=== PATIENT | female | born 1945 | race Caucasian/White ===

== ENCOUNTER 2016-11-22 11:21 | Emergency (ER) | payer OTHER, MEDICARE ==
[~2016-11-22] VITALS: Ht 160 cm; Wt 113.0 kg
[~2016-11-22 11:21] MED LIST: ACET-1256 PO; AMLO5TAB2 PO; ASPI81TA28 PO; ATOR-26 PO; CHOL2000 PO; CYAN10005 PO; EZET10TA63 PO; FAMO40TA6 PO; HYDR25TA4 PO; INSDGI SC; LEVO25TA5 PO; LISI-461 PO; METO25TA56 PO; NYST100010 TOP; OMEG10007 PO; OXYC-57 PO; REPA2TAB13 PO
[2016-11-22 11:32] VITALS: TEMP 36.6
[2016-11-22 11:43] VITALS: O2SAT 96
[2016-11-22] MEDS ORDERED: INSDGI SC (11:52)
[2016-11-22] MEDS ORDERED: MECLIZINE HCL 25 MG TAB PO STA (12:26)
[2016-11-22] MEDS ORDERED: SODIUM CHLORIDE 0.9% 1000ML 1,000 ML IV STA (12:26)
[2016-11-22 12:32] VITALS: Ht 160 cm; Wt 113.0 kg
[2016-11-22 12:39] LABS: BASO % 0.4 %; BASO ABS # 0.03 K/uL (0-0.2); COMPLETE YES; EOS % 3.4 %; IG% 0.7 %; LYMPH % 18.9 %; LYMPH ABS # 1.51 K/uL (1.2-3.4); MEAN CELL VOLUME 87.6 fL (80-100); MEAN CORPUSCULAR HEMOGLOBIN 29.3 pg (25-34); MEAN CORPUSCULAR HGB CONC 33.5 g/dl (32-36); MEAN PLATELET VOLUME 11.1 fL (7.4-10.4); MONO % 10.4 %; NEUT % 66.2 %; PLATELET COUNT 217 K/uL (130-400); RED BLOOD COUNT 4.91 M/uL (4.2-5.4); WHITE BLOOD COUNT 8.01 K/uL (4.8-10.8)
[2016-11-22] MEDS ORDERED: ONDANSETRON INJ 2 MG/ML 2 ML VIAL IV STA (12:46)
--- NOTE | 2016-11-22 12:54 | EMERGENCY ROOM VISIT NOTE ---
History Report prepared by Faith: Amina Howard Under the Supervision of: Dr. Hari Juares M.D. First contact with patient: 12:01 Chief Complaint: DIZZY Stated Complaint: DIZZY, LIGHT HEADED, SICK TO STOMACH Nursing Triage Summary: dizzy for approx one hour, "I feel a lot of pressure in my forehead and the back of my head" per pt. Pt states she had migraines in the past; has not had one for approx 20 years. Hx of vertigo in the past - states feels different. History of Present Illness The patient is a 71 year old female who presents to the Emergency Room with complaints of intermittent dizziness and lightheadedness starting a few minutes prior to arrival. She was doing laundry when she had an onset of her symptoms. She sat down and put her head back with worsening symptoms. She has symptoms relief with holding her head still. The episode lasted for about 10-15 minutes. She denies fevers, chills, cough, sneezing, chest pain, abdominal pain, or any other complaints. She had yogurt this morning. The patient reports normal fluid intake. She has a history of vertigo occurring a few years ago but reports that her current symptoms are much milder than her past vertigo symptoms. The patient also has a history of diabetes and hypertension. Source of History: patient Onset: a few minutes prior to arrival Position: other (global) Quality: other (dizziness and lightheadedness) Timing: intermittent Modifying Factors (Relieving): other (holding her head still) Associated Symptoms: No abdominal pain, No chest pain, No chills, No cough, No fevers Review of Systems See HPI for pertinent positives & negatives. A total of 10 systems reviewed and were otherwise negative. 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 (15) Perforated sigmoid colon (16) Perforation of sigmoid colon (17) Resistant hypertension (18) Urinary tract infection (19) Urinary tract infection (20) Urinary tract infection (21) Ventral hernia (22) Vertigo (23) Vomiting Surgical Problems: (1) Cholecystectomy (2) History of - section (3) History of ovarian cystectomy (4) Hx of cholecystectomy (5) Lens Replacement Nec (6) S/P exploratory laparotomy Family History Diabetes mellitus FH: hyperlipidemia Heart disease Stroke Social History Smoking Status: Never Smoker Alcohol Use: none Drug Use: none Marital Status: Housing Status: lives with family Occupation Status: retired Current/Historical Medications Scheduled Amlodipine Besylate (Norvasc), 5 MG PO QAM Aspirin (Aspirin Ec), 81 MG PO QAM Atorvastatin (Lipitor), 80 MG PO QAM Cephalexin Monohydrate (Keflex), 1 CAP PO BID Cholecalciferol (Vitamin D3), 1 CAP PO QAM Cyanocobalamin (Vitamin B-12), 1,000 MCG PO QAM Ezetimibe (Zetia), 10 MG PO HS Famotidine (Pepcid), 40 MG PO QAM Hydrochlorothiazide (Hctz), 25 MG PO QAM Insulin Glargine (Lantus), 80 UNITS SC QPM Levothyroxine Sodium (Levothyroxine Sodium), 1 TAB PO QAM Lisinopril (Zestril), 10 MG PO QAM Metoprolol Tartrate (Lopressor) (Lopressor), 50 MG PO BID Repaglinide (Prandin), 2-4 MG PO AC Scheduled PRN Meclizine Hcl (Meclizine Hcl), 1 TAB PO TID PRN for Dizziness or Vertigo Nystatin (Topical) (Nystop), 1 DOSE TOP TID PRN for RN Allergies Coded Allergies: Sulfa Antibiotics (Verified Allergy, Mild, "SULFA DRUGS"-HIVES, 11/22/16) Physical Exam Vital Signs Date Time Temp Pulse Resp B/P Pulse Ox O2 Delivery O2 Flow Rate FiO2 11/22/16 14:44 71 16 137/81 94 11/22/16 14:27 71 16 137/81 94 Room Air 11/22/16 13:52 75 11/22/16 13:07 71 15 158/86 95 Room Air 11/22/16 11:48 68 138/93 74 146/89 73 158/101 11/22/16 11:44 69 19 156/105 95 Room Air 11/22/16 11:43 96 Room Air 11/22/16 11:32 36.6 87 18 135/81 96 Room Air Physical Exam GENERAL: Patient is a healthy-appearing well-nourished HEAD: Normocephalic atraumatic EYES: Ocular movements intact pupils equal and react to light OROPHARYNX mucous membranes are moist no exudates present no erythema or edema present NECK: Supple no nuchal rigidity CHEST: Good equal expansion LUNGS: Clear and equal to auscultation CARDIAC: Normal S1 and S2 ABDOMEN: Soft nontender no guarding BACK: No CVA tenderness EXTREMITIES: No pain upon palpation normal muscle strength in all groups no clubbing cyanosis or edema NEURO: Patient is following commands is answering questions appropriately. Alert and oriented x3 Cranial Nerves 2-12 grossly intact. Positive Gretta-Hallpike maneuver on the left. Medical Decision & Procedures ER Provider Diagnostic Interpretation: X-ray results as stated below per my interpretation and radiologist interpretation. CT results as stated below per my review and radiologist interpretation: CHEST ONE VIEW PORTABLE CLINICAL HISTORY: Dizziness. Nausea. COMPARISON STUDY: Chest radiograph September 08, 2016. FINDINGS: Lung volumes are normal. There is no pneumothorax or pleural effusion. There is no evidence of pulmonary edema. Cardiac size is normal. Mild mediastinal widening and hilar enlargement is unchanged. IMPRESSION: 1. No acute cardiopulmonary findings. 2. Stable mild bilateral hilar enlargement. Electronically signed by: Roby Rios M.D. 11/22/2016 12:56 PM Dictated Date/Time: 11/22/2016 12:[address] CT DOSE: 537.48 mGy.cm HISTORY: Pt c/o dizziness TECHNIQUE: Multiaxial CT images of the head were performed without the use of intravenous contrast. Automated exposure control was utilized for this study. Comparison: Head CT 05/14/2014. Findings: The paranasal sinuses and mastoid air cells are clear. The calvarium and skull base are intact. There is no mass, hematoma, midline shift, acute infarct. White matter hypodensity is nonspecific but suggestive of microvascular ischemic change. The ventricles and sulci demonstrate mild age-related involutional changes. Old small lacunar infarcts seen within the right cerebellar hemisphere. Impression: No acute intracranial abnormality. Atrophy and microvascular ischemic changes. Electronically signed by: Varun Gabriel M.D. 11/22/2016 1:04 PM Dictated Date/Time: 11/22/2016 12:59 PM Laboratory Results 11/22/16 12:25 Red Blood Count 4.91, Mean Corpuscular Volume 87.6, Mean Corpuscular Hemoglobin 29.3, Mean Corpuscular Hemoglobin Concent 33.5, Mean Platelet Volume 11.1, Neutrophils (%) (Auto) 66.2, Lymphocytes (%) (Auto) 18.9, Monocytes (%) (Auto) 10.4, Eosinophils (%) (Auto) 3.4, Basophils (%) (Auto) 0.4, Neutrophils # (Auto ) 5.31, Lymphocytes # (Auto) 1.51, Monocytes # (Auto) 0.83, Eosinophils # (Auto ) 0.27, Basophils # (Auto) 0.03 11/22/16 12:25 Test 11/22/16 12:25 11/22/16 12:26 11/22/16 12:30 11/22/16 13:10 White Blood Count 8.01 K/uL (4.8-10.8) Red Blood Count 4.91 M/uL (4.2-5.4) Hemoglobin 14.4 g/dL (12.0-16.0) Hematocrit 43.0 % (37-47) Mean Corpuscular Volume 87.6 fL (80-100) Mean Corpuscular Hemoglobin 29.3 pg (25-34) Mean Corpuscular Hemoglobin Concent 33.5 g/dl (32-36) Platelet Count 217 K/uL (130-400) Mean Platelet Volume 11.1 fL (7.4-10.4) Neutrophils (%) (Auto) 66.2 % Lymphocytes (%) (Auto) 18.9 % Monocytes (%) (Auto) 10.4 % Eosinophils (%) (Auto) 3.4 % Basophils (%) (Auto) 0.4 % Neutrophils # (Auto) 5.31 K/uL (1.4-6.5) Lymphocytes # (Auto) 1.51 K/uL (1.2-3.4) Monocytes # (Auto) 0.83 K/uL (0.11-0.59) Eosinophils # (Auto) 0.27 K/uL (0-0.5) Basophils # (Auto) 0.03 K/uL (0-0.2) RDW Standard Deviation 56.6 fL (36.4-46.3) RDW Coefficient of Variation 17.7 % (11.5-14.5) Immature Granulocyte % (Auto) 0.7 % Immature Granulocyte # (Auto) 0.06 K/uL (0.00-0.02) Anion Gap 7.0 mmol/L (3-11) Est Creatinine Clear Calc Drug Dose 60.6 ml/min Estimated GFR () 64.7 Estimated GFR (Non- 55.8 BUN/Creatinine Ratio 17.1 (10-20) Calcium Level 9.2 mg/dl (8.5-10.1) Total Bilirubin 0.5 mg/dl (0.2-1) Direct Bilirubin < 0.1 mg/dl (0-0.2) Aspartate Amino Transf (AST/SGOT) 21 U/L (15-37) Alanine Aminotransferase (ALT/SGPT) 36 U/L (12-78) Alkaline Phosphatase 101 U/L (45-117) Total Creatine Kinase 96 U/L (26-192) Creatine Kinase MB 1.2 ng/ml (0.5-3.6) Troponin I < 0.015 ng/ml (0-0.045) Total Protein 7.5 gm/dl (6.4-8.2) Albumin 3.5 gm/dl (3.4-5.0) Thyroid Stimulating Hormone (TSH) 2.860 uIu/ml (0.300-4.500) Creatine Kinase MB Ratio (0-3.0) Bedside Glucose 131 mg/dl (70-90) Urine Color YELLOW Urine Appearance CLEAR (CLEAR) Urine pH 5.0 (4.5-7.5) Urine Specific Maud 1.014 (1.000-1.030) Urine Protein NEG (NEG) Urine Glucose (UA) NEG (NEG) Urine Ketones NEG (NEG) Urine Occult Blood TRACE (NEG) Urine Nitrite NEG (NEG) Urine Bilirubin NEG (NEG) Urine Urobilinogen NEG (NEG) Urine Leukocyte Esterase NEG (NEG) Urine WBC (Auto) 1-5 /hpf (0-5) Urine RBC (Auto) 0-4 /hpf (0-4) Urine Hyaline Casts (Auto) 1-5 /lpf (0-5) Urine Epithelial Cells (Auto) >30 /lpf (0-5) Urine Bacteria (Auto) NEG (NEG) Labs reviewed by ED physician. Medications Administered Medications (Trade) Dose Ordered Sig/Evans Route Start Time Stop Time Status Last Admin Dose Admin Sodium Chloride (Nss 1000ml) 1,000 ml @ 999 mls/hr Q1H1M STAT IV 11/22/16 12:26 11/22/16 13:26 DC 11/22/16 13:06 999 MLS/HR Meclizine HCl (Antivert Tab) 25 mg NOW STAT PO 11/22/16 12:26 11/22/16 12:29 DC 11/22/16 13:07 25 MG Ondansetron HCl (Zofran Inj) 4 mg NOW STAT IV 11/22/16 12:46 11/22/16 12:47 DC 11/22/16 13:06 4 MG Ceftriaxone Sodium (Rocephin Inj) 1 gm NOW STAT IV 11/22/16 13:22 11/22/16 13:23 DC 11/22/16 13:29 1 GM ECG Indication: other (dizziness) Rate (beats per minute): 69 Rhythm: normal sinus Findings: no acute ischemic change, no ectopy ED Course 1201: Past medical records reviewed. The patient was evaluated in room B11B. A complete history and physical examination was performed. 1226: Antivert Tab 25 mg PO, Sodium Chloride 1000 ml @ 999 mls/hr IV 1246: Zofran Inj 4 mg IV 1322: Rocephin Inj 1 gm IV 1430: Upon reexamination the patient is resting comfortably. I discussed results and treatment plan with the patient. She verbalizes agreement and understanding. The patient is ready for discharge. Medical Decision Differential diagnosis: Etiologies such as benign positional vertigo, dehydration, hypovolemia, anemia, tumor, infection, hypoglycemia, electrolyte abnormalities, cardiac sources, intracerebral event, toxicologic, neurologic, as well as others were entertained. This is a 71-year-old female who presents emergency department with complaints of dizziness. The patient does have a positive Gretta-Hallpike maneuver on the left. This reason she was given IV saline bolus along with Zofran and meclizine. Repeat examination revealed improvement patient's symptoms. The patient does appear to have small amount of blood in her urine as well and I will place her on Rocephin pending urine culture results. Patient was in agreement with the treatment plan. Prior to discharge the patient was able to ambulate and appeared well. I stressed the need to return if her symptoms were not improving. Impression Primary Impression: Dizziness Scribe Attestation The scribe's documentation has been prepared under my direction and personally reviewed by me in its entirety. I confirm that the note above accurately reflects all work, treatment, procedures, and medical decision making performed by me. Departure Information Dispostion Home / Self-Care Prescriptions Cephalexin Monohydrate (Keflex) 500 Mg Cap 1 CAP PO BID for 7 Days, #14 CAP Prov: Hari Juares MD 11/22/16 Meclizine Hcl (MECLIZINE HCL) 25 Mg Tab 1 TAB PO TID Y for Dizziness or Vertigo for 10 Days, #30 TAB Prov: Hari Juares MD 11/22/16 Referrals Dalton Soriano M.D. (PCP) Forms HOME CARE DOCUMENTATION FORM, IMPORTANT VISIT INFORMATION Patient Instructions Dizziness Vertigo Inner Ear, ED Dizziness [facility], [facility], Vertigo Paroxysmal Positional Additional Instructions You have been examined and treated today on an emergency basis only. This is not a substitute for, or an effort to provide, complete comprehensive medical care. It is impossible to recognize and treat all injuries or illnesses in a single emergency department visit. It is therefore important that you follow up closely with Dr Soriano. Call as soon as possible for an appointment. Thank you for your time and consideration. I look forward to speaking with you again soon. Please don't hesitate to call us if you have any questions.
--- NOTE | 2016-11-22 12:57 | DIAGNOSTIC IMAGING REPORT ---
CHEST ONE VIEW PORTABLE CLINICAL HISTORY: Dizziness. Nausea. COMPARISON STUDY: Chest radiograph September 08, 2016. FINDINGS: Lung volumes are normal. There is no pneumothorax or pleural effusion. There is no evidence of pulmonary edema. Cardiac size is normal. Mild mediastinal widening and hilar enlargement is unchanged. IMPRESSION: 1. No acute cardiopulmonary findings. 2. Stable mild bilateral hilar enlargement. Electronically signed by: Roby Rios M.D. 11/22/2016 12:56 PM Dictated Date/Time: 11/22/2016 12:51 PM
--- NOTE | 2016-11-22 13:06 | DIAGNOSTIC IMAGING REPORT ---
HEAD CT NONCONTRAST CT DOSE: 537.48 mGy.cm HISTORY: Pt c/o dizziness TECHNIQUE: Multiaxial CT images of the head were performed without the use of intravenous contrast. Automated exposure control was utilized for this study. Comparison: Head CT 05/14/2014. Findings: The paranasal sinuses and mastoid air cells are clear. The calvarium and skull base are intact. There is no mass, hematoma, midline shift, acute infarct. White matter hypodensity is nonspecific but suggestive of microvascular ischemic change. The ventricles and sulci demonstrate mild age-related involutional changes. Old small lacunar infarcts seen within the right cerebellar hemisphere. Impression: No acute intracranial abnormality. Atrophy and microvascular ischemic changes. Electronically signed by: Varun Gabriel M.D. 11/22/2016 1:04 PM Dictated Date/Time: 11/22/2016 12:59 PM
[2016-11-22 13:12] LABS: ALKALINE PHOSPHATASE 101 U/L (45-117); ALT/SGPT 36 U/L (12-78); BLOOD UREA NITROGEN 17 mg/dl (7-18); CALCIUM 9.2 mg/dl (8.5-10.1); CARBON DIOXIDE 28 mmol/L (21-32); CHLORIDE 106 mmol/L (98-107); GLUCOSE 150 mg/dl (70-99); SODIUM 141 mmol/L (136-145)
[2016-11-22 13:13] LABS: BUN/CREATININE RATIO 17.1 (10-20); CKMB/CK RATIO 1.3 (0-3.0)
[2016-11-22] MEDS ORDERED: CEFTRIAXONE SOD INJ 1 GM ADDVIAL IV STA (13:22)
[2016-11-22 13:28] LABS: AST/SGOT 21 U/L (15-37); POTASSIUM 4.5 mmol/L (3.5-5.1)
[2016-11-22 13:39] LABS: URINE APPEARANCE CLEAR (CLEAR); URINE BILIRUBIN NEG (NEG); URINE COLOR YELLOW; URINE EPITHELIAL CELL AUTO >30 /lpf (0-5); URINE NITRITE NEG (NEG); URINE SPECIFIC GRAVITY 1.014 (1.000-1.030); UROBILINOGEN NEG (NEG)
[2016-11-22 13:53] LABS: MANUAL MICROSCOPIC REQUIRED? NO; REVIEW REQ? NO
[2016-11-22] MEDS ORDERED: MECL1TAB42 PO (14:23)
[2016-11-22] MEDS ORDERED: CEPH500C PO (14:24)
[2016-11-22 14:44] VITALS: BP 137/81; PULSE 71; O2SAT 94
[2017-04-09] MEDS ORDERED: REPA2TAB13 PO ×2 (15:16)
== END 2016-11-22 14:44 | disposition home or self-care (01) ==
LOC: C.EDB 11:23
DX: R42 Dizziness and giddiness (principal); E11.9 Type 2 diabetes mellitus without complications; I12.9 Hypertensive chronic kidney disease with stage 1 through stage 4 chronic kidney disease, or unspecified chronic kidney disease; N18.9 Chronic kidney disease, unspecified; E78.5 Hyperlipidemia, unspecified; E03.9 Hypothyroidism, unspecified; K57.90 Diverticulosis of intestine, part unspecified, without perforation or abscess without bleeding; K57.92 Diverticulitis of intestine, part unspecified, without perforation or abscess without bleeding; Z87.440 Personal history of urinary (tract) infections; Z87.442 Personal history of urinary calculi; Z90.49 Acquired absence of other specified parts of digestive tract; Z79.82 Long term (current) use of aspirin; Z79.4 Long term (current) use of insulin; Z79.899 Other long term (current) drug therapy; Z88.2 Allergy status to sulfonamides; Z83.3 Family history of diabetes mellitus; Z82.49 Family history of ischemic heart disease and other diseases of the circulatory system; Z82.3 Family history of stroke

== ENCOUNTER → 2016-12-07 | Outpatient (CLI) | payer OTHER, MEDICARE ==
[~2016-12-07] MED LIST changes: -ACET-1256 PO; +ATOR-24 PO; -OMEG10007 PO; -OXYC-57 PO
[2016-12-07 13:20] LABS: ESTIMATED AVERAGE GLUCOSE 180 mg/dl; HA1C FLAG Normal (Normal)
== END | disposition home or self-care (01) ==
LOC: C.LABPVFM 08:05
PROVIDERS: ATTEND Nurse Practitioner Adult Health
DX: E03.9 Hypothyroidism, unspecified (principal); E11.21 Type 2 diabetes mellitus with diabetic nephropathy

== ENCOUNTER → 2017-02-13 | Outpatient (CLI) | payer OTHER, MEDICARE ==
[~2017-02-13] MED LIST changes: +REPA2TAB12 PO; -REPA2TAB13 PO
[2017-02-13 13:21] LABS: CHOLESTEROL/HDL RATIO 2.9
== END | disposition home or self-care (01) ==
LOC: C.LABPVFM 07:34
PROVIDERS: ATTEND Family Medicine
DX: E78.5 Hyperlipidemia, unspecified (principal); E03.9 Hypothyroidism, unspecified; I10 Essential (primary) hypertension; E11.29 Type 2 diabetes mellitus with other diabetic kidney complication; K21.9 Gastro-esophageal reflux disease without esophagitis

== ENCOUNTER → 2017-03-13 | Outpatient (CLI) | payer OTHER, MEDICARE ==
[2017-03-13 12:25] LABS: ESTIMATED AVERAGE GLUCOSE 192 mg/dl; HA1C FLAG Normal (Normal)
== END | disposition home or self-care (01) ==
LOC: C.LABPVFM 07:21
PROVIDERS: ATTEND Nurse Practitioner Adult Health
DX: Z79.899 Other long term (current) drug therapy (principal)

== ENCOUNTER → 2017-04-07 | Outpatient (CLI) | payer OTHER, MEDICARE ==
[2017-04-07 13:03] LABS: URINE APPEARANCE TURBID (CLEAR); URINE BILIRUBIN NEG (NEG); URINE COLOR YELLOW; URINE EPITHELIAL CELL AUTO 20-30 /lpf (0-5); URINE NITRITE NEG (NEG); UROBILINOGEN NEG (NEG); ZZUR CULT IF INDIC CLEAN CATCH NO
[2017-04-07 13:05] LABS: MANUAL MICROSCOPIC REQUIRED? NO; REVIEW REQ? NO
[2017-04-07 13:08] LABS: URINE PROTIEN/CREAT RATIO 0.1 (0-0.2); URINE TOTAL PROTEIN 15.1 mg/dl (0-11.9)
[2017-04-07 13:22] LABS: BLOOD UREA NITROGEN 23 mg/dl (7-18); BUN/CREATININE RATIO 17.8 (10-20); CARBON DIOXIDE 28 mmol/L (21-32); CHLORIDE 106 mmol/L (98-107); GLUCOSE 136 mg/dl (70-99); MAGNESIUM 2.1 mg/dl (1.8-2.4); PHOSPHORUS 2.8 mg/dl (2.5-4.9); SODIUM 141 mmol/L (136-145)
[2017-04-07 13:31] LABS: CALCIUM 9.6 mg/dl (8.5-10.1)
--- NOTE | 2017-04-13 09:12 | CODING QUERY MEDICAL NECESSITY ---
SUPPORTING DIAGNOSIS NEEDED Dr. Car, A supporting diagnosis is required for the test/procedure performed on this patient in order for us to be reimbursed by the patient's insurance. Please provide a supporting diagnosis for the following test/procedure listed below next to the test name along with your signature. *If there is no additional diagnosis for this patient that would support the following test/procedure please document that below next to the test/procedure. Test(s)/Procedure(s) that require a supporting diagnosis: * ([id number]) VITAMIN D ASSAY DIAGNOSIS: DATE OF SERVICE: 04/07/17 Provider Signature: Date: Thank you Heath Aguilar [facility] Information Management Once completed, please kindly fax back to [phone] For questions please call [phone]
== END | disposition home or self-care (01) ==
LOC: C.LABPVFM 08:19
PROVIDERS: ATTEND Internal Medicine Nephrology
DX: N20.0 Calculus of kidney (principal); E55.9 Vitamin D deficiency, unspecified

== ENCOUNTER 2017-04-09 13:15 | Emergency (ER) | payer OTHER, MEDICARE ==
[~2017-04-09] VITALS: Ht 160 cm; Wt 113.0 kg
[~2017-04-09 13:15] MED LIST changes: -ATOR-24 PO
[2017-04-09 13:21] VITALS: Ht 160 cm; Wt 113.0 kg
[2017-04-09] MEDS ORDERED: SODIUM CHLORIDE 0.9% 500ML 500 ML IV STA (13:51)
[2017-04-09 14:00] LABS: BASO % 0.5 %; BASO ABS # 0.03 K/uL (0-0.2); COMPLETE YES; EOS % 2.8 %; HEMATOCRIT 46.1 % (37-47); IG% 0.3 %; LYMPH % 23.1 %; LYMPH ABS # 1.47 K/uL (1.2-3.4); MEAN CELL VOLUME 87.8 fL (80-100); MEAN PLATELET VOLUME 11.1 fL (7.4-10.4); NEUT % 62.3 %; PLATELET COUNT 194 K/uL (130-400); RED BLOOD COUNT 5.25 M/uL (4.2-5.4); WHITE BLOOD COUNT 6.36 K/uL (4.8-10.8)
[2017-04-09] MEDS ORDERED: FENTANYL CITRATE INJ 50 MCG/1 ML 2 ML VIAL IV PRN (14:00)
[2017-04-09 14:05] LABS: URINE APPEARANCE CLEAR (CLEAR); URINE BILIRUBIN NEG (NEG); URINE COLOR YELLOW; URINE EPITHELIAL CELL AUTO >30 /lpf (0-5); URINE NITRITE NEG (NEG); URINE PH 5.5 (4.5-7.5); URINE SPECIFIC GRAVITY 1.017 (1.000-1.030); UROBILINOGEN NEG (NEG); ZZUR CULT IF INDIC CLEAN CATCH YES
[2017-04-09 14:06] LABS: MANUAL MICROSCOPIC REQUIRED? NO; REVIEW REQ? NO
--- NOTE | 2017-04-09 14:12 | DIAGNOSTIC IMAGING REPORT ---
SINGLE VIEW CHEST CLINICAL HISTORY: Trauma. Atypical chest pain. FINDINGS: An AP, portable, upright chest radiograph is compared to study dated 11/22/2016. The examination is degraded by portable technique, large body habitus, and patient rotation. The heart is mildly enlarged and there is atherosclerotic calcification of the thoracic aorta. The pulmonary vasculature is noncongested chronic interstitial thickening is similar previous. The lungs and pleural spaces are clear. No pneumothorax is seen. The skeletal structures are osteopenic. The bony thorax is grossly intact. IMPRESSION: Mild cardiac enlargement with no acute cardiopulmonary abnormality. Electronically signed by: Ignacio Cabrera M.D. 04/09/2017 2:10 PM Dictated Date/Time: 04/09/2017 2:10 PM
[2017-04-09 14:43] LABS: ALKALINE PHOSPHATASE 87 U/L (45-117); ALT/SGPT 29 U/L (12-78); BLOOD UREA NITROGEN 23 mg/dl (7-18); BUN/CREATININE RATIO 16.3 (10-20); CALCIUM 8.8 mg/dl (8.5-10.1); CARBON DIOXIDE 27 mmol/L (21-32); CHLORIDE 106 mmol/L (98-107); GLUCOSE 191 mg/dl (70-99); SODIUM 142 mmol/L (136-145)
--- NOTE | 2017-04-09 14:44 | EMERGENCY ROOM VISIT NOTE ---
History First contact with patient: 13:40 Chief Complaint: ABDOMINAL PAIN Stated Complaint: STOMACH PAIN,POSSIBLE KIDNEY STONE Nursing Triage Summary: pt to [facility] ED with migastric abd pain that started today and is concerned about her hernia or a kidney stone History of Present Illness The patient is a 72 year old female who presents to the Emergency Room with complaints of left-sided abdominal pain that started around 10 AM today. Patient states the pain came on rather suddenly, initially felt like gas pain but continued to get more severe and did not improve, aching in nature, 05/15. No associated symptoms of nausea, vomiting, diarrhea, constipation, dysuria or hematuria, fevers or chills. She did not try any [id number] medications for her pain. Patient reports a normal bowel movement this morning. She has been tolerating food, last ate at 11 AM today. She reports a history of diverticulitis and multiple kidney stones in the past, states this feels different than both of those problems. She also has a history of a ventral hernia that was surgically repaired in September 2016 and she has been doing well since that procedure. She denies chest pain, shortness of breath, back pain, rashes. Review of Systems GENERAL: Denies fevers, chills, malaise, fatigue, unintentional weight changes. HEENT: Denies dizziness, visual problems, hearing loss, tinnitus. Denies difficulty swallowing or oral lesions. PULMONARY: Denies cough, shortness of breath, sputum production or hemoptysis. CARDIOVASCULAR: Denies chest pain, palpitations, dyspnea on exertion, orthopnea or peripheral edema. + History of hypertension. GASTROINTESTINAL: + Abdominal pain. Denies diarrhea, constipation, nausea, vomiting, or hematochezia. GENITOURINARY: Denies dysuria, frequency, urgency or nocturia. NEUROLOGIC: Denies history of epilepsy, CVA, TIA or chronic headaches. MUSCULOSKELETAL: Denies history of joint tenderness/swelling. SKIN: Denies rashes or lesions. PSYCHIATRIC: Denies history of depression or mental illness. ENDOCRINE: + History of diabetes, hypothyroidism. 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 (6) Diverticulitis (7) Diverticulitis of sigmoid colon (8) Diverticulosis of sigmoid colon (9) Headache (10) Hyperlipidemia Nec/Nos (11) Hypertension Nos (12) Hypothyroidism Nos (13) Kidney stones (14) [place]'s syndrome (15) Perforated sigmoid colon (16) Perforation of sigmoid colon (17) Resistant hypertension (18) Urinary tract infection (19) Urinary tract infection (20) Urinary tract infection (21) Ventral hernia (22) Vertigo (23) Vomiting Surgical Problems: (1) Cholecystectomy (2) History of - section (3) History of ovarian cystectomy (4) Hx of cholecystectomy (5) Lens Replacement Nec (6) S/P exploratory laparotomy Family History Diabetes mellitus FH: hyperlipidemia Heart disease Stroke Social History Smoking Status: Never Smoker Alcohol Use: none Drug Use: none Marital Status: Housing Status: lives with family Occupation Status: retired Current/Historical Medications Scheduled Amlodipine Besylate (Norvasc), 5 MG PO QAM Aspirin (Aspirin Ec), 81 MG PO QAM Atorvastatin (Lipitor), 40 MG PO DAILY Cholecalciferol (Vitamin D3), 1 CAP PO QAM Cyanocobalamin (Vitamin B-12), 1,000 MCG PO QAM Ezetimibe (Zetia), 10 MG PO HS Hydrochlorothiazide (Hctz), 25 MG PO QAM Insulin Glargine (Lantus), 100 UNITS SC QPM Levothyroxine Sodium (Levothyroxine Sodium), 1 TAB PO QAM Lisinopril (Zestril), 10 MG PO QAM Metoprolol Tartrate (Lopressor) (Lopressor), 50 MG PO BID Repaglinide (Prandin), 4 MG PO DIRECTED Repaglinide (Prandin), 6 MG PO QPM Scheduled PRN Nystatin (Topical) (Nystop), 1 DOSE TOP TID PRN for RN Allergies Coded Allergies: Sulfa Antibiotics (Verified Allergy, Mild, "SULFA DRUGS"-HIVES, 11/22/16) Physical Exam Vital Signs Date Time Temp Pulse Resp B/P (MAP) Pulse Ox O2 Delivery O2 Flow Rate FiO2 04/09/17 17:01 36.6 69 18 138/71 94 04/09/17 16:08 69 18 138/71 94 Room Air 04/09/17 14:32 65 16 90 Room Air 04/09/17 14:29 66 04/09/17 13:21 36.6 80 20 151/78 90 Room Air Physical Exam CONSTITUTIONAL: No acute distress. Well appearing and well nourished. She is nontoxic appearing. She appears well-hydrated. Alert and oriented X 4 with normal affect. HEENT: Normocephalic, atraumatic. Pupils equal, round and reactive to light, EOMI. TMs normal. Pharynx normal. Moist mucous membranes. NECK: Supple, full active range of motion without discomfort. RESPIRATORY: Clear to auscultation bilaterally with no wheezing, crackles, rhonchi or stridor. Equal expansion bilaterally. CARDIOVASCULAR: Regular rate and rhythm with no murmurs, rubs or gallops. Normal peripheral perfusion. No edema. GASTROINTESTINAL: Soft, obese, nondistended. Bowel sounds present in all quadrants. Moderate tenderness in the left mid abdomen and flank. No epigastric or periumbilical tenderness to palpation. No rebound, no guarding. MUSCULOSKELETAL: Full range of motion of all joints without discomfort. INTEGUMENTARY: No rash or other significant dermatologic conditions noted. NEUROLOGIC: Cranial nerves II-XII grossly intact. No focal neurologic deficits noted. Medical Decision & Procedures ER Provider Diagnostic Interpretation: ABDOMEN AND PELVIS CT WITHOUT CONTRAST CT DOSE: 1890.57 mGy.cm HISTORY: Flank pain, eval for stone TECHNIQUE: Multiaxial CT images of the abdomen and pelvis were performed without the use of intravenous and oral contrast according to the standard department stone protocol. COMPARISON STUDY: Abdomen and pelvis CT 09/08/2016. FINDINGS: Mild dependent changes at the lung bases. No pneumoperitoneum. No pneumatosis. No fractures within the visualized osseous structures. Lower midline ventral hernia repair is again noted. Small diverticulum at the duodenum. Cholecystectomy. The unenhanced liver demonstrates a stable 7 mm hypodense lesion within the right hepatic lobe. This is too small to characterize. The unenhanced spleen, adrenal glands, and pancreas are unremarkable. There is a 2.2 cm stone within the right kidney, unchanged. There are few additional punctate right renal calculi. No left renal calculi. Small left peripelvic renal cysts. A 5.5 cm hypodense lesion within the left kidney and a 1.2 cm hypodense lesion within the right kidney. These are incomplete characterize on this noncontrast study but favor cysts. Mild bilateral perinephric edema, unchanged. No ureteral stones. No hydronephrosis. The bladder is unremarkable. A 1 cm cyst within the left ovary. Normal uterus and right ovary. Suboptimal evaluation for bowel pathology due to the lack of intravenous and oral contrast. However, there is no definite bowel wall thickening or obstruction. Extensive colonic diverticulosis. Normal appendix. IMPRESSION: 1. Stable right-sided nephrolithiasis. No hydronephrosis. 2. No definite bowel wall thickening or obstruction. 3. Colonic diverticulosis. 4. Normal appendix. ----- SINGLE VIEW CHEST CLINICAL HISTORY: Trauma. Atypical chest pain. FINDINGS: An AP, portable, upright chest radiograph is compared to study dated 11/22/2016. The examination is degraded by portable technique, large body habitus, and patient rotation. The heart is mildly enlarged and there is atherosclerotic calcification of the thoracic aorta. The pulmonary vasculature is noncongested chronic interstitial thickening is similar previous. The lungs and pleural spaces are clear. No pneumothorax is seen. The skeletal structures are osteopenic. The bony thorax is grossly intact. IMPRESSION: Mild cardiac enlargement with no acute cardiopulmonary abnormality. Laboratory Results 04/09/17 13:45 Red Blood Count 5.25, Mean Corpuscular Volume 87.8, Mean Corpuscular Hemoglobin 29.0, Mean Corpuscular Hemoglobin Concent 33.0, Mean Platelet Volume 11.1, Neutrophils (%) (Auto) 62.3, Lymphocytes (%) (Auto) 23.1, Monocytes (%) (Auto) 11.0, Eosinophils (%) (Auto) 2.8, Basophils (%) (Auto) 0.5, Neutrophils # (Auto ) 3.96, Lymphocytes # (Auto) 1.47, Monocytes # (Auto) 0.70, Eosinophils # (Auto ) 0.18, Basophils # (Auto) 0.03 04/09/17 13:45 Test 04/09/17 13:40 04/09/17 13:45 04/09/17 15:21 Urine Color YELLOW Urine Appearance CLEAR (CLEAR) Urine pH 5.5 (4.5-7.5) Urine Specific [place] 1.017 (1.000-1.030) Urine Protein NEG (NEG) Urine Glucose (UA) 1+ (NEG) Urine Ketones NEG (NEG) Urine Occult Blood 2+ (NEG) Urine Nitrite NEG (NEG) Urine Bilirubin NEG (NEG) Urine Urobilinogen NEG (NEG) Urine Leukocyte Esterase SMALL (NEG) Urine WBC (Auto) 10-30 /hpf (0-5) Urine RBC (Auto) 10-30 /hpf (0-4) Urine Hyaline Casts (Auto) 0 /lpf (0-5) Urine Epithelial Cells (Auto) >30 /lpf (0-5) Urine Bacteria (Auto) NEG (NEG) White Blood Count 6.36 K/uL (4.8-10.8) Red Blood Count 5.25 M/uL (4.2-5.4) Hemoglobin 15.2 g/dL (12.0-16.0) Hematocrit 46.1 % (37-47) Mean Corpuscular Volume 87.8 fL (80-100) Mean Corpuscular Hemoglobin 29.0 pg (25-34) Mean Corpuscular Hemoglobin Concent 33.0 g/dl (32-36) Platelet Count 194 K/uL (130-400) Mean Platelet Volume 11.1 fL (7.4-10.4) Neutrophils (%) (Auto) 62.3 % Lymphocytes (%) (Auto) 23.1 % Monocytes (%) (Auto) 11.0 % Eosinophils (%) (Auto) 2.8 % Basophils (%) (Auto) 0.5 % Neutrophils # (Auto) 3.96 K/uL (1.4-6.5) Lymphocytes # (Auto) 1.47 K/uL (1.2-3.4) Monocytes # (Auto) 0.70 K/uL (0.11-0.59) Eosinophils # (Auto) 0.18 K/uL (0-0.5) Basophils # (Auto) 0.03 K/uL (0-0.2) RDW Standard Deviation 52.3 fL (36.4-46.3) RDW Coefficient of Variation 16.5 % (11.5-14.5) Immature Granulocyte % (Auto) 0.3 % Immature Granulocyte # (Auto) 0.02 K/uL (0.00-0.02) Anion Gap 9.0 mmol/L (3-11) Est Creatinine Clear Calc Drug Dose 42.6 ml/min Estimated GFR () 42.8 Estimated GFR (Non- 36.9 BUN/Creatinine Ratio 16.3 (10-20) Calcium Level 8.8 mg/dl (8.5-10.1) Total Bilirubin 0.5 mg/dl (0.2-1) Direct Bilirubin mg/dl (0-0.2) Aspartate Amino Transf (AST/SGOT) U/L (15-37) Alanine Aminotransferase (ALT/SGPT) 29 U/L (12-78) Alkaline Phosphatase 87 U/L (45-117) Total Protein 7.0 gm/dl (6.4-8.2) Albumin 3.4 gm/dl (3.4-5.0) Lipase 177 U/L (73-393) Bedside Glucose 139 mg/dl (70-90) Medications Administered Medications (Trade) Dose Ordered Sig/Evans Route Start Time Stop Time Status Last Admin Dose Admin Fentanyl Citrate (Fentanyl Inj) 50 mcg Q20M PRN IV 04/09/17 14:00 04/09/17 18:16 DC 04/09/17 14:22 50 MCG Sodium Chloride 500 ml @ 999 mls/hr Q31M STAT IV 04/09/17 13:51 04/09/17 14:21 DC 04/09/17 14:21 999 MLS/HR Medical Decision CC: Patient presenting with complaint of left-sided abdominal pain Interpretation of Labs: No leukocytosis, no anemia, hyperglycemia, no other significant electrolyte abnormalities, renal function at baseline compared to previous, liver function wnl. Questionable UTI given leuk esterase and 10-30 WBCs, however no nitrites or bacteria noted. Urine culture pending Differential Diagnosis: Includes, but not limited to pancreatitis, GERD, gastritis, PUD, renal colic, ureteral stone, diverticulitis, colitis, UTI. Medication Reconciliation: I attest that I have personally reviewed the patient' s current medication list. Vital signs review: I reviewed the patient's vital signs and interpret them as follows: T: Afebrile; BP: Hypertensive; HR: Within normal limits; RR: Within normal limits; Pulse Ox: WNL on room air. Blood pressure screening: The patient was found to have an elevated blood pressure and was referred to their primary doctor for recheck and further treatment. Summary: Patient was evaluated at bedside, history of physical exam performed. Patient is alert and oriented, no acute distress, well-hydrated and nontoxic- appearing. Patient does have moderate tenderness to palpation of the left mid abdomen and flank, no epigastric or left upper quadrant tenderness. No CVA tenderness bilaterally. Orders were placed at bedside for labs, urinalysis, IV fluid bolus, IV fentanyl to treat pain, and CT abdomen/pelvis to evaluate for ureteral stone, diverticulitis, other abdominal pathology. Patient discussed with Dr. Ryan, who agrees with my assessment and plan. Labs reviewed, no significant acute abnormalities. Chest x-ray ordered by nursing protocol, reviewed and no acute findings. CT reviewed, no acute findings, specifically no ureteral stone, no diverticulitis. Patient's chart reviewed, multiple previous urine cultures noted that were all negative. Discussed urinalysis results with patient, she denies any symptoms of UTI. Urine culture is pending, will defer treatment at this time awaiting culture results. Patient agreeable to this plan. Patient reassessed multiple times throughout ED stay, her pain is resolved after IV fluids and fentanyl. I discussed all results with patient and plan for discharge, encouraged her to follow closely with her PCP, and gave her strict return precautions. Patient verbalized understanding, and was discharged home in stable condition. Impression Primary Impression: Left sided abdominal pain Departure Information Dispostion Home / Self-Care Condition GOOD Referrals Dalton Soriano M.D. (PCP) Patient Instructions ED Abdominal Pain Unkn Cause, My [facility] Additional Instructions You have been treated in the Emergency Department your Abdominal Pain. Laboratory results and imaging studies have ruled out any emergent causes for your abdominal pain which would warrant admission or surgery. For pain control, you can use the following [id number] medicines: - Regular strength (325mg/tab) Tylenol (acetaminophen) 2 tabs every 4-6 hours as needed. Do not exceed 10 tablets in a 24 hour period. Avoid taking more than 3 grams (3000 mg) of Tylenol per day. This includes any other sources of acetaminophen you may take on a regular basis. - Regular strength (200 mg/tab) Advil (ibuprofen) 1-2 tabs every 4-6 hours as needed. Do not exceed a dose of 3200 mg per day. You may also try applying a heating pad to your abdomen for comfort. Drink plenty of water and stay well hydrated. As with any trip to the Emergency Department, you should follow-up with your Primary Care Provider from today's visit. Call your doctor tomorrow to set up an appointment for follow-up. Please return to the emergency department if your symptoms persist despite treatment plan outlined above or if the following symptoms occur: Worsening pain , severe nausea/vomiting, blood in your stool or urine, fever/chills.
[2017-04-09] MEDS ORDERED: REPA2TAB12 PO ×2 (15:16)
[2017-04-09] MEDS ORDERED: ATOR-24 PO (15:16)
--- NOTE | 2017-04-09 15:42 | DIAGNOSTIC IMAGING REPORT ---
ABDOMEN AND PELVIS CT WITHOUT CONTRAST CT DOSE: 1890.57 mGy.cm HISTORY: Flank pain, eval for stone TECHNIQUE: Multiaxial CT images of the abdomen and pelvis were performed without the use of intravenous and oral contrast according to the standard department stone protocol. COMPARISON STUDY: Abdomen and pelvis CT 09/08/2016. FINDINGS: Mild dependent changes at the lung bases. No pneumoperitoneum. No pneumatosis. No fractures within the visualized osseous structures. Lower midline ventral hernia repair is again noted. Small diverticulum at the duodenum. Cholecystectomy. The unenhanced liver demonstrates a stable 7 mm hypodense lesion within the right hepatic lobe. This is too small to characterize. The unenhanced spleen, adrenal glands, and pancreas are unremarkable. There is a 2.2 cm stone within the right kidney, unchanged. There are few additional punctate right renal calculi. No left renal calculi. Small left peripelvic renal cysts. A 5.5 cm hypodense lesion within the left kidney and a 1.2 cm hypodense lesion within the right kidney. These are incomplete characterize on this noncontrast study but favor cysts. Mild bilateral perinephric edema, unchanged. No ureteral stones. No hydronephrosis. The bladder is unremarkable. A 1 cm cyst within the left ovary. Normal uterus and right ovary. Suboptimal evaluation for bowel pathology due to the lack of intravenous and oral contrast. However, there is no definite bowel wall thickening or obstruction. Extensive colonic diverticulosis. Normal appendix. IMPRESSION: 1. Stable right-sided nephrolithiasis. No hydronephrosis. 2. No definite bowel wall thickening or obstruction. 3. Colonic diverticulosis. 4. Normal appendix. 5. Additional findings as described above. Electronically signed by: Varun Gabriel M.D. 04/09/2017 3:40 PM Dictated Date/Time: 04/09/2017 3:28 PM
[2017-04-09 17:01] VITALS: BP 138/71; PULSE 69; TEMP 36.6; O2SAT 94
--- NOTE | 2017-04-09 19:54 | EMERGENCY ROOM VISIT NOTE ---
ED Visit Note First contact with patient: 13:40 72-year-old female with left-sided abdominal pain was fully evaluated by Tatiana Olvera NP. Please see her note. I also independently evaluated the patient. The patient had multiple labs and imaging studies performed. Ultimately, the patient was felt safe to return home.
== END 2017-04-09 16:55 | disposition home or self-care (01) ==
LOC: C.EDB 13:16 → C.EDC 16:55
DX: R10.32 Left lower quadrant pain (principal); I10 Essential (primary) hypertension; E11.9 Type 2 diabetes mellitus without complications; K57.30 Diverticulosis of large intestine without perforation or abscess without bleeding; E78.5 Hyperlipidemia, unspecified; E03.9 Hypothyroidism, unspecified; Z87.442 Personal history of urinary calculi; Z79.82 Long term (current) use of aspirin; Z79.4 Long term (current) use of insulin; Z83.3 Family history of diabetes mellitus; Z82.49 Family history of ischemic heart disease and other diseases of the circulatory system; Z82.3 Family history of stroke

== ENCOUNTER → 2017-07-03 | Outpatient (CLI) | payer OTHER, MEDICARE ==
[~2017-07-03] MED LIST changes: +ATOR-24 PO; -ATOR-26 PO; -FAMO40TA6 PO; -REPA2TAB12 PO; +REPA2TAB13 PO
[2017-07-03 13:01] LABS: CHOLESTEROL/HDL RATIO 2.7
[2017-07-03 13:21] LABS: ESTIMATED AVERAGE GLUCOSE 160 mg/dl; HA1C FLAG Normal (Normal)
== END | disposition home or self-care (01) ==
LOC: C.LABPVFM 09:10
PROVIDERS: ATTEND Nurse Practitioner Adult Health
DX: E78.5 Hyperlipidemia, unspecified (principal); E03.9 Hypothyroidism, unspecified; E11.22 Type 2 diabetes mellitus with diabetic chronic kidney disease; N18.9 Chronic kidney disease, unspecified; Z79.4 Long term (current) use of insulin

== ENCOUNTER → 2017-08-21 | Outpatient (CLI) | payer OTHER, MEDICARE ==
[2017-08-21 12:58] LABS: BLOOD UREA NITROGEN 24 mg/dl (7-18); BUN/CREATININE RATIO 21.3 (10-20); CALCIUM 9.6 mg/dl (8.5-10.1); CARBON DIOXIDE 28 mmol/L (21-32); CHLORIDE 104 mmol/L (98-107); CREATININE 1.14 mg/dl (0.60-1.20); GLUCOSE 119 mg/dl (70-99); POTASSIUM 3.9 mmol/L (3.5-5.1); SODIUM 139 mmol/L (136-145)
== END ==
LOC: C.LABPVFM 07:17
PROVIDERS: ATTEND Family Medicine
DX: I10 Essential (primary) hypertension (principal); E55.9 Vitamin D deficiency, unspecified

== ENCOUNTER → 2017-10-02 | Outpatient (CLI) | payer OTHER, MEDICARE ==
[~2017-10-02] MED LIST changes: +REPA2TAB12 PO; -REPA2TAB13 PO
[2017-10-02 12:50] LABS: BASO % 0.6 %; BASO ABS # 0.04 K/uL (0-0.2); COMPLETE YES; EOS % 4.1 %; HEMATOCRIT 46.1 % (37-47); IG% 0.4 %; LYMPH % 23.7 %; LYMPH ABS # 1.61 K/uL (1.2-3.4); MEAN CELL VOLUME 88.7 fL (80-100); MEAN CORPUSCULAR HEMOGLOBIN 29.4 pg (25-34); MEAN CORPUSCULAR HGB CONC 33.2 g/dl (32-36); MEAN PLATELET VOLUME 11.6 fL (7.4-10.4); NEUT % 57.2 %; PLATELET COUNT 220 K/uL (130-400)
[2017-10-02 13:14] LABS: URINE APPEARANCE CLEAR (CLEAR); URINE BILIRUBIN NEG (NEG); URINE COLOR YELLOW; URINE EPITHELIAL CELL AUTO 20-30 /lpf (0-5); URINE NITRITE NEG (NEG); URINE SPECIFIC GRAVITY 1.019 (1.000-1.030); UROBILINOGEN NEG (NEG); ZZUR CULT IF INDIC CLEAN CATCH NO
[2017-10-02 13:21] LABS: CREATININE, URINE 77.4 mg/dl; URINE PROTIEN/CREAT RATIO 0.1 (0-0.2); URINE TOTAL PROTEIN 8.1 mg/dl (0-11.9)
[2017-10-02 13:23] LABS: MANUAL MICROSCOPIC REQUIRED? NO; REVIEW REQ? NO
[2017-10-02 14:39] LABS: BLOOD UREA NITROGEN 28 mg/dl (7-18); BUN/CREATININE RATIO 23.3 (10-20); CALCIUM 9.1 mg/dl (8.5-10.1); CARBON DIOXIDE 27 mmol/L (21-32); CHLORIDE 102 mmol/L (98-107); CREATININE 1.18 mg/dl (0.60-1.20); GLUCOSE 114 mg/dl (70-99); MAGNESIUM 2.1 mg/dl (1.8-2.4); PHOSPHORUS 3.2 mg/dl (2.5-4.9); POTASSIUM 3.8 mmol/L (3.5-5.1); SODIUM 136 mmol/L (136-145)
[2017-10-02 14:43] LABS: ESTIMATED AVERAGE GLUCOSE 157 mg/dl; HA1C FLAG Normal (Normal)
== END | disposition home or self-care (01) ==
LOC: C.LABPVFM 07:46
PROVIDERS: ATTEND Nurse Practitioner Adult Health
DX: N18.3 Chronic kidney disease, stage 3 (moderate) (principal); E78.5 Hyperlipidemia, unspecified; E11.29 Type 2 diabetes mellitus with other diabetic kidney complication

== ENCOUNTER 2018-01-24 15:53 | Emergency (ER) | payer OTHER, MEDICARE ==
[~2018-01-24] VITALS: Ht 160 cm; Wt 109.0 kg
[2018-01-24 15:54] VITALS: TEMP 36.5; Ht 160 cm; Wt 109.0 kg
[2018-01-24 16:47] LABS: BASO % 0.5 %; BASO ABS # 0.04 K/uL (0-0.2); EOS % 2.8 %; EOS ABS # 0.23 K/uL (0-0.5); HEMATOCRIT 48.1 % (37-47); HEMOGLOBIN 16.1 g/dL (12.0-16.0); IG# 0.03 K/uL (0.00-0.02); LYMPH % 24.2 %; LYMPH ABS # 2.01 K/uL (1.2-3.4); MEAN CELL VOLUME 86.7 fL (80-100); MEAN CORPUSCULAR HGB CONC 33.5 g/dl (32-36); MEAN PLATELET VOLUME 11.6 fL (7.4-10.4); MONO % 14.1 %; MONO ABS # 1.17 K/uL (0.11-0.59); NEUT ABS # 4.84 K/uL (1.4-6.5); PLATELET COUNT 213 K/uL (130-400); RED CELL DISTRIBUTION WIDTH CV 16.3 % (11.5-14.5); RED CELL DISTRIBUTION WIDTH SD 51.8 fL (36.4-46.3); WHITE BLOOD COUNT 8.32 K/uL (4.8-10.8)
--- NOTE | 2018-01-24 17:06 | DIAGNOSTIC IMAGING REPORT ---
ABDOMEN AND PELVIS CT WITHOUT CONTRAST CT DOSE: 1532.01 mGy.cm HISTORY: Acute low back pain with history of kidney stones eval stone, pls include recon imaging of L-spine TECHNIQUE: Multiaxial CT images of the abdomen and pelvis were performed without contrast. A dose lowering technique was utilized adhering to the principles of ALARA. COMPARISON STUDY: CT abdomen and pelvis 04/09/2017. FINDINGS: Mild subsegmental dependent bibasilar atelectasis. Evaluation of the lung bases is limited secondary to respiratory motion. No pneumatosis or pneumoperitoneum identified. Imaged inferior cardiac chambers are unremarkable. Coronary arterial disease. Evaluation of the solid abdominal organs is limited without the use of IV contrast. Within the limitations of the study, the liver, spleen, pancreas and adrenal glands are unremarkable. Prior cholecystectomy. Large cyst of the superior pole left kidney measures 0.8 x 5.9 cm. Mild bilateral perinephric stranding. There is a large 2.4 x 2.1 cm calculus of the posterior interpolar right kidney with additional nonobstructing calculi measuring up to 5 mm within the inferior pole right kidney. No ureteral calculi or obstructive uropathy. 12 mm low attenuating lesion of the superior pole right kidney is again seen suggesting cyst. Urinary bladder is unremarkable. Mild nodular contour also left aspect of the uterus, possibly secondary to underlying fibroids. Punctate calcifications of the left uterine fundus noted. No definite adnexal mass lesions identified. Moderate calcification of the aorta without aneurysm. No pathologic adenopathy identified. There is no bowel obstruction or focal bowel wall thickening identified. Moderate stool volume throughout the colon. Extensive colonic diverticulosis without CT evidence of acute diverticulitis. The appendix appears noninflamed. Postoperative changes from prior ventral wall herniorrhaphy without definite recurrent hernia identified. Bones appear intact. Degenerative changes about the pelvis, hips and lumbar spine. Severe facet arthrosis at L4-L5. Severe intervertebral disc space narrowing at L2-L3. IMPRESSION: 1. No acute intra-abdominal or intrapelvic abnormality identified. 2. Right-sided nephrolithiasis including a large 2.4 cm calculus of the posterior interpolar right kidney. No ureteral calculi or obstructive uropathy . 3. Prior cholecystectomy and ventral abdominal wall herniorrhaphy. 4. Colonic diverticulosis without CT evidence of acute diverticulitis. 5. No evidence of acute appendicitis. Electronically signed by: Manny Soto M.D. 01/24/2018 5:05 PM Dictated Date/Time: 01/24/2018 4:48 PM
--- NOTE | 2018-01-24 17:07 | DIAGNOSTIC IMAGING REPORT ---
LUMBAR SPINE CT CT DOSE: HISTORY: right sided back pain, eval fracture, subluxation TECHNIQUE: Multiaxial CT images of the lumbar spine were performed and reformatted in the sagittal and coronal plane without the use of contrast. A dose lowering technique was utilized adhering to the principles of ALARA. COMPARISON: None. FINDINGS: No fractures. No subluxation. Paraspinal soft tissues are unremarkable. Severe disc space narrowing at L2-L3 with endplate osteophytes. Moderate facet degenerative changes at L4-5 and L5-S1. The visualized sacrum is intact. There is a large stone within the right kidney. IMPRESSION: No fractures within the lumbar spine. Electronically signed by: Varun Gabriel M.D. 01/24/2018 5:06 PM Dictated Date/Time: 01/24/2018 5:03 PM
[2018-01-24] MEDS ORDERED: KETOROLAC TROMETHAMINE 30 MG/ML VIAL IV STA (17:16)
--- NOTE | 2018-01-24 17:25 | EMERGENCY ROOM VISIT NOTE ---
ED Visit Note First contact with patient: 15:58 CHIEF COMPLAINT: Right-sided back pain HISTORY OF PRESENTING ILLNESS: This is a 72-year-old female who presents to the emergency department with complaint of right-sided back pain that started yesterday. Patient states that the pain has been intermittent, she describes it as sharp and stabbing and "grabbing pain," worse with certain movements, better with rest, currently rates as 10/10. She has not tried any medications for her pain. She denies any associated symptoms of fevers or chills, abdominal pain, nausea, vomiting, diarrhea, constipation, blood in the stool, blood in the urine, urinary frequency, dysuria. She denies any history of back problems, and denies any numbness/tingling or weakness in the lower extremities or difficulty walking recently. 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 She states that she has a history of kidney stones on the right side, she thinks that she might be trying to pass a stone, although she states that normally her pain is in her abdomen, not her back. She also denies any chest pain or shortness of breath. REVIEW OF SYSTEMS: A complete 10 point review of systems was reviewed with the patient with pertinent positives and negatives as per history of present illness. All else were negative. PAST MEDICAL HISTORY: Reviewed in chart. SOCIAL HISTORY: Lives at home with her . Denies tobacco use. ALLERGIES: Reviewed in chart. PHYSICAL EXAM: CONSTITUTIONAL: Pleasant and cooperative. No acute distress. Well appearing and well nourished. HEENT: Normocephalic, atraumatic. Pupils equal, round and reactive to light, EOMI. TMs normal. Pharynx normal. NECK: Supple, full active range of motion without discomfort. RESPIRATORY: Clear to auscultation bilaterally with no wheezing, crackles, rhonchi or stridor. Equal expansion bilaterally. CARDIOVASCULAR: Regular rate and rhythm with no murmurs, rubs or gallops. Normal peripheral perfusion. No edema. GASTROINTESTINAL: Soft, right flank tenderness to palpation, abdomen is otherwise nontender, nondistended, obese. No palpable masses or HSM. Bowel sounds present in all quadrants. No CVA tenderness. BACK: No midline tenderness of the lumbar vertebrae. Right-sided paraspinous muscle tenderness to palpation along the lumbar vertebrae. No thoracic tenderness to palpation. MUSCULOSKELETAL: 5/5 strength in all 4 extremities. Sensation intact to light touch. Deep tendon reflexes 2+ and equal in the bilateral lower extremities. Full range of motion of all joints without discomfort. INTEGUMENTARY: No rash or other significant dermatologic conditions noted. NEUROLOGIC: Alert and oriented X 4 with normal affect. Cranial nerves II-XII grossly intact. No focal neurologic deficits noted. Normal speech. Normal gait observed. ED COURSE AND MEDICAL DECISION MAKING: CC: Patient presenting with complaint of right-sided back pain DIFFERENTIAL DIAGNOSIS: Includes, but not limited to musculoskeletal pain, sprain/strain, lumbar radiculopathy, vertebral fracture, degenerative disc disease, ureteral stone, pyelonephritis, UTI, among others. INTERPRETATION OF LABS: No leukocytosis, mild polycythemia, no significant electrolyte abnormalities, slightly impaired renal function (appears consistent with baseline on previous labs), normal liver enzymes. UA appears consistent with contaminant, does show hematuria, although this appears to be present on several previous UAs as well. IMAGING: ABDOMEN AND PELVIS CT WITHOUT CONTRAST CT DOSE: 1532.01 mGy.cm HISTORY: Acute low back pain with history of kidney stones eval stone, pls include recon imaging of L-spine TECHNIQUE: Multiaxial CT images of the abdomen and pelvis were performed without contrast. A dose lowering technique was utilized adhering to the principles of ALARA. COMPARISON STUDY: CT abdomen and pelvis 04/09/2017. FINDINGS: Mild subsegmental dependent bibasilar atelectasis. Evaluation of the lung bases is limited secondary to respiratory motion. No pneumatosis or pneumoperitoneum identified. Imaged inferior cardiac chambers are unremarkable. Coronary arterial disease. Evaluation of the solid abdominal organs is limited without the use of IV contrast. Within the limitations of the study, the liver, spleen, pancreas and adrenal glands are unremarkable. Prior cholecystectomy. Large cyst of the superior pole left kidney measures 0.8 x 5.9 cm. Mild bilateral perinephric stranding. There is a large 2.4 x 2.1 cm calculus of the posterior interpolar right kidney with additional nonobstructing calculi measuring up to 5 mm within the inferior pole right kidney. No ureteral calculi or obstructive uropathy. 12 mm low attenuating lesion of the superior pole right kidney is again seen suggesting cyst. Urinary bladder is unremarkable. Mild nodular contour also left aspect of the uterus, possibly secondary to underlying fibroids. Punctate calcifications of the left uterine fundus noted. No definite adnexal mass lesions identified. Moderate calcification of the aorta without aneurysm. No pathologic adenopathy identified. There is no bowel obstruction or focal bowel wall thickening identified. Moderate stool volume throughout the colon. Extensive colonic diverticulosis without CT evidence of acute diverticulitis. The appendix appears noninflamed. Postoperative changes from prior ventral wall herniorrhaphy without definite recurrent hernia identified. Bones appear intact. Degenerative changes about the pelvis, hips and lumbar spine. Severe facet arthrosis at L4-L5. Severe intervertebral disc space narrowing at L2-L3. IMPRESSION: 1. No acute intra-abdominal or intrapelvic abnormality identified. 2. Right-sided nephrolithiasis including a large 2.4 cm calculus of the posterior interpolar right kidney. No ureteral calculi or obstructive uropathy . 3. Prior cholecystectomy and ventral abdominal wall herniorrhaphy. 4. Colonic diverticulosis without CT evidence of acute diverticulitis. 5. No evidence of acute appendicitis. ----- LUMBAR SPINE CT CT DOSE: HISTORY: right sided back pain, eval fracture, subluxation TECHNIQUE: Multiaxial CT images of the lumbar spine were performed and reformatted in the sagittal and coronal plane without the use of contrast. A dose lowering technique was utilized adhering to the principles of ALARA. COMPARISON: None. FINDINGS: No fractures. No subluxation. Paraspinal soft tissues are unremarkable. Severe disc space narrowing at L2-L3 with endplate osteophytes. Moderate facet degenerative changes at L4-5 and L5-S1. The visualized sacrum is intact. There is a large stone within the right kidney. IMPRESSION: No fractures within the lumbar spine. MEDICATION RECONCILIATION: I attest that I have personally reviewed the patient 's current medication list. INITIAL VITAL SIGNS REVIEW: I reviewed the patient's initial vital signs and interpret them as follows: T: Afebrile; BP: Hypertensive; HR: Within normal limits; RR: Within normal limits; Pulse Ox: Within normal limits on room air. Blood pressure screening: The patient was found to have an elevated blood pressure, which was felt to be situational. SUMMARY: Patient was evaluated at bedside, history and physical exam performed. Patient is alert and oriented, in no acute distress, resting, in the stretcher. Patient complaining of right-sided back/flank pain. On exam, she is tender to palpation along the lumbar paraspinous muscles which is also increased with twisting and bending motions of the lower back. The abdomen is completely nontender with the exception of the far lateral right flank. She does appear to be mildly dehydrated on exam. Orders were placed at bedside for labs, UA, small bolus IV fluids for hydration , CT abdomen/pelvis and lumbar spine to evaluate for flank pain. Patient discussed with Dr. Cavanaugh, who also evaluated the patient and agrees with my assessment and plan. Labs and imaging reviewed as above, no acute abnormalities on imaging, mildly dehydrated on labs. No UTI. Given her tenderness to palpation of the paraspinous muscles reproducing her pain, I suspect the patient may have a lumbar muscle strain with resultant spasm causing her symptoms. The patient was given a dose of IV Toradol for her pain, she does report improved pain with this. Patient reassessed multiple times throughout ED stay, she remained stable, pain is improved, and she is feeling well to go home. Patient was updated on all results and plan for discharge, she was encouraged to follow closely with her primary care provider. Patient was also given strict return precautions should her symptoms worsen, she verbalized understanding. Patient was discharged home in stable condition and ambulatory. Problem List Medical Problems: (1) Abdominal pain Status: Resolved (2) Body Mass Index 40.0-44.9, Adult Status: Chronic (3) Diab Harmony Wo Compl, Type Ii Or Unspec Type, Not Uncntrld Status: Chronic (4) Diabetes Status: Chronic (5) Diverticulitis Status: Resolved (6) Diverticulitis of sigmoid colon Status: Resolved (7) Diverticulosis of sigmoid colon Status: Chronic (8) Headache Status: Resolved (9) Hyperlipidemia Nec/Nos Status: Chronic (10) Hypertension Nos Status: Chronic (11) Hypothyroidism Nos Status: Chronic (12) Kidney stones Status: Resolved (13) Urinary tract infection Status: Resolved (14) Urinary tract infection Status: Resolved (15) Urinary tract infection Status: Resolved (16) Vertigo Status: Resolved (17) Vomiting Status: Resolved Surgical Problems: (1) Cholecystectomy Status: Resolved (2) History of - section Status: Resolved (3) History of ovarian cystectomy Status: Resolved (4) Lens Replacement Nec Status: Resolved Current/Historical Medications Scheduled Amlodipine Besylate (Norvasc), 5 MG PO QAM Aspirin (Aspirin Ec), 81 MG PO QAM Atorvastatin (Lipitor), 40 MG PO DAILY Cholecalciferol (Vitamin D3), 1 CAP PO QAM Cyanocobalamin (Vitamin B-12), 1,000 MCG PO QAM Hydrochlorothiazide (Hctz), 25 MG PO QAM Insulin Glargine (Lantus), 40 UNITS SC QPM Insulin Glargine (Lantus), 35 UNITS SC QAM Levothyroxine Sodium (Levothyroxine Sodium), 1 TAB PO QAM Lisinopril (Zestril), 10 MG PO QAM Metoprolol Tartrate (Lopressor) (Lopressor), 50 MG PO BID Polyethylene Glycol 3350 (Miralax), 17 GM PO DAILY Repaglinide (Prandin), 4 MG PO DIRECTED Repaglinide (Prandin), 6 MG PO QPM Scheduled PRN Nystatin (Topical) (Nystop), 1 DOSE TOP TID PRN for RN Allergies Coded Allergies: Sulfa Antibiotics (Verified Allergy, Mild, "SULFA DRUGS"-HIVES, 01/24/18) Vital Signs Date Time Temp Pulse Resp B/P (MAP) Pulse Ox O2 Delivery O2 Flow Rate FiO2 01/24/18 18:55 72 16 136/74 94 01/24/18 17:49 64 16 128/76 94 Room Air 01/24/18 15:54 36.5 70 17 155/80 93 Room Air Laboratory Results 01/24/18 16:23 Red Blood Count 5.55, Mean Corpuscular Volume 86.7, Mean Corpuscular Hemoglobin 29.0, Mean Corpuscular Hemoglobin Concent 33.5, Mean Platelet Volume 11.6, Neutrophils (%) (Auto) 58.0, Lymphocytes (%) (Auto) 24.2, Monocytes (%) (Auto) 14.1, Eosinophils (%) (Auto) 2.8, Basophils (%) (Auto) 0.5, Neutrophils # (Auto ) 4.84, Lymphocytes # (Auto) 2.01, Monocytes # (Auto) 1.17, Eosinophils # (Auto ) 0.23, Basophils # (Auto) 0.04 01/24/18 16:23 Test 01/24/18 16:23 01/24/18 16:26 White Blood Count 8.32 K/uL (4.8-10.8) Red Blood Count 5.55 M/uL (4.2-5.4) Hemoglobin 16.1 g/dL (12.0-16.0) Hematocrit 48.1 % (37-47) Mean Corpuscular Volume 86.7 fL (80-100) Mean Corpuscular Hemoglobin 29.0 pg (25-34) Mean Corpuscular Hemoglobin Concent 33.5 g/dl (32-36) Platelet Count 213 K/uL (130-400) Mean Platelet Volume 11.6 fL (7.4-10.4) Neutrophils (%) (Auto) 58.0 % Lymphocytes (%) (Auto) 24.2 % Monocytes (%) (Auto) 14.1 % Eosinophils (%) (Auto) 2.8 % Basophils (%) (Auto) 0.5 % Neutrophils # (Auto) 4.84 K/uL (1.4-6.5) Lymphocytes # (Auto) 2.01 K/uL (1.2-3.4) Monocytes # (Auto) 1.17 K/uL (0.11-0.59) Eosinophils # (Auto) 0.23 K/uL (0-0.5) Basophils # (Auto) 0.04 K/uL (0-0.2) RDW Standard Deviation 51.8 fL (36.4-46.3) RDW Coefficient of Variation 16.3 % (11.5-14.5) Immature Granulocyte % (Auto) 0.4 % Immature Granulocyte # (Auto) 0.03 K/uL (0.00-0.02) Anion Gap 7.0 mmol/L (3-11) Est Creatinine Clear Calc Drug Dose 40.9 ml/min Estimated GFR () 41.7 Estimated GFR (Non- 36.0 BUN/Creatinine Ratio 24.2 (10-20) Calcium Level 9.4 mg/dl (8.5-10.1) Total Bilirubin 0.5 mg/dl (0.2-1) Direct Bilirubin mg/dl (0-0.2) Aspartate Amino Transf (AST/SGOT) U/L (15-37) Alanine Aminotransferase (ALT/SGPT) 24 U/L (12-78) Alkaline Phosphatase 80 U/L (45-117) Total Protein 6.8 gm/dl (6.4-8.2) Albumin 3.6 gm/dl (3.4-5.0) Urine Color YELLOW Urine Appearance CLEAR (CLEAR) Urine pH 5.0 (4.5-7.5) Urine Specific Codorus 1.014 (1.000-1.030) Urine Protein NEG (NEG) Urine Glucose (UA) NEG (NEG) Urine Ketones NEG (NEG) Urine Occult Blood 3+ (NEG) Urine Nitrite NEG (NEG) Urine Bilirubin NEG (NEG) Urine Urobilinogen NEG (NEG) Urine Leukocyte Esterase TRACE (NEG) Urine WBC (Auto) 1-5 /hpf (0-5) Urine RBC (Auto) 10-30 /hpf (0-4) Urine Hyaline Casts (Auto) 1-5 /lpf (0-5) Urine Epithelial Cells (Auto) 10-20 /lpf (0-5) Urine Bacteria (Auto) NEG (NEG) Medications Administered Medications (Trade) Dose Ordered Sig/Evans Route Start Time Stop Time Status Last Admin Dose Admin Ketorolac Tromethamine (Toradol Inj) 15 mg NOW STAT IV 01/24/18 17:16 01/24/18 17:17 DC 01/24/18 17:28 15 MG Sodium Chloride 500 ml @ 999 mls/hr Q31M STAT IV 01/24/18 17:37 01/24/18 18:07 DC 01/24/18 17:50 999 MLS/HR Departure Information Impression Primary Impression: Right-sided low back pain without sciatica Dispostion Home / Self-Care Condition GOOD Referrals Dalton Soriano M.D. (PCP) Patient Instructions ED Back Care Tips, ED Low Back Pain Injury, [facility] Additional Instructions You have been treated in the Emergency Department your right-sided back pain. Laboratory results and imaging studies have ruled out any emergent causes for your symptoms which would warrant admission or surgery. For pain control, you can use the following [id number] medicines (if >12 yo): - Regular strength (325mg/tab) Tylenol (acetaminophen) 2 tabs every 4-6 hours as needed. Do not exceed 10 tablets in a 24 hour period. Avoid taking more than 3000 mg of Tylenol per day. This includes any other sources of acetaminophen you may take on a regular basis. - Regular strength (200 mg/tab) Advil (ibuprofen) 1-2 tabs every 4-6 hours as needed. Do not exceed a dose of 2400 mg per day. Alternate heat and ice for comfort. After heat, you may do gentle stretching and massage to the low back. Drink plenty of fluids to stay well hydrated. Follow up with your PCP in the next few days for further management. You may benefit from physical therapy. Please return to the ER if any problems with bowel or bladder function, numbness in your groin, high fevers, severe abdominal pain or worsening back pain, or if loss of feeling/movement of legs or inability to walk. Problem Qualifiers Primary Impression: Right-sided low back pain without sciatica Chronicity: acute Qualified Codes: M54.5 - Low back pain
[2018-01-24 17:29] LABS: ALBUMIN 3.6 gm/dl (3.4-5.0); CALCIUM 9.4 mg/dl (8.5-10.1); CREATININE 1.43 mg/dl (0.60-1.20); TOTAL PROTEIN 6.8 gm/dl (6.4-8.2)
[2018-01-24] MEDS ORDERED: SODIUM CHLORIDE 0.9% 500ML 500 ML IV STA (17:37)
[2018-01-24] MEDS ORDERED: POLY335019 PO (17:57)
[2018-01-24] MEDS ORDERED: INSDGI SC (17:57)
--- NOTE | 2018-01-24 18:36 | EMERGENCY ROOM VISIT NOTE ---
ED Visit Note First contact with patient: 15:58 I have personally evaluated this patient examined her and reviewed the pertinent labs and data. I have discussed the case with the Tatiana Olvera NP and agree with the plan. Please refer to the BRAND MANAGER note. This patient has low back pain. On my exam she is reportedly tender in 1 focal area just right of the central lower lumbar spine. There is no rash or trauma. There has no findings to suggest shingles. She denies dysuria or hematuria. She has a normal neurologic exam. CAT scans of the back and abdomen and do not show any acute obstructive uropathy or acute process. Her urinalysis does not suggest a kidney infection no do her symptoms. I think this is musculoskeletal. She has nothing to suggest cauda equina syndrome. She will use NSAIDs and return if: worsening of symptoms, any new problems or concerns.
[2018-01-24 18:55] VITALS: BP 136/74; PULSE 72; O2SAT 94
== END 2018-01-24 18:56 | disposition home or self-care (01) ==
LOC: C.EDB 15:54
DX: M54.5 Low back pain (principal); E11.9 Type 2 diabetes mellitus without complications; I10 Essential (primary) hypertension; E78.5 Hyperlipidemia, unspecified; E03.9 Hypothyroidism, unspecified; Z79.82 Long term (current) use of aspirin; Z79.4 Long term (current) use of insulin; Z79.899 Other long term (current) drug therapy

== ENCOUNTER → 2018-01-29 | Outpatient (CLI) | payer OTHER, MEDICARE ==
[~2018-01-29] MED LIST changes: +AMOX875T PO; -EZET10TA63 PO; +POLY335019 PO
[2018-01-29 12:38] LABS: HEMATOCRIT 47.1 % (37-47); HEMOGLOBIN 15.8 g/dL (12.0-16.0)
[2018-01-29 13:01] LABS: HEMOGLOBIN A1C 7.4 % (4.5-5.6)
== END | disposition home or self-care (01) ==
LOC: C.LABPVFM 08:00
PROVIDERS: ATTEND Nurse Practitioner Adult Health
DX: E11.29 Type 2 diabetes mellitus with other diabetic kidney complication (principal)

== ENCOUNTER 2018-02-02 02:12 | Emergency (ER) | payer OTHER, MEDICARE ==
[~2018-02-02] VITALS: Ht 160 cm; Wt 110.0 kg
[~2018-02-02 02:12] MED LIST changes: -AMOX875T PO
[2018-02-02 02:17] VITALS: TEMP 36.5; Ht 160 cm; Wt 110.0 kg
[2018-02-02] MEDS ORDERED: SODIUM CHLORIDE 0.9% 1000ML 1,000 ML IV STA (02:28)
--- NOTE | 2018-02-02 02:30 | EMERGENCY ROOM VISIT NOTE ---
History Report prepared by Faith: Juanpablo Dang Under the Supervision of: Dr. Lilly Mock M.D. First contact with patient: 02:22 Chief Complaint: FLANK PAIN Stated Complaint: SIDE PAIN A LONG RIBS History of Present Illness The patient is a 72 year old female who presents to the Emergency Room with complaints of constant right-sided abdominal pain beginning at 1600 tonight. The patient states that she has a history of kidney stones but notes that her current symptoms feel different than when she had her kidney stones. She notes that her pain is located on her right side and does not move. She denies any fever, hematuria, and diarrhea. She reports that she was in the emergency department last week for back pain and back spasms. The patient states that she also has a history of diabetes and diverticulitis on the left side. She notes that she has had several small bowel movements today. She rates her pain as an 8 /10. Source of History: patient Onset: 1600 tonight Position: abdomen (right-sided) Symptom Intensity: 8/10 Timing: constant Associated Symptoms: No fevers, No diarrhea Note: The patient also denies any hematuria. Review of Systems See HPI for pertinent positives & negatives. A total of 10 systems reviewed and were otherwise negative. 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 (15) Perforated sigmoid colon (16) Perforation of sigmoid colon (17) Resistant hypertension (18) Urinary tract infection (19) Urinary tract infection (20) Urinary tract infection (21) Ventral hernia (22) Vertigo (23) Vomiting Surgical Problems: (1) Cholecystectomy (2) History of - section (3) History of ovarian cystectomy (4) Hx of cholecystectomy (5) Lens Replacement Nec (6) S/P exploratory laparotomy Family History Diabetes mellitus FH: hyperlipidemia Gallbladder disease Heart disease Hypertension Kidney disease Kidney stones Stroke Social History Smoking Status: Never Smoker Alcohol Use: none Drug Use: none Marital Status: Housing Status: lives with family Occupation Status: retired Current/Historical Medications Scheduled Amlodipine Besylate (Norvasc), 5 MG PO QAM Amoxicillin & Pot Clavulanate (Augmentin 875-125 mg), 875 MG PO BID Aspirin (Aspirin Ec), 81 MG PO QAM Atorvastatin (Lipitor), 40 MG PO DAILY Cholecalciferol (Vitamin D3), 1 CAP PO QAM Cyanocobalamin (Vitamin B-12), 1,000 MCG PO QAM Hydrochlorothiazide (Hctz), 25 MG PO QAM Insulin Glargine (Lantus), 40 UNITS SC QPM Insulin Glargine (Lantus), 35 UNITS SC QAM Levothyroxine Sodium (Levothyroxine Sodium), 1 TAB PO QAM Lisinopril (Zestril), 10 MG PO QAM Metoprolol Tartrate (Lopressor) (Lopressor), 50 MG PO BID Polyethylene Glycol 3350 (Miralax), 17 GM PO DAILY Repaglinide (Prandin), 4 MG PO DIRECTED Repaglinide (Prandin), 6 MG PO QPM Scheduled PRN Nystatin (Topical) (Nystop), 1 DOSE TOP TID PRN for RN Allergies Coded Allergies: Sulfa Antibiotics (Verified Allergy, Mild, "SULFA DRUGS"-HIVES, 02/02/18) Physical Exam Vital Signs Date Time Temp Pulse Resp B/P (MAP) Pulse Ox O2 Delivery O2 Flow Rate FiO2 02/02/18 06:03 73 18 123/78 96 Room Air 02/02/18 05:49 119 18 95/51 96 Room Air 02/02/18 04:38 60 18 153/81 95 Room Air 02/02/18 02:17 36.5 72 18 163/90 94 Room Air Physical Exam Vital signs reviewed. General: Well-appearing obese female, in no significant distress. HEENT: No scleral icterus, PERRLA, neck supple. Atraumatic. Cardiovascular: Regular rate and rhythm, no extra sounds. Pulmonary: Clear to auscultation bilaterally, normal work of breathing. Abdomen: Soft, nondistended, positive bowel sounds, tender to palpation in RLQ. Musculoskeletal: Atraumatic, no peripheral edema. No CVA tenderness. Neurologic: Patient awake alert and oriented x 3 Skin: Warm, dry, no rash Medical Decision & Procedures ER Provider Diagnostic Interpretation: Radiology results as stated below per my review and radiologist interpretation: CT ABDOMEN & PELVIS With Contrast: Lower thorax which is dependent atelectasis. Gallbladder is surgically absent. Probably cyst within the right hepatic lobe. Spleen, pancreas, and adrenal glands are unremarkable. Cysts within both kidneys. No obstructive calculus with the right kidney. No hydronephrosis. Uterus and adnexa are unremarkable. Appendix is unremarkable. Non-inflamed colon diverticulosis. Evidence prior hernia repair with mesh seen with lower anterior pelvic wall. No acute osseous abnormality. Radiologist: Cas Vega MD. Laboratory Results 02/02/18 02:49 Red Blood Count 5.38, Mean Corpuscular Volume 86.2, Mean Corpuscular Hemoglobin 29.7, Mean Corpuscular Hemoglobin Concent 34.5, Mean Platelet Volume 11.3, Neutrophils (%) (Auto) 61.3, Lymphocytes (%) (Auto) 21.8, Monocytes (%) (Auto) 12.8, Eosinophils (%) (Auto) 3.1, Basophils (%) (Auto) 0.4, Neutrophils # (Auto ) 4.98, Lymphocytes # (Auto) 1.77, Monocytes # (Auto) 1.04, Eosinophils # (Auto ) 0.25, Basophils # (Auto) 0.03 02/02/18 02:49 Test 02/02/18 02:43 02/02/18 02:49 Urine Color YELLOW Urine Appearance CLOUDY (CLEAR) Urine pH 5.0 (4.5-7.5) Urine Specific [place] 1.018 (1.000-1.030) Urine Protein NEG (NEG) Urine Glucose (UA) NEG (NEG) Urine Ketones NEG (NEG) Urine Occult Blood TRACE (NEG) Urine Nitrite NEG (NEG) Urine Bilirubin NEG (NEG) Urine Urobilinogen NEG (NEG) Urine Leukocyte Esterase SMALL (NEG) Urine WBC (Auto) 5-10 /hpf (0-5) Urine RBC (Auto) 0-4 /hpf (0-4) Urine Hyaline Casts (Auto) 1-5 /lpf (0-5) Urine Epithelial Cells (Auto) 20-30 /lpf (0-5) Urine Bacteria (Auto) NEG (NEG) White Blood Count 8.12 K/uL (4.8-10.8) Red Blood Count 5.38 M/uL (4.2-5.4) Hemoglobin 16.0 g/dL (12.0-16.0) Hematocrit 46.4 % (37-47) Mean Corpuscular Volume 86.2 fL (80-100) Mean Corpuscular Hemoglobin 29.7 pg (25-34) Mean Corpuscular Hemoglobin Concent 34.5 g/dl (32-36) Platelet Count 186 K/uL (130-400) Mean Platelet Volume 11.3 fL (7.4-10.4) Neutrophils (%) (Auto) 61.3 % Lymphocytes (%) (Auto) 21.8 % Monocytes (%) (Auto) 12.8 % Eosinophils (%) (Auto) 3.1 % Basophils (%) (Auto) 0.4 % Neutrophils # (Auto) 4.98 K/uL (1.4-6.5) Lymphocytes # (Auto) 1.77 K/uL (1.2-3.4) Monocytes # (Auto) 1.04 K/uL (0.11-0.59) Eosinophils # (Auto) 0.25 K/uL (0-0.5) Basophils # (Auto) 0.03 K/uL (0-0.2) RDW Standard Deviation 51.0 fL (36.4-46.3) RDW Coefficient of Variation 16.2 % (11.5-14.5) Immature Granulocyte % (Auto) 0.6 % Immature Granulocyte # (Auto) 0.05 K/uL (0.00-0.02) Anion Gap 9.0 mmol/L (3-11) Est Creatinine Clear Calc Drug Dose 45.2 ml/min Estimated GFR () 46.8 Estimated GFR (Non- 40.4 BUN/Creatinine Ratio 25.2 (10-20) Calcium Level 9.5 mg/dl (8.5-10.1) Magnesium Level 2.0 mg/dl (1.8-2.4) Total Bilirubin 0.5 mg/dl (0.2-1) Direct Bilirubin < 0.1 mg/dl (0-0.2) Aspartate Amino Transf (AST/SGOT) 14 U/L (15-37) Alanine Aminotransferase (ALT/SGPT) 24 U/L (12-78) Alkaline Phosphatase 80 U/L (45-117) Total Protein 7.1 gm/dl (6.4-8.2) Albumin 3.4 gm/dl (3.4-5.0) Lipase 297 U/L (73-393) Laboratory results per my review. Medications Administered Medications (Trade) Dose Ordered Sig/Evans Route Start Time Stop Time Status Last Admin Dose Admin Sodium Chloride 1,000 ml @ 125 mls/hr Q8H STAT IV 02/02/18 02:28 02/02/18 06:28 DC 02/02/18 02:28 125 MLS/HR ED Course 0224: Past medical records reviewed. The patient was evaluated in room B5. A complete history and physical examination was performed. 0614: Upon reevaluation, the patient appeared to have improvement of her symptoms. I discussed findings with her. She verbalized agreement of the treatment plan. The patient was discharged home. Medical Decision Differential diagnosis: Etiologies such as appendicitis, diverticulitis, PUD, biliary pathology, UTI, pancreatitis, obstruction, mesenteric ischemia, aortic pathology, infections, inflammatory bowel disease, renal colic, as well as others were entertained. This pt was evaluated and appeared to be in no distress. IV access was obtained and lab work was drawn. Pt was hydrated with NSS. UA is negative. Pt was reevaluated and c/o pain. She declined pain meds "until (she) knows what the problem is." CT abd/pelvis was performed and negative for acute findings. She is found to have diverticulosis. After d/w pt, she feels uncomfortable and believes this is diverticulitis. She was given a Rx for Augmentin 875 mg BID for 7 days to begin tomorrow is symptoms do not improve. She will f/u with PCP this week for reevaluation. She will return to the ED for worsening of symptoms or any medical concerns. Blood Pressure Screening Patient's blood pressure: Normal blood pressure Blood pressure disposition: Did not require urgent referral Impression Primary Impression: Right lower quadrant abdominal pain Scribe Attestation The scribe's documentation has been prepared under my direction and personally reviewed by me in its entirety. I confirm that the note above accurately reflects all work, treatment, procedures, and medical decision making performed by me. Departure Information Dispostion Home / Self-Care Prescriptions Amoxicillin & Pot Clavulanate (Augmentin 875-125 mg) 1 Tab Tab 875 MG PO BID for 7 Days, #14 TAB Prov: Lilly Mock M.D. 02/02/18 Referrals Dalton Soriano M.D. (PCP) Forms HOME CARE DOCUMENTATION FORM, IMPORTANT VISIT INFORMATION Patient Instructions My [facility] Additional Instructions Diagnosis: Right lower quadrant abdominal pain Tylenol 650 mg every 6 hours as needed for pain. Augmentin 875 mg twice daily for 7 days. Follow-up with your physician this week for reevaluation. Drink plenty of clear fluids. Return to the emergency department for worsening of symptoms or any medical concerns.
[2018-02-02 03:08] LABS: BASO % 0.4 %; BASO ABS # 0.03 K/uL (0-0.2); EOS % 3.1 %; EOS ABS # 0.25 K/uL (0-0.5); HEMATOCRIT 46.4 % (37-47); IG# 0.05 K/uL (0.00-0.02); LYMPH % 21.8 %; LYMPH ABS # 1.77 K/uL (1.2-3.4); MEAN CELL VOLUME 86.2 fL (80-100); MEAN CORPUSCULAR HEMOGLOBIN 29.7 pg (25-34); MEAN CORPUSCULAR HGB CONC 34.5 g/dl (32-36); MEAN PLATELET VOLUME 11.3 fL (7.4-10.4); MONO % 12.8 %; MONO ABS # 1.04 K/uL (0.11-0.59); NEUT % 61.3 %; NEUT ABS # 4.98 K/uL (1.4-6.5); PLATELET COUNT 186 K/uL (130-400); RED CELL DISTRIBUTION WIDTH CV 16.2 % (11.5-14.5); WHITE BLOOD COUNT 8.12 K/uL (4.8-10.8)
[2018-02-02 03:55] LABS: BLOOD UREA NITROGEN 33 mg/dl (7-18); GLUCOSE 132 mg/dl (70-99)
[2018-02-02 03:56] LABS: ALBUMIN 3.4 gm/dl (3.4-5.0); ALKALINE PHOSPHATASE 80 U/L (45-117); ALT/SGPT 24 U/L (12-78); AST/SGOT 14 U/L (15-37); CALCIUM 9.5 mg/dl (8.5-10.1); CARBON DIOXIDE 24 mmol/L (21-32); LIPASE 297 U/L (73-393); SODIUM 139 mmol/L (136-145); TOTAL PROTEIN 7.1 gm/dl (6.4-8.2)
[2018-02-02] MEDS ORDERED: OPTIRAY 320 IV PRN (04:45)
[2018-02-02 06:03] VITALS: BP 123/78; PULSE 73; O2SAT 96
[2018-02-02] MEDS ORDERED: AMOX875T PO (06:12)
--- NOTE | 2018-02-02 06:34 | DIAGNOSTIC IMAGING REPORT ---
CT ABD/PELVIS IV CONTRAST ONLY CLINICAL HISTORY: Right lower quadrant abdominal pain COMPARISON STUDY: 01/24/2018 TECHNIQUE: Following the IV administration of 93 mL of Optiray-320, CT scan of the abdomen and pelvis was performed from the lung bases to the proximal femurs. Images are reviewed in the axial, sagittal, and coronal planes. IV contrast was administered without complication. A dose lowering technique was utilized adhering to the principles of ALARA. CT DOSE: 1505.82 mGy.cm FINDINGS: Lower chest: There are mild dependent atelectatic changes present. Liver: There is a nonspecific 7 mm hypodensity within the right hepatic lobe Gallbladder: Surgically absent Spleen: Normal in size and attenuation. Pancreas: There is a 7 mm cystic lesion within the pancreatic tail. 12 month follow-up is recommended. Adrenal glands: Unremarkable. Kidneys: There are bilateral renal cysts, the largest of which is located on the left measuring 6 cm. There is a fragmented 2.6 cm right renal calculus. There is no hydronephrosis. No ureteral or bladder calculi are visualized. Bowel: There are no transition zones indicate bowel obstruction. The appendix appears normal. There is colonic diverticulosis. There are no acute peridiverticular inflammatory changes. Peritoneum: There is no free air. There is no ascites. There are postsurgical changes of anterior abdominal wall mesh hernia repair. Vasculature: The abdominal aorta is normal in course and caliber. Adenopathy: None. Pelvic viscera: The bladder, and pelvic viscera are unremarkable. Skeletal structures: No destructive osseous lesions are seen. IMPRESSION: 1. Right-sided nephrolithiasis. No ureteral or bladder calculi identified. No evidence of hydronephrosis 2. Bilateral renal cysts 3. No evidence of bowel obstruction. No evidence of free air 4. Normal appendix 5. Diverticulosis. No evidence of acute diverticulitis 6. 7 mm cystic lesion within the pancreatic tail. A 12 month follow-up MRI study is recommended. Electronically signed by: Rogelio Álvarez M.D. 02/02/2018 6:32 AM Dictated Date/Time: 02/02/2018 6:27 AM
== END 2018-02-02 06:02 | disposition home or self-care (01) ==
LOC: C.EDB 02:13
DX: R10.31 Right lower quadrant pain (principal); E11.9 Type 2 diabetes mellitus without complications; E78.5 Hyperlipidemia, unspecified; I10 Essential (primary) hypertension; E03.9 Hypothyroidism, unspecified; Z79.4 Long term (current) use of insulin; Z79.82 Long term (current) use of aspirin; Z79.899 Other long term (current) drug therapy; Z88.1 Allergy status to other antibiotic agents; Z88.2 Allergy status to sulfonamides; Z87.19 Personal history of other diseases of the digestive system; Z87.440 Personal history of urinary (tract) infections; Z87.442 Personal history of urinary calculi; Z82.0 Family history of epilepsy and other diseases of the nervous system; Z82.49 Family history of ischemic heart disease and other diseases of the circulatory system; Z83.3 Family history of diabetes mellitus; Z83.49 Family history of other endocrine, nutritional and metabolic diseases; Z83.79 Family history of other diseases of the digestive system; Z84.1 Family history of disorders of kidney and ureter

== ENCOUNTER → 2018-02-19 | Outpatient (CLI) | payer OTHER, MEDICARE ==
[2018-02-19 13:51] LABS: BLOOD UREA NITROGEN 31 mg/dl (7-18); CALCIUM 9.8 mg/dl (8.5-10.1); CARBON DIOXIDE 27 mmol/L (21-32); CREATININE 1.18 mg/dl (0.60-1.20); GLUCOSE 125 mg/dl (70-99); POTASSIUM 3.8 mmol/L (3.5-5.1); SODIUM 138 mmol/L (136-145)
== END | disposition home or self-care (01) ==
LOC: C.LAB1850 12:21
PROVIDERS: ATTEND Nurse Practitioner Adult Health
DX: E03.9 Hypothyroidism, unspecified (principal); I10 Essential (primary) hypertension; E11.29 Type 2 diabetes mellitus with other diabetic kidney complication; E11.21 Type 2 diabetes mellitus with diabetic nephropathy

== ENCOUNTER 2018-03-25 13:02 | Emergency (ER) | payer OTHER, MEDICARE ==
[~2018-03-25] VITALS: Ht 160 cm; Wt 103.0 kg
[2018-03-25 13:02] VITALS: TEMP 36.8; Ht 160 cm; Wt 103.0 kg
[2018-03-25] MEDS ORDERED: DIPHTHERIA/TETANUS/PERTUSSIS 0.5 ML SYR/VIAL IM. ONE (13:30)
[2018-03-25] MEDS ORDERED: LIDOCAINE 1% BUFFERED INJ 5 ML VIAL INFIL ONE (13:30)
[2018-03-25] MEDS ORDERED: CEPH500C PO (14:11)
--- NOTE | 2018-03-25 14:21 | EMERGENCY ROOM VISIT NOTE ---
ED Visit Note First contact with patient: 13:07 I have personally evaluated this patient examined her and reviewed the pertinent labs and data. I have discussed the case with Johnathon Shields, the physician assistant center director and agree with the plan. Please refer to the PA note. This patient comes in after having a large laceration in her left hand on the dorsal aspect. She injured it when driving a tractor and got brushed up against a tree. On my exam, she denies any numbness or weakness. We did update her tetanus booster and will start on antibiotics. Hamilton has close the laceration. Please refer to his note.
[2018-03-25] MEDS ORDERED: CEPHALEXIN MONOHYDRATE 250 MG CAP ONE (14:28)
[2018-03-25] MEDS ORDERED: CEPHALEXIN 500MG HOME PACK 1 EA BTL ONE (14:33)
[2018-03-25 14:45] VITALS: BP 148/67; PULSE 89; O2SAT 98
[2018-03-25] MEDS ORDERED: CEPHALEXIN 500MG HOME PACK 1 EA BTL PO ONE (14:45)
--- NOTE | 2018-03-25 17:19 | EMERGENCY ROOM VISIT NOTE ---
ED Visit Note First contact with patient: 13:07 Chief complaint: Left hand laceration HPI: This 73-year-old white female presents for evaluation of a laceration on the dorsum of her left hand. The patient was outside mowing today using her riding tractor. She got close to a lilac arzate. She was attempting to push the branches out of the way. 1 of the branches got caught on her mower deck lever. It snapped back and struck her in the hand, creating a large skin flap on the dorsum of her hand. She had some minor pain but excessive bleeding. EMS was called. Bleeding was controlled with pressure. She denies any numbness, tingling, or loss of motion. No other complaints. Tetanus is believed to be out-of-date. Pain is 2/10. Right-hand dominant. Supplemental sheet was not completed. Previous surgeries: , cholecystectomy cataract surgery Medical history: Frequent UTIs, elevated lipids, diabetes, obesity, hypertension , hypothyroidism, kidney stones, and diverticulitis Current Medications: Reviewed and filed in patient's chart Allergies: Sulfa antibiotics Tetanus: Greater than 10 years Family History: Noncontributory. Parents are . Social History: Patient is retired. Lives with her family. No tobacco use. REVIEW OF SYSTEM: HEENT: No dizziness, visual problems, hearing loss, or tinnitus. There is no difficulty swallowing and no oral lesions are present. PULMONARY: No cough, shortness of breath, sputum production or hemoptysis. CARDIOVASCULAR: No chest pain, palpitations, shortness of breath or peripheral edema. GASTROINTESTINAL: No diarrhea, constipation, nausea, vomiting, or abdominal pain. GENITOURINARY: No dysuria, frequency, urgency or nocturia. NEUROLOGIC: No weakness, muscle tenderness, epilepsy or history of neurological problems. MUSCULOSKELETAL: No history of joint tenderness/swelling. Positive history of arthritis and arthralgias. SKIN: No rashes or lesions. PSYCHIATRIC: No history of depression or mental illness. ENDOCRINE: No history of abnormal hair growth. Positive diabetes and hypothyroidism. Physical Exam: Vitals: Afebrile. Reviewed and filed in patient's chart General: Well-developed, well-nourished, elderly white female, in no acute distress. Obvious discomfort. She is sitting on the bed. Alert and oriented. Skin: Warm and dry with fair turgor. No rashes. Developing ecchymosis and edema on the dorsum of the left hand. No erythema. The patient is not diaphoretic. No abrasions. The patient has a 8 cm flap laceration present on the dorsum of her left hand. She essentially did a partial-thickness degloving in a V-shaped pattern. Subcutaneous fat is exposed. No tendons are exposed. There is debris within the wound. Musculoskeletal: Patient is intact motor function to all of her digits. She has intact flexion and extension for each of the fingers and thumb. She has intact flexion and extension of the wrist as well. Supination and pronation are also intact. Neurologic: Gross sensation is intact across the hand and digits by soft touch. Peripheral pulses are 2+. Capillary refill is equal for each of the fingers. Impression: Left hand 8 cm dorsal flap laceration Procedure: Informed oral consent was obtained for repair. Left hand was prepped with Betadine and draped with a sterile towel. A disposable tourniquet was inflated to 180 on her left forearm and was left in place for approximately 15 minutes. Laceration was anesthetized using 10 mL's 1% plain buffered lidocaine in a direct infiltration. Thorough inspection was performed. All visible foreign material was removed using forceps. Wound was irrigated copiously using Betadine diluted with normal sterile saline under jet spray lavage. Wound was closed using 4-0 nylon 22. Excellent wound edge approximation was achieved. Hemostasis was achieved. Pressure dressing was applied. Plan: Patient was educated regarding today's findings. Conservative care measures were discussed. Leave the pressure dressing in place for 24 hours. Cleanse the wound daily with soap and water and reapply a small amount of bacitracin. Ice and elevate intermittently as needed for discomfort. Tylenol every 6 hours as needed for pain. Wound care handout was provided. Sutures out in 12 days. She may shower. Avoid soaking or swimming for two weeks. Return to the ER for any acute changes or signs of infection. She should have the wound rechecked again this week. She was advised to avoid getting the wound wet or dirty. She should not mow grass for the next week. Due to the size of the wound, she was placed on prophylactic dose of Keflex 500 mg 3 times daily 1 week. Tetanus was also updated using Adacel 0.5 mL Im. Patient was seen in conjunction with Dr. Cavanaugh, who also evaluated the patient and concurred with today's diagnosis and treatment plan. Problem List Medical Problems: (1) Abdominal pain Status: Resolved (2) Body Mass Index 40.0-44.9, Adult Status: Chronic (3) Diab Harmony Wo Compl, Type Ii Or Unspec Type, Not Uncntrld Status: Chronic (4) Diabetes Status: Chronic (5) Diverticulitis Status: Resolved (6) Diverticulitis of sigmoid colon Status: Resolved (7) Diverticulosis of sigmoid colon Status: Chronic (8) Headache Status: Resolved (9) Hyperlipidemia Nec/Nos Status: Chronic (10) Hypertension Nos Status: Chronic (11) Hypothyroidism Nos Status: Chronic (12) Kidney stones Status: Resolved (13) Urinary tract infection Status: Resolved (14) Urinary tract infection Status: Resolved (15) Urinary tract infection Status: Resolved (16) Vertigo Status: Resolved (17) Vomiting Status: Resolved Surgical Problems: (1) Cholecystectomy Status: Resolved (2) History of - section Status: Resolved (3) History of ovarian cystectomy Status: Resolved (4) Lens Replacement Nec Status: Resolved Current/Historical Medications Scheduled Amlodipine Besylate (Norvasc), 5 MG PO QAM Aspirin (Aspirin Ec), 81 MG PO QAM Atorvastatin (Lipitor), 40 MG PO DAILY Cephalexin Monohydrate (Keflex), 500 MG PO TID Cholecalciferol (Vitamin D3), 1 CAP PO QAM Cyanocobalamin (Vitamin B-12), 1,000 MCG PO QAM Hydrochlorothiazide (Hctz), 25 MG PO QAM Insulin Glargine (Lantus), 40 UNITS SC QPM Insulin Glargine (Lantus), 35 UNITS SC QAM Levothyroxine Sodium (Levothyroxine Sodium), 1 TAB PO QAM Lisinopril (Zestril), 10 MG PO QAM Metoprolol Tartrate (Lopressor) (Lopressor), 50 MG PO BID Polyethylene Glycol 3350 (Miralax), 17 GM PO DAILY Repaglinide (Prandin), 4 MG PO DIRECTED Repaglinide (Prandin), 6 MG PO QPM Scheduled PRN Nystatin (Topical) (Nystop), 1 DOSE TOP TID PRN for RN Allergies Coded Allergies: Sulfa Antibiotics (Verified Allergy, Mild, "SULFA DRUGS"-HIVES, 02/02/18) Vital Signs Date Time Temp Pulse Resp B/P (MAP) Pulse Ox O2 Delivery O2 Flow Rate FiO2 03/25/18 14:45 89 20 148/67 98 03/25/18 13:02 36.8 92 20 152/82 96 Room Air Medications Administered Medications (Trade) Dose Ordered Sig/Evans Route Start Time Stop Time Status Last Admin Dose Admin Diphtheria/ Pertussis/Tetanus Vacc (Adacel Inj) 0.5 ml ONCE ONCE IM. 03/25/18 13:30 03/25/18 13:31 DC 03/25/18 14:05 0.5 ML Cephalexin Monohydrate (Keflex 500MG Home Pack) 1 homepack NOW ONCE PO 03/25/18 14:45 03/25/18 14:46 DC 03/25/18 14:35 1 HOMEPACK Departure Information Prescriptions Cephalexin Monohydrate (Keflex) 500 Mg Cap 500 MG PO TID, #21 CAP Prov: Johnathon Shields,P.A. 03/25/18 Referrals Dalton Soriano M.D. (PCP) Patient Instructions My [facility]
--- NOTE | 2018-03-27 12:45 | EDITING REQUIRED CODING QUERY ---
CODING QUERY To promote full compliance with coding requirements relating to patient care, provider participation is requested in all cases of engineer byproduct uncertainty. Please assist us with the question(s) below: Coding Question(s): FINAL IMPRESSION IS NO LISTED ON ED REPORT. PLEASE ADD FINAL IMPRESSION. Left hand 8cm flap laceration is clearly listed in the dictation. Physician's Response(s): Left hand laceration, 8 cm Please see above. Thank you Gifty Espinal Principal Diagnosis: "_that condition established after study, to be chiefly responsible for occasioning the admission of the patient to the hospital for care." Co-Existing Principal Diagnosis: "_when two or more diagnoses equally meet the criteria for principal diagnosis as determined by the circumstances of admission, diagnostic work up, and/or therapy provided, and the Alphabetic Index, Tabular List, or another coding guideline does not provide sequencing direction, any one of the diagnoses may be sequenced first." "When the physician has documented what appears to be a current diagnosis in the body of the record, but has not included the diagnosis in the final diagnostic statement, the physician should be asked whether the diagnosis should be added." (Source Coding [facility] 2 QTR90. p3-4)
== END 2018-03-25 14:45 | disposition home or self-care (01) ==
LOC: EDBD 13:02 → C.EDC 13:03
DX: S61.422A Laceration with foreign body of left hand, initial encounter (principal); W45.8XXA Other foreign body or object entering through skin, initial encounter; Y92.017 Garden or yard in single-family (private) house as the place of occurrence of the external cause; Y93.H9 Activity, other involving exterior property and land maintenance, building and construction; E78.5 Hyperlipidemia, unspecified; I10 Essential (primary) hypertension; E11.9 Type 2 diabetes mellitus without complications; E03.9 Hypothyroidism, unspecified; Z88.2 Allergy status to sulfonamides; Z23 Encounter for immunization; Z79.82 Long term (current) use of aspirin; Z79.4 Long term (current) use of insulin; Z79.899 Other long term (current) drug therapy

== ENCOUNTER → 2018-06-05 | Outpatient (CLI) | payer OTHER, MEDICARE ==
[~2018-06-05] MED LIST changes: +CEPH500C PO
[2018-06-05 13:43] LABS: HEMOGLOBIN A1C 7.7 % (4.5-5.6)
== END | disposition home or self-care (01) ==
LOC: C.LABPVFM 09:26
PROVIDERS: ATTEND Nurse Practitioner Adult Health
DX: E03.9 Hypothyroidism, unspecified (principal); E11.29 Type 2 diabetes mellitus with other diabetic kidney complication; Z79.4 Long term (current) use of insulin

== ENCOUNTER → 2018-06-08 | Outpatient (CLI) | payer OTHER, MEDICARE ==
--- NOTE | 2018-06-08 09:13 | DIAGNOSTIC IMAGING REPORT ---
ABDOMEN ULTRASOUND FOR HERNIA CLINICAL HISTORY: R10.9 Abdominal [id number] Abdominal wall bulge COMPARISON STUDY: Abdomen and pelvis CT 3 02/02/2018. FINDINGS: Real-time sonographic imaging of the mid anterior abdominal wall was performed with medical customer service representative images submitted. No defect within the abdominal wall to suggest a hernia. No fluid collections or masses within the abdominal wall. IMPRESSION: No sonographic evidence for an abdominal wall hernia. Electronically signed by: Varun Gabriel M.D. 06/08/2018 9:12 AM Dictated Date/Time: 06/08/2018 9:10 AM
== END | disposition home or self-care (01) ==
LOC: C.ULTR 07:35
PROVIDERS: ATTEND Family Medicine
DX: R10.9 Unspecified abdominal pain (principal); R19.00 Intra-abdominal and pelvic swelling, mass and lump, unspecified site

== ENCOUNTER 2020-05-19 13:30 | Inpatient (IN) ==
--- NOTE | 2020-05-19 14:23 | Emergency Department Note ---
Impression & Plan Pulmonary embolism on right, Stage III chronic kidney disease, Adenocarcinoma of pancreas, Shortness of breath ED Provider Note NAME: LOVE WILL AGE: 75 SEX: F ARRIVES VIA: Walk-In INFORMANT: Patient, ED PROVIDER(S): Dayton Johnson MD CHIEF COMPLAINT: SOB PLAN: Disposition: Admit MEDICAL DECISION MAKING: The patient is a pleasant sensorineural woman with a past medical history of pancreatic cancer who is status post resection including splenectomy on Gemcitabine, uncontrolled IDDM 2, CKD, hypertension, hypothyroidism presents emergency department for progressive shortness of breath over the past 2 weeks with last chemotherapy 1 week ago. The patient denies any fevers, chills, cough, congestion, nausea, vomiting, diarrhea, urinary symptoms. She reports tightness within her chest centrally. On arrival the patient is in no acute distress, afebrile with oxygen saturation low 90s on room air. EKG is normal sinus without overt acute ischemia. CXR with question of vascular congestion. WBC, H/H, platelets wnl. Cr. 1.3 similar to prior range of values. Chemistry without acidosis. AST 78, non specific. LFTs and electrolytes unremarkable. Troponion negative. BNP wnl. Lipase is not elevated. CTA demonstrates extensive right sided PE. Patient denies any h/o of GiB or bleeding otherwise. Will initiated treatment with Lovenox. Patient agrees with plan for admission. Case was discussed with Dr. Irizarry, [facility] hospitalist, who will evaluate the patient for admission. Triage Nursing notes reviewed and agree them. Additional history obtained from [facility] records Prior medical records reviewed Vital Signs: reviewed and remarkable for no significant abnormalities Differential diagnosis: Reactive airway disease, pneumonia, pneumothorax, COPD, CHF, infections, cardiac ischemia, pulmonary embolism, musculoskeletal, gastrointestinal, as well as other pathologies. ER treatment provided: See below. Diagnostics interpreted by me: ECG: Normal sinus rhythm, 77 bpm, no ectopy, rightward axis deviation. No overt ST elevation or depression, QTC 459, QRS 84. Cardiac Monitoring: An order for continuous cardiac monitoring was placed and demonstrated normal sinus rhythm, 77 bpm, no ectopy. Laboratory studies: See below Imaging studies: SINGLE VIEW CHEST CLINICAL HISTORY: Atypical chest pain. FINDINGS: An AP, portable, upright chest radiograph is compared to chest x-ray and chest CT dated 12/25/2019. The examination is degraded by portable technique and patient rotation. The heart is enlarged noting atherosclerotic calcification of the thoracic aorta. There is pulmonary vascular congestion. Bibasilar opacities likely represent atelectasis. No large pleural effusion or pneu mothorax is seen. The skeletal structures are osteopenic. The bony thorax is grossly intact. IMPRESSION: 1. Cardiomegaly with pulmonary vascular congestion. 2. Bibasilar opacities likely represent atelectasis. Clinical correlation will be required. - CT ANGIOGRAM OF THE CHEST CLINICAL HISTORY: Dyspnea. Atypical chest pain. COMPARISON STUDY: Chest x-ray dated 05/19/2020. Chest CT scans dated 12/25/2019 and 03/16/2011. Abdominal CT dated 12/25/2019. TECHNIQUE: Following the IV administration of 118 cc of Optiray 320, CT angiogram of the chest was performed from the upper abdomen to the thoracic inlet utilizing the pulmonary embolus protocol. Images are reviewed in the axial, sagittal, and coronal planes. 3-D MIPS images are created and assessed. IV contrast was administered without complication. A dose lowering technique was utilized adhering to the principles of ALARA. CT DOSE: 1097.82 mGy.cm FINDINGS: Thyroid: Imaged portions of the thyroid gland are normal in size and attenuation. Thoracic aorta: There is atherosclerotic calcification of the thoracic aorta, which is normal in caliber and demonstrates standard 3-vessel arch anatomy. No dissection is seen. Pulmonary vasculature: The pulmonary trunk is normal in caliber. There is pulmonary embolus within the distal right main pulmonary artery. Pulmonary embolus is seen within the right upper, middle, and lower lobe pulmonary arteries extending into segmental and subsegmental branches. Heart: The heart is normal in size and without pericardial effusion. The coronary arteries are densely calcified. Lungs and pleural spaces: Evaluation of the lung parenchyma is degraded by motion artifact. Atelectasis is noted at the lung bases. There is no airspace consolidation typical for pneumonia. There is trace left pleural effusion. Mild diffuse intraoperative septal thickening is seen throughout both lungs. The trachea and central airways are clear. There is diffuse peribronchial thickening. There is abnormal right perihilar soft tissue. Mediastinum: Enlarged subcarinal node on image #132 measures 2.4 cm in short axis. Additional subcentimeter mediastinal nodes are noted. Beata: Question right hilar adenopathy. No left hilar adenopathy is seen. Axillae: There is no axillary lymphadenopathy. Upper abdomen: A 5 cm cyst is partially visualized in the upper pole of the left kidney. There is a small hiatal hernia. A 2.0 cm residual collection or tract is partially imaged in the left upper quadrant on image #11. There is an indeterminant 1.8 cm subcapsular hypodensity in the right hepatic lobe seen on image #33. Foci of low-attenuation are also suggested in the left lobe and caudate. These are new from 12/25/2019. Skeletal structures: The skeletal structures are osteopenic. No lytic or blastic bony lesions are seen. IMPRESSION: 1. Extensive right-sided pulmonary emboli as above. 2. Diffuse intralobular septal thickening and diffuse peribronchial thickening suggest a component of congestive failure. Clinical correlation will be required. 3. Trace left pleural effusion. 4. There is no airspace consolidation typical for pneumonia. 5. There is abnormal right perihilar soft tissue, some of which may represent hilar adenopathy. An infiltrative soft tissue lesion/neoplasm is not excluded. Attention at follow-up is recommended. 6. There is an enlarged subcarinal lymph node. 7. There are abnormal findings in the liver which represents a change from 12/25/2019. Additionally, there is a small residual collection or tract identified in the left upper quadrant. Follow-up with a contrast enhanced abdominal CT is recommended when the patient is clinically able. 8. Additional findings as above. Consultation(s): Case was discussed with Dr. Irizarry, [facility] hospitalist, who will evaluate the patient for admission. HPI: The patient is a pleasant sensorineural woman with a past medical history of pancreatic cancer who is status post resection including splenectomy, uncontrolled IDDM 2, CKD, hypertension, hypothyroidism presents emergency depa rtment for progressive shortness of breath over the past 2 weeks with last chemotherapy 1 week ago. The patient denies any fevers, chills, cough, congestion, nausea, vomiting, diarrhea, urinary symptoms. She reports tightness within her chest centrally. ROS: See above HPI for pertinent positives & negatives. A total of 10 systems reviewed and were otherwise negative. PAST MEDICAL HISTORY:See Below PAST SURGICAL HISTORY:See Below FAMILY HISTORY:See Below SOCIAL HISTORY:See Below HOME MEDICATIONS:See Below ALLERGIES:See Below VITALS:See Below PHYSICAL EXAMINATION: GENERAL: Awake, alert, fatigued-appearing, in no distress, BMI 43.7 kg/M HENT: Normocephalic, atraumatic. Oropharynx unremarkable. EYES: Normal conjunctiva. Sclera non-icteric. NECK: Supple. No nuchal rigidity. FROM. No JVD. RESPIRATORY: Clear to auscultation. CARDIAC: Regular rate, normal rhythm. Extremities warm and well perfused. Pulses equal. ABDOMEN: Soft, non-distended. No tenderness to palpation. No rebound or guarding. No masses. RECTAL: Deferred. MUSCULOSKELETAL: Chest examination reveals no tenderness. The back is symmetrical on inspection without obvious abnormality. There is no CVA tenderness to palpation. No joint edema. LOWER EXTREMITIES: Calves are equal size bilaterally and non-tender. Scant BLE edema. No discoloration. NEURO: Normal sensorium. No sensory or motor deficits noted. SKIN: No rash or jaundice noted. ED COURSE: Critical Care: I have personally spent greater than 45 minutes of critical care time in the direct management of this patient. This includes bedside care, interpretation of diagnostic studies, and testing, discussion with consultants, patient, and family members, and other required patient management activities. This 45 minutes is in excess of all separately billable procedures. Dayton Johnson MD Past Med/Surg History Medical History Adenocarcinoma of pancreas Diverticulosis of colon History of adenomatous polyp of colon Hypertension Perforated sigmoid colon Renal colic on right side (Inactive) Right knee injury (Inactive) Right-sided thoracic back pain (Inactive) Stage III chronic kidney disease Surgical History History of section (02/05/12) History of colon surgery History of eye surgery History of partial pancreatectomy Hx of cholecystectomy Hx of hernia repair Hx of tonsillectomy Post-splenectomy S/P exploratory laparotomy Family History Father Myocardial infarction Mother Cardiac disorder Stroke Diabetes Gallbladder disease Hypertension Brother Cardiac disorder Diabetes Kidney disease Myocardial infarction Denies family history of Ovarian cancer Prostate cancer Breast cancer Colorectal cancer Social History Preferred Language: Icelandic Beliefs That Will Affect Care: None marital status: Current Living Situation: Spouse and Family current occupational status: retired Other Information That Helps Us Care for You: No Feels Safe at Home: Yes Safety Concerns: Feels Safe At This Time Smoking Status: Never smoker Hx Alcohol Use: No Hx Substance Use: No caffeine: No Dental Care, Regularly: No Physical Activity Frequency: Daily Seatbelt Use: never Sunscreen Use: No Allergies Allergies Allergy/AdvReac Type Severity Reaction Status Date / Time Sulfa (Sulfonamide Allergy Mild "SULFA Verified 05/19/20 16:15 Antibiotics) DRUGS"-HIVES Home Meds Home Medications Medication Instructions Recorded Confirmed aspirin 81 mg tablet,delayed 81 mg PO DAILY 10/23/19 05/19/20 release polyethylene glycol 3350 [Miralax] 17 g PO BID PRN 12/25/19 05/19/20 acetaminophen 500 mg capsule 500 mg PO Q8H PRN cap 12/31/19 05/19/20 amlodipine 5 mg PO DAILY 05/19/20 05/19/20 insulin glargine [Lantus U-100 53 unit SUBCUT DAILY 05/19/20 05/19/20 Insulin] insulin lispro [Humalog KwikPen 0 unit SUBCUT DIRECTED 05/19/20 05/19/20 Insulin] levothyroxine See Rx Instructions .ROUTE .COMPLEX 05/19/20 05/19/20 Previous Rx's Medication Instructions Recorded cholecalciferol (vitamin D3) 50 2,000 units PO DAILY #30 tab 10/09/19 mcg (2,000 unit) tablet cyanocobalamin (vitamin B-12) 1,000 mcg PO DAILY #30 cap 10/09/19 1,000 mcg capsule hydrochlorothiazide 25 mg tablet 25 mg PO DAILY #90 tab 11/04/19 BD Ultra-Fine Josefina Pen Needle 32 #400 ea NS 11/13/19 gauge x 5/32" atorvastatin 80 mg tablet 80 mg PO HS #90 tab 02/24/20 lisinopril 10 mg tablet 10 mg PO QAM #90 tab 03/31/20 metoprolol tartrate 50 mg tablet 50 mg PO BID #180 tab 05/15/20 Results & Data (ED) Vital Signs Vital Signs - 24 hr 05/19/20 13:34 05/19/20 14:13 05/19/20 14:30 Temperature 37.0 C Temperature Source Oral Pulse Rate 73 71 Pulse Rate from SpO2 Sensor 71 Respiratory Rate 20 18 Respiratory Effort / Characteristics Non-Labored Spontaneous Respiratory Depth Normal Respiratory Pattern Regular Blood Pressure 161/54 H Blood Pressure Mean 89 Pulse Oximetry 90 95 95 Oxygen Delivery Method Room Air Nasal Cannula Nasal Cannula Oxygen Flow Rate 2 2 Sepsis Recent Fever Within 48 Hours No Sepsis New/Unexplained Change in Mental Status No Oxygen Flow Rate - Titration 2 Pulse Oximetry Post Tiitration 95 05/19/20 15:00 05/19/20 15:30 05/19/20 15:56 Temperature Temperature Source Pulse Rate 72 66 72 Pulse Rate from SpO2 Sensor 71 67 73 Respiratory Rate 19 18 21 Respiratory Effort / Characteristics Respiratory Depth Respiratory Pattern Blood Pressure 144/88 H Blood Pressure Mean 123 Pulse Oximetry 93 93 95 Oxygen Delivery Method Nasal Cannula Nasal Cannula Nasal Cannula Oxygen Flow Rate 2 2 2 Sepsis Recent Fever Within 48 Hours Sepsis New/Unexplained Change in Mental Status Oxygen Flow Rate - Titration Pulse Oximetry Post Tiitration 05/19/20 16:00 05/19/20 16:32 05/19/20 17:00 Temperature Temperature Source Pulse Rate 94 H 79 80 Pulse Rate from SpO2 Sensor 80 Respiratory Rate 30 H 17 25 H Respiratory Effort / Characteristics Respiratory Depth Respiratory Pattern Blood Pressure Blood Pressure Mean Pulse Oximetry 92 Oxygen Delivery Method Oxygen Flow Rate Sepsis Recent Fever Within 48 Hours Sepsis New/Unexplained Change in Mental Status Oxygen Flow Rate - Titration Pulse Oximetry Post Tiitration 05/19/20 17:08 05/19/20 17:30 05/19/20 18:26 Temperature Temperature Source Pulse Rate 79 78 80 Pulse Rate from SpO2 Sensor 79 79 80 Respiratory Rate 16 22 22 Respiratory Effort / Characteristics Respiratory Depth Respiratory Pattern Blood Pressure 145/64 H 186/91 H Blood Pressure Mean 93 106 Pulse Oximetry 97 98 94 Oxygen Delivery Method Nasal Cannula Nasal Cannula Oxygen Flow Rate 4 3 Sepsis Recent Fever Within 48 Hours Sepsis New/Unexplained Change in Mental Status Oxygen Flow Rate - Titration Pulse Oximetry Post Tiitration 05/19/20 18:31 Temperature Temperature Source Pulse Rate Pulse Rate from SpO2 Sensor 80 Respiratory Rate 14 Respiratory Effort / Characteristics Respiratory Depth Respiratory Pattern Blood Pressure 177/85 H Blood Pressure Mean 133 Pulse Oximetry 94 Oxygen Delivery Method Nasal Cannula Oxygen Flow Rate 3 Sepsis Recent Fever Within 48 Hours Sepsis New/Unexplained Change in Mental Status Oxygen Flow Rate - Titration Pulse Oximetry Post Tiitration Laboratory Data Attestation: I reviewed the patient's lab results. Result diagrams: 05/19/20 14:27 05/19/20 14:27 Lab Results 05/19/20 05/19/20 05/19/20 Range/Units 14:27 14:27 14:27 WBC 4.92 (4.8-10.8) K/uL RBC 4.31 (4.2-5.4) M/uL Hgb 12.9 (12.0-16.0) g/dL Hct 39.1 (37-47) % MCV 90.7 (80-100) fL MCH 29.9 (25-34) pg MCHC 33.0 (32-36) g/dL RDW Std Deviation 85.7 H (36.4-46.3) fL RDW Coeff of Inés 27.0 H (11.5-14.5) % Plt Count 175 (130-400) K/uL Absolute Nucleated RBC 1.70 H (0-0) K/uL Nucleated RBC % (auto) 34.6 % Neutrophils % (Manual) 56.1 % Lymphocytes % (Manual) 23.4 % Monocytes % (Manual) 7.5 % Eosinophils % (Manual) 0.9 % Metamyelocytes % (Man) 3.7 % Myelocytes % (Man) 6.5 % Blast Cells % (Manual) 1.9 % Neutrophils # (Manual) 2.76 (1.4-6.5) K/uL Total Absolute Neuts 2.76 (1.4-6.5) K/uL Lymphocytes # (Manual) 1.15 L (1.2-3.4) K/uL Total Abs Lymphocytes 1.15 L (1.2-3.4) K/uL Monocytes # (Manual) 0.37 (0.11-0.59) K/uL Eosinophils # (Manual) 0.04 (0-0.5) K/uL Metamyelocytes # (Man) 0.18 H (0-0) K/uL Myelocytes # (Manual) 0.32 H (0-0) K/uL Blast Cells # (Man) 0.09 H (0-0) K/uL Blood Smear Review Giant Platelets 1+ Anisocytosis Present Echinocytes 1+ Peripher Smr Path Cons Cancelled PT 10.7 (9.0-12.0) Seconds INR 1.0 (0.9-1.1) APTT 25.4 (21.0-31.0) Seconds PTT Ratio 0.9 Sodium 140 (136-145) mmol/L Potassium 4.3 (3.5-5.1) mmol/L Chloride 106 (98-107) mmol/L Carbon Dioxide 27 (21-32) mmol/L Anion Gap 7.0 (3-11) BUN 25 H (7-18) mg/dl Creatinine 1.34 H (0.6-1.2) mg/dl Est Cr Clr Drug Dosing 42.3 ml/min Est GFR ( Amer) 44.2 Est GFR (Non-Af Amer) 38.1 BUN/Creatinine Ratio 18.7 (10-20) Glucose 184 H (70-99) mg/dl Calcium 8.8 (8.5-10.1) mg/dl Phosphorus 2.5 (2.5-4.9) mg/dl Magnesium 2.0 (1.8-2.4) mg/dl Total Bilirubin 0.6 (0.2-1) mg/dl Direct Bilirubin 0.2 (0-0.2) mg/dl AST 78 H (15-37) U/L ALT 57 (12-78) U/L Alkaline Phosphatase 115 (45-117) U/L Troponin I < 0.015 (0-0.045) ng/ml NT-Pro-B Natriuret Pep 229 (0-1800) pg/ml Total Protein 7.1 (6.4-8.2) gm/dl Albumin 2.9 L (3.4-5.0) gm/dl Globulin 4.2 H (2.5-4.0) gm/dl Albumin/Globulin Ratio 0.7 L (0.9-2) Lipase 38 L (73-393) U/L Administered Medications Atorvastatin Calcium (Lipitor) 80 mg PO HS NAM Stop: 06/18/20 20:59 Last Admin: 05/19/20 22:28 Dose: 80 mg Documented by: [id number] Sodium Chloride (Nss 1000ml) 1,000 mls @ 80 mls/hr IV .[id number] NAM Stop: 05/20/20 21:21 Last Admin: 05/19/20 22:28 Dose: 80 mls/hr Documented by: [id number] Insulin Aspart (Novolog Flexpen) 0 units SC ACHS NAM Stop: 06/18/20 20:59 Last Admin: 05/19/20 22:29 Dose: 7 units Documented by: [id number] Cosigned by: [id number] Ioversol (Optiray 320 125ml) 118 ml IV ONCE PRN PRN Reason: Interaction Checking Stop: 05/23/20 16:21 Last Admin: 05/19/20 16:22 Dose: 118 ml Documented by: [id number] Metoprolol Tartrate (Lopressor) 50 mg PO BID NAM Stop: 06/18/20 20:59 Last Admin: 05/19/20 22:28 Dose: 50 mg Documented by: [id number] Discontinued Medications Enoxaparin Sodium (Lovenox) 111 mg SQ NOW STA Stop: 05/19/20 18:05 Last Admin: 05/19/20 18:31 Dose: 111 mg Documented by: [id number] Insulin Glargine (Lantus Solostar Pen) 30 units SC TODAY@[id number] [facility] Stop: 05/19/20 22:31 Last Admin: 05/19/20 22:50 Dose: 30 units Documented by: [id number] Cosigned by: [id number] Blood Pressure Blood Pressure Findings: Normal blood pressure Blood Pressure Disposition: further management by hospitalist Discharge Plan Visit Data *Final* Discharge Date/Time: 05/19/20 19:55 Chief Complaint: Shortness of Breath/Dyspnea Stated Complaint: SOB ED Provider: Dayton Johnson Discharge Problem: Pulmonary embolism on right, Stage III chronic kidney disease, Adenocarcinoma of pancreas, Shortness of breath Patient Disposition: Admitted As Inpatient Discharge Instructions Interventions: ED Discharge Assessment Last Done: 05/19/20 19:55
--- NOTE | 2020-05-19 14:46 | XRay Report ---
SINGLE VIEW CHEST CLINICAL HISTORY: Atypical chest pain. FINDINGS: An AP, portable, upright chest radiograph is compared to chest x-ray and chest CT dated 12/07. The examination is degraded by portable technique and patient rotation. The heart is enlarged noting atherosclerotic calcification of the thoracic aorta. There is pulmonary vascular congestion. Bibasilar opacities likely represent atelectasis. No large pleural effusion or pneumothorax is seen. The skeletal structures are osteopenic. The bony thorax is grossly intact. IMPRESSION: 1. Cardiomegaly with pulmonary vascular congestion. 2. Bibasilar opacities likely represent atelectasis. Clinical correlation will be required. ACT 112: Negative or not required by law. Electronically signed by: Ignacio Cabrera M.D. 05/19/2020 2:45 PM
[2020-05-19 14:48] LABS: Partial Thromboplastin Ratio 0.9; Partial Thromboplastin Time 25.4 Seconds (21.0-31.0); Prothrombin Time 10.7 Seconds (9.0-12.0)
[2020-05-19 15:03] LABS: Alanine Aminotransferase 57 U/L (12-78); Albumin Level 2.9 gm/dl (3.4-5.0); Aspartate Aminotransferase 78 U/L (15-37); BUN Creatinine Ratio 18.7 (10-20); Bilirubin Direct 0.2 mg/dl (0-0.2); Blood Urea Nitrogen 25 mg/dl (7-18); Calcium 8.8 mg/dl (8.5-10.1); Carbon Dioxide 27 mmol/L (21-32); Chloride 106 mmol/L (98-107); Creatinine Clr Calc Pharmacy 42.3 ml/min; Est GFR (African American) 44.2; Est GFR (Non-African American) 38.1; Glucose 184 mg/dl (70-99); Lipase 38 U/L (73-393); Potassium 4.3 mmol/L (3.5-5.1); Sodium 140 mmol/L (136-145)
[2020-05-19 15:06] LABS: Albumin Globulin Ratio 0.7 (0.9-2); Alkaline Phosphatase 115 U/L (45-117); Bilirubin,Total 0.6 mg/dl (0.2-1); Globulin 4.2 gm/dl (2.5-4.0); NT Pro B Type Natriuretic Pept 229 pg/ml (0-1800); Phosphorus 2.5 mg/dl (2.5-4.9); Total Protein 7.1 gm/dl (6.4-8.2); Troponin I < 0.015 ng/ml (0-0.045)
[2020-05-19 15:42] LABS: Hematocrit (blood only) 39.1 % (37-47); Hemoglobin 12.9 g/dL (12.0-16.0); Mean Corpuscular Hemoglobin 29.9 pg (25-34); Mean Corpuscular Volume 90.7 fL (80-100); Platelet Count 175 K/uL (130-400); RDW Standard Deviation 85.7 fL (36.4-46.3); Red Blood Count 4.31 M/uL (4.2-5.4); White Blood Count 4.92 K/uL (4.8-10.8)
--- NOTE | 2020-05-19 15:43 | Electrocardiogram Report ---
Test Reason : Blood Pressure : / mmHG Vent. Rate : 077 BPM Atrial Rate : 077 BPM P-R Int : 202 ms QRS Dur : 084 ms QT Int : 406 ms P-R-T Axes : 059 236 055 degrees QTc Int : 459 ms Poor data quality, interpretation may be adversely affected Normal sinus rhythm Right superior axis deviation Low voltage QRS Poor R wave progression, consider anterior TX vs. lead placement vs. LVH Abnormal ECG When compared with ECG of 25-DEC-2019 05:41, QRS axis Shifted left Confirmed by Yuri Roe ([id number]) on 05/19/2020 3:42:52 PM Referred By: Confirmed By:Davon Roe
[2020-05-19 15:48] LABS: Anisocytosis Present; Echinocytes 1+; Giant Platelets 1+
[2020-05-19 15:50] LABS: ALC (manual) 1.15 K/uL (1.2-3.4); ANC (manual) 2.76 K/uL (1.4-6.5); Blast # (manual) 0.09 K/uL (0-0); Blast Cells % (manual) 1.9 %; Eosinophils # (manual) 0.04 K/uL (0-0.5); Eosinophils % (manual) 0.9 %; Lymphocytes # (manual) 1.15 K/uL (1.2-3.4); Lymphocytes % (manual) 23.4 %; Metamyelocytes # (manual) 0.18 K/uL (0-0); Metamyelocytes % (manual) 3.7 %; Monocytes # (manual) 0.37 K/uL (0.11-0.59); Monocytes % (manual) 7.5 %; Myelocytes # (manual) 0.32 K/uL (0-0); Myelocytes % (manual) 6.5 %; Neutrophils # (manual) 2.76 K/uL (1.4-6.5); Neutrophils % (manual) 56.1 %
[2020-05-19 15:54] LABS: Nucleated RBC % (auto) 34.6 %
[2020-05-19] MEDS ORDERED: OPTIRAY 320 125ml IV PRN (16:22)
--- NOTE | 2020-05-19 16:48 | CT Scan Report ---
CT ANGIOGRAM OF THE CHEST CLINICAL HISTORY: Dyspnea. Atypical chest pain. COMPARISON STUDY: Chest x-ray dated 05/19/2020. Chest CT scans dated 12/25/2019 and 03/16/2011. Abdomin al CT dated 12/25/2019. TECHNIQUE: Following the IV administration of 118 cc of Optiray 320, CT angiogram of the chest was pe rformed from the upper abdomen to the thoracic inlet utilizing the pulmonary embolus protocol. Images are reviewed in the axial, sagittal, and coronal planes. 3-D MIPS images are created and assessed. I V contrast was administered without complication. A dose lowering technique was utilized adhering to the principles of ALARA. CT DOSE: 1097.82 mGy.cm FINDINGS: Thyroid: Imaged portions of the thyroid gland are normal in size and attenuation. Thoracic aorta: There is atherosclerotic calcification of the thoracic aorta, which is normal in bonny maria fernanda and demonstrates standard 3-vessel arch anatomy. No dissection is seen. Pulmonary vasculature: The pulmonary trunk is normal in caliber. There is pulmonary embolus within th e distal right main pulmonary artery. Pulmonary embolus is seen within the right upper, middle, and l ower lobe pulmonary arteries extending into segmental and subsegmental branches. Heart: The heart is normal in size and without pericardial effusion. The coronary arteries are densel y calcified. Lungs and pleural spaces: Evaluation of the lung parenchyma is degraded by motion artifact. Atelectas is is noted at the lung bases. There is no airspace consolidation typical for pneumonia. There is tra ce left pleural effusion. Mild diffuse intraoperative septal thickening is seen throughout both lungs . The trachea and central airways are clear. There is diffuse peribronchial thickening. There is abno rmal right perihilar soft tissue. Mediastinum: Enlarged subcarinal node on image #132 measures 2.4 cm in short axis. Additional subcent imeter mediastinal nodes are noted. Beata: Question right hilar adenopathy. No left hilar adenopathy is seen. Axillae: There is no axillary lymphadenopathy. Upper abdomen: A 5 cm cyst is partially visualized in the upper pole of the left kidney. There is a s mall hiatal hernia. A 2.0 cm residual collection or tract is partially imaged in the left upper quadr ant on image #11. There is an indeterminant 1.8 cm subcapsular hypodensity in the right hepatic lobe seen on image #33. Foci of low-attenuation are also suggested in the left lobe and caudate. These are new from 12/25/2019. Skeletal structures: The skeletal structures are osteopenic. No lytic or blastic bony lesions are see n. IMPRESSION: 1. Extensive right-sided pulmonary emboli as above. 2. Diffuse intralobular septal thickening and diffuse peribronchial thickening suggest a component of congestive failure. Clinical correlation will be required. 3. Trace left pleural effusion. 4. There is no airspace consolidation typical for pneumonia. 5. There is abnormal right perihilar soft tissue, some of which may represent hilar adenopathy. An in filtrative soft tissue lesion/neoplasm is not excluded. Attention at follow-up is recommended. 6. There is an enlarged subcarinal lymph node. 7. There are abnormal findings in the liver which represents a change from 12/25/2019. Additionally, t here is a small residual collection or tract identified in the left upper quadrant. Follow-up with a contrast enhanced abdominal CT is recommended when the patient is clinically able. 8. Additional findings as above. ACT 112: Negative or not required by law. Electronically signed by: Ignacio Cabrera M.D. 05/19/2020 4:46 PM
[2020-05-19] MEDS ORDERED: ENOXAPARIN 1 MG/KG SQ STA (17:58)
[2020-05-19] MEDS ORDERED: ENOXAPARIN INJ 120 MG/0.8 ML SYR SQ STA (18:04)
--- NOTE | 2020-05-19 19:29 | History & Physical Report ---
Date of Service May 19, 2020 Assessment & Plan (1) Pulmonary embolism on right: Patient is a 75 year old female with PMHx Pancreatic cancer s/p distal pancreatectomy 12/10/19, splenectomy, HTN, DM2, Hypothyroidism, CKD III, who presents with 2 weeks of worsening shortness of breath, fatigue, and KING. R Pulmonary Embolism -Chest CTA noting pulmonary embolus within the distal R main pulmonary artery. Pulmonary embolus within the R upper, middle, and lower lobe pulmonary arteries extending into segmental and subsegmental branches. -Also noted on CT is an abnormal R perihilar soft tissue, infiltrative soft tissue lesion/neoplasm cannot be excluded - attention at follow-up is recommended. -Additional abnormal findings in the liver representing change from 12/25/2019 with recommendation for contrast enhanced abdominal CT once patient is clinically able. -Enoxaparin 1mg/kg BID for therapeutic dosing -O2 NC as needed, O2% >92% -Venous doppler of LE bilateral pending -PT/OT ordered Adenocarcinoma of Pancreas -S/P distal pancreatectomy on 12/10/19 -S/P splenectomy -Currently on week break from chemotherapy Diabetes Mellitus 2 -SSI and Lantus 19u QD -Glycemic consult ordered CKD Stage III -Creatinine slightly elevated at 1.34 on admission -Ranges from 0.97 to 1.4 in the past -Holding HCTZ and Lisinopril until improvement in renal function -Gentle hydration NSS 80ml/hr Hypothyroidism -Continue Levothyroxine 25mcg Mon-Mon, 50mcg Monday -TSH pending Hyperlipidemia -Continue Atorvastatin 80mg QHS -Continue ASA 81mg QD Hypertension -Holding HCTZ and Lisinopril until renal function improves -Continue home Metoprolol Tartrate 50mg BID -Continue amlodipine 5mg QD Chronic Constipation -Continue Miralax PRN constipation Dispo: Med/Surg Tele FEN: HH DM2 diet, NSS 80ml/hr DVT: Lovenox 1mg/kg BID Code: DNR/DNI (2) Adenocarcinoma of pancreas: (3) Stage III chronic kidney disease: (4) Chronic constipation: (5) Hypothyroidism: (6) Hypertension: (7) Uncontrolled type 2 diabetes mellitus with kidney complication, with long- term current use of insulin: (8) Hyperlipidemia: History of Present Illness Chief Complaint: SOB, Fatigue Primary Care Provider: NO PCP Patient is a 75 year old female with PMHx Pancreatic cancer s/p distal pancreatectomy 12/10/19, splenectomy, HTN, DM2, Hypothyroidism, CKD III, who presents with 2 weeks of worsening shortness of breath, fatigue, and KING. Patient notes that for the past 2 weeks she has had increasingly worsening shortness of breath and fatigue, and that anytime she would bring it up it was noted that it was likely secondary to her chemotherapy. Patient notes that she has had 7 treatments of chemotherapy since her pancreatic resection, she gets treatments once a week x3 weeks and then has a break. She is currently on her break from chemotherapy. Also of note, patient states that roughly 5-6 weeks ago she began having worsening swelling in her legs L>R and that she was also having redness and pain in her thighs respectively. She notes that she currently has s ome epigastric tightness that worsens with deep inhalation, KING, orthopnea, and bilateral calf tenderness and swelling L > R. She denies any fever, chills, chest pain, abdominal pain, diarrhea, dysuria, headache, visual changes. Social Hx: Does not use tobacco, alcohol, or illicit drugs Patient is a DNR/DNI. Allergies Allergy/AdvReac Type Severity Reaction Status Date / Time Sulfa (Sulfonamide Allergy Mild "SULFA Verified 05/19/20 16:15 Antibiotics) DRUGS"-HIVES Home Medications Home Medications Medication Instructions Recorded Confirmed Type cholecalciferol (vitamin D3) 50 2,000 units PO DAILY #30 tab 10/09/19 05/19/20 Rx mcg (2,000 unit) tablet cyanocobalamin (vitamin B-12) 1,000 mcg PO DAILY #30 cap 10/09/19 05/19/20 Rx 1,000 mcg capsule aspirin 81 mg tablet,delayed 81 mg PO DAILY 10/23/19 05/19/20 History release hydrochlorothiazide 25 mg tablet 25 mg PO DAILY #90 tab 11/04/19 05/19/20 Rx BD Ultra-Fine Josefina Pen Needle 32 #400 ea NS 11/13/19 03/19/20 Rx gauge x 5/32" polyethylene glycol 3350 [Miralax] 17 g PO BID PRN 12/25/19 05/19/20 History acetaminophen 500 mg capsule 500 mg PO Q8H PRN cap 12/31/19 05/19/20 History atorvastatin 80 mg tablet 80 mg PO HS #90 tab 02/24/20 05/19/20 Rx lisinopril 10 mg tablet 10 mg PO QAM #90 tab 03/31/20 05/19/20 Rx metoprolol tartrate 50 mg tablet 50 mg PO BID #180 tab 05/15/20 05/19/20 Rx amlodipine 5 mg PO DAILY 05/19/20 05/19/20 History insulin glargine [Lantus U-100 40 unit SUBCUT BID 05/19/20 05/21/20 History Insulin] insulin lispro [Humalog KwikPen 0 unit SUBCUT DIRECTED 05/19/20 05/19/20 History Insulin] levothyroxine See Rx Instructions .ROUTE .COMPLEX 05/19/20 05/19/20 History Past Med/Surg History Medical History Adenocarcinoma of pancreas (Acute) Diverticulosis of colon History of adenomatous polyp of colon Hypertension Perforated sigmoid colon Renal colic on right side (Inactive) Right knee injury (Inactive) Right-sided thoracic back pain (Inactive) Stage III chronic kidney disease (Acute) Surgical History History of section (02/05/12) History of colon surgery History of eye surgery History of partial pancreatectomy Hx of cholecystectomy Hx of hernia repair Hx of tonsillectomy Post-splenectomy S/P exploratory laparotomy Family History Father Myocardial infarction Mother Cardiac disorder Stroke Diabetes Gallbladder disease Hypertension Brother Cardiac disorder Diabetes Kidney disease Myocardial infarction Denies family history of Ovarian cancer Prostate cancer Breast cancer Colorectal cancer Social History Preferred Language: Libyan Communication Ability: Effective Beliefs That Will Affect Care: None marital status: Current Living Situation: Spouse and Family current occupational status: retired Other Information That Helps Us Care for You: No Feels Safe at Home: Yes Safety Concerns: Feels Safe At This Time Smoking Status: Never smoker Hx Alcohol Use: No Hx Substance Use: No caffeine: No Dental Care, Regularly: No Physical Activity Frequency: Daily Seatbelt Use: never Sunscreen Use: No Review of Systems Review of Systems: All systems reviewed & are unremarkable except as noted in Subjective Physical Exam Constitutional: well developed, well nourished, + morbidly obese, + frail appearing, cooperative and comfortable; no acute distress Eyes: PERRL, conjunctivae normal, anicteric sclerae normal visual booth by confrontation ENMT: external ear and nose normal, oropharynx normal Neck: trachea midline, no thyromegaly Respiratory: normal respiratory effort (on 3L NC ); no respiratory distress, no labored breathing, no retractions, does not use accessory muscles, no cough and no stridor Auscultation: lungs clear to auscultation bilaterally and + diminished lung sounds (at bases ); no crackles, no rales, no rhonchi and no wheezes Cardiovascular: Rate/Rhythm: regular rate and regular rhythm Heart Sounds: no murmur Vessels: posterior tibial pulses present and dorsalis pedis pulses present; no JVD Extremities: + calf tenderness (bilateral, L>R ) and + edema (+1 to the mid cardoza ) Gastrointestinal (Abdomen): normal bowel sounds, soft, nontender, no hepatosplenomegaly Inspection/Auscultation: + significant pannus and + abdominal surgical scar Musculoskeletal: Head/Neck/Chest: normocephalic and head atraumatic Extremities: strength 5/5 throughout Neurologic: PERRL, EOMI, accommodation nl, no face palsy, no dysarthria Psychiatric: A+Ox3, euthymic affect Results & Data Results & Data ([facility]) Vital Signs (Past 12 Hours) Vital Signs Temp Pulse Resp BP Pulse Ox 05/19/20 18:31 14 177/85 H 94 05/19/20 18:26 80 22 186/91 H 94 05/19/20 17:30 78 22 98 05/19/20 17:08 79 16 145/64 H 97 05/19/20 17:00 80 25 H 05/19/20 16:32 79 17 92 05/19/20 16:00 94 H 30 H 05/19/20 15:56 72 21 144/88 H 95 05/19/20 15:30 66 18 93 05/19/20 15:00 72 19 93 05/19/20 14:30 71 18 95 05/19/20 14:13 95 05/19/20 13:34 37.0 C 73 20 161/54 H 90 Code Status & VTE Plan VTE Prophylaxis Plan VTE Prophylaxis will be ordered: Yes Supervising Physician Co-Signing Physician Notes During my face to face encounter with the patient, I obtained a history and physical examination. I agree with above note. I discussed case with Resident Arambula and the patient. I answered all of the patient's questions. In regards to the pulmonary emboli, will obtain U/S of lower extremities to assess for DVT. Will continue lovenox at 1mg/kg Likely secondary to pancreatic cancer. PG Care Time/CCT Total # of Minutes Spent Total Time Spent with Patient: Total time spent is greater than 50% in coordination of care (as documented) at patient's floor/unit and/or counseling patient: Coding Level of Care Code 50337 Initial Inpt Care Lvl 3 Diagnoses Pulmonary embolism on right I26.99 Adenocarcinoma of pancreas C25.9 Stage III chronic kidney disease N18.3 Chronic constipation K59.09 Hypothyroidism E03.9 Hypertension I10 Uncontrolled type 2 diabetes mellitus with kidney complication, with long-term current use of insulin E11.29; E11.65; Z79.4 Hyperlipidemia E78.5 Resident Activity Tracking Resident Involvement: Resident Care Provided Care Provided: Adult Hospital Medicine
[2020-05-19] MEDS ORDERED: CARBOHYDRATES FOR HYPOGLYCEMIA PO PRN (20:22)
[2020-05-19] MEDS ORDERED: GLUCAGON FOR INJ 1 MG VIAL SQ PRN (20:22)
[2020-05-19] MEDS ORDERED: GLUCOSE 10 TABS/TUBE PO PRN (20:22)
[2020-05-19] MEDS ORDERED: GLUCOSE 40% GEL 15 GM TUBE PO PRN (20:22)
[2020-05-19] MEDS ORDERED: DEXTROSE 50% 50 ML SYRINGE IV PRN (20:22)
[2020-05-19] MEDS ORDERED: PHARMACY GLYCEMIC MGMT CONSULT PRN (21:10)
[2020-05-19] MEDS: SODIUM CHLORIDE 0.9% 1000ML 1,000 ML IV SCH (22:28)
[2020-05-19] MEDS: ATORVASTATIN 40 MG TAB PO SCH (22:28)
[2020-05-19] MEDS: METOPROLOL TARTRATE 50 MG TAB PO SCH (22:28)
[2020-05-19] MEDS: INSULIN ASPART 100 UNITS/ML 3 ML PEN SC SCH (22:29)
[2020-05-19] MEDS ORDERED: INSULIN GLARGINE SOLOSTAR 100 UNITS/ML 3 ML PEN SC SCH (22:30)
[2020-05-20] MEDS: LEVOTHYROXINE SODIUM 25 MCG TABLET PO SCH (06:07)
--- NOTE | 2020-05-20 07:10 | Ultrasound Report ---
ULTRASOUND BILATERAL LOWER EXTREMITY VENOUS CLINICAL HISTORY: Pulmonary embolus. COMPARISON STUDY: Right lower extremity venous ultrasound dated 08/19/2016. TECHNIQUE: Real-time, grayscale, and color Doppler sonography of the deep veins of the right and left lower extremity was performed from the inguinal crease to the calf. Compression and augmentation wer e utilized. FINDINGS: There is no sonographic evidence of deep venous thrombosis identified in the right or left lower extremity. The common femoral, superficial femoral, and popliteal veins are patent and normally compressible bilaterally. The greater saphenous vein and the profunda femoris vein at the junction w ith the common femoral vein are clear in both legs. The visualized calf veins are patent bilaterally. A minimally complex right popliteal cyst measures 4.7 x 1.2 x 3.5 cm. IMPRESSION: 1. There is no sonographic evidence of deep venous thrombosis identified in the right or left lower e xtremity. 2. Right-sided Scales's cyst. ACT 112: Negative or not required by law. Electronically signed by: Ignacio Cabrera M.D. 05/20/2020 7:09 AM
[2020-05-20] MEDS: AMLODIPINE BESYLATE 5 MG TAB PO SCH (08:17)
[2020-05-20] MEDS: METOPROLOL TARTRATE 50 MG TAB PO SCH ×2 (08:17→20:13)
[2020-05-20] MEDS: ENOXAPARIN INJ 120 MG/0.8 ML SYR SC SCH ×2 (08:18→20:11)
[2020-05-20] MEDS: INSULIN ASPART 100 UNITS/ML 3 ML PEN SC SCH ×4 (08:19→20:17)
[2020-05-20] MEDS: ASPIRIN 81 MG ECTAB PO SCH (08:20)
[2020-05-20 09:33] LABS: Mean Corpuscular Hgb Conc 33.1 g/dL (32-36)
[2020-05-20 09:57] LABS: Hematocrit (blood only) 35.9 % (37-47); Hemoglobin 11.9 g/dL (12.0-16.0); Mean Corpuscular Hemoglobin 30.4 pg (25-34); Mean Corpuscular Volume 91.6 fL (80-100); Nucleated RBC # (auto) 1.55 K/uL (0-0); Nucleated RBC % (auto) 30.1 %; Platelet Count 147 K/uL (130-400); RDW Coefficient of Variation 27.5 % (11.5-14.5); RDW Standard Deviation 85.7 fL (36.4-46.3); Red Blood Count 3.92 M/uL (4.2-5.4); White Blood Count 5.16 K/uL (4.8-10.8)
[2020-05-20 09:59] LABS: ANC (manual) 1.86 K/uL (1.4-6.5); Acanthocytes 1+; Echinocytes 1+; Howell-Jolly Bodies 1+; Monocytes # (manual) 0.98 K/uL (0.11-0.59); Myelocytes # (manual) 0.52 K/uL (0-0); Neutrophils # (manual) 1.86 K/uL (1.4-6.5); Polychromasia 1+; Target Cells 1+
[2020-05-20 10:05] LABS: Estimated Average Glucose 200 mg/dl; Hemoglobin A1C 8.6 % (4.5-5.6)
[2020-05-20 10:35] LABS: Albumin Level 2.7 gm/dl (3.4-5.0); BUN Creatinine Ratio 17.6 (10-20); Calcium 8.4 mg/dl (8.5-10.1); Creatinine Clr Calc Pharmacy 45.3 ml/min; Est GFR (African American) 48.1; Est GFR (Non-African American) 41.5; Potassium 4.4 mmol/L (3.5-5.1)
[2020-05-20 10:45] LABS: Albumin Globulin Ratio 0.8 (0.9-2); Bilirubin,Total 0.6 mg/dl (0.2-1); Globulin 3.5 gm/dl (2.5-4.0); Thyroid Stimulating Hormone 6.81 uIu/ml (0.300-4.500); Total Protein 6.2 gm/dl (6.4-8.2)
[2020-05-20 10:58] LABS: T4 Free Thyroxine 1.19 ng/dl (0.8-1.6)
[2020-05-20] MEDS: SODIUM CHLORIDE 0.9% 1000ML 1,000 ML IV SCH (11:18)
--- NOTE | 2020-05-20 12:12 | Pharmacy Report ---
Pharmacy Glycemic Short Note 2 - Date of Service May 20, 2020 - Glycemic Short BSG Results (Last 24 hours): 05/19/20 05/19/20 05/20/20 14:27 20:36 07:25 Glucose 184 H POC Glucose 183 H 94 05/20/20 05/20/20 05/20/20 08:47 09:28 11:44 Glucose Cancelled 148 H POC Glucose 128 H OUTPATIENT ANTIDIABETIC REGIMEN (per patient report): * Lantus 40 units SQ BID * Humalog 10-12 units with each meal * A1c = 8.6% 05/19/20 ASSESSMENT: * Type 2 diabetic admitted to [facility] for distal R main PE * Patient reports being compliant with out-pt regimen and very rarely experiences a low with the current regimen. She does however report having a more carb restricted diet while hospitalized. * Fasting BSG 97 this AM with 70 units of basal insulin on board - will reduce Lantus doses and use dosing scale to lessen hypoglycemia risk * Novolog doses are reasonable to continue at this time, doses are consistent w/ "moderate" stress level based upon weight. Her outpt regimen was heavily weighted basal. May need to transition more insulin into prandial regimen with time, however she has a relatively higher basal insulin dose on board at this time. PLAN FOR INPATIENT GLYCEMIC CONTROL: * Basal insulin * Lantus SQ BID per scale: 0 units if less than 110, 20 units if 110-140, 25 units if 141-200, 30 units if greater than 200 * Bolus insulin * NovoLog per scale ACHS or Q6hrs while NPO * Goal Range: Low 110 mg/dL - High 140 mg/dL * Correction Factor: 20 mg/dL/unit * Nutritional / Prandial insulin per carb ratio of 1 unit per 7 grams CHO consumed PLAN FOR DISCHARGE: * A1c of 8.6 is above goal for many patients, however goals need to be individualized. Given patient's chemotherapy and changes in eating habits it may be difficult to achieve lower A1c without a higher risk of hypoglycemia.
[2020-05-20] MEDS ORDERED: INSULIN GLARGINE SOLOSTAR 100 UNITS/ML 3 ML PEN SC ONE (12:15)
[2020-05-20] MEDS: POLYETHYLENE (MIRALAX) 17 GM PACK PO PRN (20:11)
[2020-05-20] MEDS: ATORVASTATIN 40 MG TAB PO SCH (20:13)
[2020-05-20] MEDS: INSULIN GLARGINE SOLOSTAR 100 UNITS/ML 3 ML PEN SC SCH (20:14)
[2020-05-21] MEDS: LEVOTHYROXINE SODIUM 25 MCG TABLET PO SCH (06:16)
--- NOTE | 2020-05-21 06:50 | Hospitalist Progress Note ---
Date of Service May 20, 2020 Assessment & Plan (1) Pulmonary embolism on right: Patient is a 75 year old female with PMHx Pancreatic cancer s/p distal pancreatectomy 12/10/19, splenectomy, HTN, DM2, Hypothyroidism, CKD III, who presents with 2 weeks of worsening shortness of breath, fatigue, and KING. R Pulmonary Embolism -Chest CTA noting pulmonary embolus within the distal R main pulmonary artery. Pulmonary embolus within the R upper, middle, and lower lobe pulmonary arteries extending into segmental and subsegmental branches. -Also noted on CT is an abnormal R perihilar soft tissue, infiltrative soft tissue lesion/neoplasm cannot be excluded - attention at follow-up is recommended. -Additional abnormal findings in the liver representing change from 12/25/2019 with recommendation for contrast enhanced abdominal CT once patient is clinically able. -Enoxaparin 1mg/kg BID for therapeutic dosing -O2 NC as needed, O2% >92% -Venous doppler of LE bilateral pending -PT/OT ordered -Patient will remain in the hospital for another day, if she continues to require oxygen, she may require a 2 step tomorrow. Adenocarcinoma of Pancreas -S/P distal pancreatectomy on 12/10/19 -S/P splenectomy -Currently on week break from chemotherapy Diabetes Mellitus 2 -SSI and Lantus 19u QD -Glycemic consult ordered CKD Stage III -Creatinine slightly elevated at 1.34 on admission -Ranges from 0.97 to 1.4 in the past -Holding HCTZ and Lisinopril until improvement in renal function -Creatinine remains slightly elevated -Gentle hydration NSS 80ml/hr Hypothyroidism -Continue Levothyroxine 25mcg Mon-Mon, 50mcg Monday Hyperlipidemia -Continue Atorvastatin 80mg QHS -Continue ASA 81mg QD Hypertension -Holding HCTZ and Lisinopril until renal function improves -Continue home Metoprolol Tartrate 50mg BID -Continue amlodipine 5mg QD Chronic Constipation -Continue Miralax PRN constipation Dispo: Med/Surg Tele FEN: HH DM2 diet, NSS 80ml/hr DVT: Lovenox 1mg/kg BID Code: DNR/DNI (2) Adenocarcinoma of pancreas: (3) Stage III chronic kidney disease: (4) Chronic constipation: (5) Hypothyroidism: (6) Hypertension: (7) Uncontrolled type 2 diabetes mellitus with kidney complication, with long- term current use of insulin: (8) Hyperlipidemia: Admission and Anticipated Discharge Date Admission Date: May 19, 2020 Subjective Patient reports feeling mildly improved today. Still not at baseline. She reports she normallyy does not require oxygen at home. Review of Systems Review of Systems: All systems reviewed & are unremarkable except as noted in HPI & below Physical Exam Physical Exam: Constitutional: well developed, well nourished, + morbidly obese, + frail appearing, cooperative and comfortable; no acute distress Eyes: PERRL, conjunctivae normal, anicteric sclerae normal visual booth by confrontation ENMT: external ear and nose normal, oropharynx normal Neck: trachea midline, no thyromegaly Respiratory: normal respiratory effort (on 2L NC ); no respiratory distress, no labored breathing, no retractions, does not use accessory muscles, no cough and no stridor Auscultation: lungs clear to auscultation bilaterally and + diminished lung sounds (at bases ); no crackles, no rales, no rhonchi and no wheezes Cardiovascular: Rate/Rhythm: regular rate and regular rhythm Heart Sounds: no murmur Vessels: posterior tibial pulses present and dorsalis pedis pulses present; no JVD Extremities: + calf tenderness (bilateral, L>R ) and + edema (+1 to the mid cardoza ) Gastrointestinal (Abdomen): normal bowel sounds, soft, nontender, no hepatosplenomegaly Inspection/Auscultation: + significant pannus and + abdominal surgical scar Musculoskeletal: Head/Neck/Chest: normocephalic and head atraumatic Extremities: strength 5/5 throughout Neurologic: PERRL, EOMI, accommodation nl, no face palsy, no dysarthria Psychiatric: A+Ox3, euthymic affect Results & Data Results & Data ([facility]) Vital Signs (Past 12 Hours) Vital Signs Temp Pulse Resp BP Pulse Ox 05/21/20 04:14 36.7 C 72 21 147/88 H 91 05/21/20 00:24 36.5 C 69 21 141/61 H 91 05/20/20 19:05 74 18 147/87 H 90 PG Care Time/CCT Total # of Minutes Spent Total Time Spent with Patient: Total time spent is greater than 50% in coordination of care (as documented) at patient's floor/unit and/or counseling patient: Coding Level of Care Code 18806 Subseq Hosp Care Lvl 3 Diagnoses Pulmonary embolism on right I26.99 Adenocarcinoma of pancreas C25.9 Stage III chronic kidney disease N18.3 Chronic constipation K59.09 Hypothyroidism E03.9 Hypertension I10 Uncontrolled type 2 diabetes mellitus with kidney complication, with long-term current use of insulin E11.29; E11.65; Z79.4 Hyperlipidemia E78.5 Time Spent (min) 35
[2020-05-21] MEDS: INSULIN ASPART 100 UNITS/ML 3 ML PEN SC SCH ×4 (08:15→21:05)
[2020-05-21] MEDS: INSULIN GLARGINE SOLOSTAR 100 UNITS/ML 3 ML PEN SC SCH ×2 (08:16→21:05)
[2020-05-21] MEDS: METOPROLOL TARTRATE 50 MG TAB PO SCH ×2 (08:16→20:02)
[2020-05-21] MEDS: AMLODIPINE BESYLATE 5 MG TAB PO SCH (08:16)
[2020-05-21] MEDS: ASPIRIN 81 MG ECTAB PO SCH (08:16)
[2020-05-21] MEDS: ENOXAPARIN INJ 120 MG/0.8 ML SYR SC SCH ×2 (08:17→19:57)
[2020-05-21 10:19] LABS: BUN Creatinine Ratio 16.7 (10-20); Calcium 8.7 mg/dl (8.5-10.1); Creatinine Clr Calc Pharmacy 42.6 ml/min; Est GFR (African American) 44.6; Est GFR (Non-African American) 38.5; Potassium 4.4 mmol/L (3.5-5.1)
--- NOTE | 2020-05-21 10:49 | Hospitalist Progress Note ---
Date of Service May 21, 2020 Assessment & Plan (1) Acute respiratory failure with hypoxia: 2nd to extensive right-sided PEs along with acute diastolic CHF Will need 2-step at hospital d/c (2) Pulmonary embolism on right: provoked - in setting of pancreatic cancer remains on lovenox 1mg/kg BID candidate for novel agent ? (xarelto, etc) will d/c oncologist at [facility] no evidence DVT on dopplers (3) Acute diastolic (congestive) heart failure: volume overloaded on exam today lasix 20mg x 1 intravenously check echo (4) Adenocarcinoma of pancreas: ?liver lesions on recent CTA chest will obtain dedicated CT with IV contrast of abd & pelvis today follows with [facility] currently undergoing chemo under their care (5) Stage III chronic kidney disease: Cr stable BMP am (6) Hypertension: controlled cont norvasc hold HCTZ cont metoprolol (7) Diabetic nephropathy: noted CKD stage 3 (8) Uncontrolled type 2 diabetes mellitus with kidney complication, with long- term current use of insulin: pharmacy providing glycemic management recommendations (9) Hypothyroidism: TSH is high will recommend increase in synthroid to 50mcg daily repeat TSH 6 weeks (10) Morbid obesity with BMI of 40.0-44.9, adult: BMI 43.7 Admission and Anticipated Discharge Date Admission Date: May 19, 2020 Subjective patient still requiring NC O2 no dyspnea at rest but has KING denies chest pain or chest tightness mild cough no sputum good appetite has had lovenox injections in the past and is comfortable with them tele stable overnight Review of Systems Constitutional: no fever Respiratory: no hemoptysis Cardiovascular: + edema Gastrointestinal: no abdominal pain Physical Exam Constitutional: + obese; no acute distress and no altered mental status ENMT: external ear and nose normal, oropharynx normal Neck: trachea midline, no thyromegaly Respiratory: no respiratory distress Auscultation: + crackles Cardiovascular: Rate/Rhythm: regular rate and regular rhythm Heart Sounds: normal S1 and normal S2; no murmur Vessels: + JVD, posterior tibial pulses present and dorsalis pedis pulses present Extremities: + edema (1+ b/l ) Gastrointestinal (Abdomen): normal bowel sounds, soft, nontender, no hepatosplenomegaly Psychiatric: A+Ox3, euthymic affect Results & Data Results & Data ([facility]) Vital Signs (Past 12 Hours) Vital Signs Temp Pulse Resp BP BP Pulse Ox 05/21/20 07:41 36.6 C 73 19 136/76 93 05/21/20 04:14 36.7 C 72 21 147/88 H 91 05/21/20 00:24 36.5 C 69 21 141/61 H 91 Laboratory Results Laboratory Results - last 24 hr 05/21/20 05/21/20 05/21/20 07:32 08:59 11:15 Sodium 141 Potassium 4.4 Chloride 108 H Carbon Dioxide 25 Anion Gap 8.0 BUN 22 H Creatinine 1.33 H Est Cr Clr Drug Dosing 42.6 Est GFR ( Amer) 44.6 Est GFR (Non-Af Amer) 38.5 BUN/Creatinine Ratio 16.7 Glucose 186 H POC Glucose 128 H 152 H Calcium 8.7 Specimen Hemolysis 05/21/20 05/21/20 16:31 21:04 Sodium Potassium Chloride Carbon Dioxide Anion Gap BUN Creatinine Est Cr Clr Drug Dosing Est GFR ( Amer) Est GFR (Non-Af Amer) BUN/Creatinine Ratio Glucose POC Glucose 152 H 181 H Calcium Specimen Hemolysis PG Care Time/CCT Total # of Minutes Spent Total Time Spent with Patient: Total time spent is greater than 50% in coordination of care (as documented) at patient's floor/unit and/or counseling patient: Coding Level of Care Code 92089 Subseq Hosp Care Lvl 3 Diagnoses Acute respiratory failure with hypoxia J96.01 Pulmonary embolism on right I26.99 Acute diastolic (congestive) heart failure I50.31 Adenocarcinoma of pancreas C25.9 Stage III chronic kidney disease N18.3 Hypertension I10 Diabetic nephropathy E11.21 Uncontrolled type 2 diabetes mellitus with kidney complication, with long-term current use of insulin E11.29; E11.65; Z79.4 Hypothyroidism E03.9 Morbid obesity with BMI of 40.0-44.9, adult E66.01; Z68.41
[2020-05-21] MEDS ORDERED: FUROSEMIDE 20 MG in SYRINGE 0 ML IV ONE (11:00)
--- NOTE | 2020-05-21 12:05 | Pharmacy Report ---
Pharmacy Glycemic Short Note 2 - Date of Service May 21, 2020 - Glycemic Short BSG Results (Last 24 hours): 05/20/20 05/20/20 05/21/20 16:34 20:05 07:32 Glucose POC Glucose 226 H 236 H 128 H 05/21/20 05/21/20 08:59 11:15 Glucose 186 H POC Glucose 152 H OUTPATIENT ANTIDIABETIC REGIMEN (per patient report): * Lantus 40 units SQ BID * Humalog 10-12 units with each meal * A1c = 8.6% 05/19/20 ASSESSMENT: 05/21 * 72 units insulin administered over the last 24 hrs (patient was tolerating a diet) * Fasting BSG 128 this AM with 40 units basal insulin on board, and after receiving 7 units Novolog correction last evening * Post-prandial BSGs did climb during the day yesterday, however this may have been due to a basal insulin deficiency as her AM dose Lantus held and reduced dose given with lunch. Given out-pt regimen provided a total daily dose of ~110 units, there is room to increase the prandial insulin dose at this time given the basal insulin dose is being reduced. 05/20 * Type 2 diabetic admitted to [facility] for distal R main PE * Patient reports being compliant with out-pt regimen and very rarely experiences a low with the current regimen. She does however report having a more carb restricted diet while hospitalized. * Fasting BSG 97 this AM with 70 units of basal insulin on board - will reduce Lantus doses and use dosing scale to lessen hypoglycemia risk * Novolog doses are reasonable to continue at this time, doses are consistent w/ "moderate" stress level based upon weight. Her outpt regimen was heavily weighted basal. May need to transition more insulin into prandial regimen with time, however she has a relatively higher basal insulin dose on board at this time. PLAN FOR INPATIENT GLYCEMIC CONTROL: * Basal insulin * Lantus SQ BID per scale: 0 units if less than 110, 20 units if 110-140, 25 units if 141-200, 30 units if greater than 200 * Bolus insulin * NovoLog per scale ACHS or Q6hrs while NPO * Goal Range: Low 110 mg/dL - High 140 mg/dL * Correction Factor: 18 mg/dL/unit * Nutritional / Prandial insulin per carb ratio of 1 unit per 6 grams CHO consumed PLAN FOR DISCHARGE: * A1c of 8.6 is above goal for many patients, however goals need to be individualized. Given patient's chemotherapy and changes in eating habits it may be difficult to achieve lower A1c without a higher risk of hypoglycemia.
--- NOTE | 2020-05-21 12:29 | Billing Data ---
Date of Service May 19, 2020 Coding Level of Care Code 58873 Initial Inpt Care Lvl 3 Time Spent (min) 55
--- NOTE | 2020-05-21 18:31 | XCELERA ---
[id number] [id number]
[2020-05-21] MEDS: ATORVASTATIN 40 MG TAB PO SCH (20:01)
[2020-05-21] MEDS ORDERED: OPTIRAY 320 125ml IV PRN (20:21)
--- NOTE | 2020-05-21 20:48 | CT Scan Report ---
CT abd pelvis IV con only CLINICAL HISTORY: pancreatic ca; eval for mets COMPARISON STUDY: December 25, 2019 TECHNIQUE: The patient was scanned in a dynamic helical fashion during intravenous administration of 94 cc of Optiray 320. A dose lowering technique was utilized adhering to the principles of ALARA. CT DOSE: 1444.85 mGy.cm FINDINGS: Lower chest: There are mild basilar atelectatic changes Liver: There are several new capsular-based hepatic hypodense lesions which approaches water attenuat ion. Diagnostic considerations include interval development of hepatic cysts, small abscesses, or low density metastatic deposits. An MRI might be of benefit for further characterization. Gallbladder: Surgically absent Spleen: Surgically absent Pancreas: The patient is status post a partial pancreatectomy. Adrenal glands: Unremarkable. Kidneys: There is a right renal staghorn calculus. There are bilateral renal cysts including an upper pole cyst on the left measuring 6 cm Bowel: There are no transition zones indicate bowel obstruction. There is extensive sigmoid diverticu losis. There are no acute peridiverticular inflammatory changes. There is no evidence of acute append icitis. Peritoneum: There is a 3.5 x 2 x 2 cm low-density soft tissue nodule abutting the lateral aspect of t he stomach. This could represent a peritoneal implant or be secondary to the prior inflammation in th is region. Vasculature: The abdominal aorta is normal in course and caliber. Adenopathy: None. Pelvic viscera: The bladder, and pelvic viscera are unremarkable. Skeletal structures: No destructive osseous lesions are seen. IMPRESSION: 1. Postsurgical changes of a partial pancreatectomy, cholecystectomy, and splenectomy. 2. Right renal staghorn calculus. No evidence of hydronephrosis 3. No evidence of bowel obstruction. No evidence of free air 4. 3.5 x 2 x 2 cm low-density peritoneal soft tissue nodule abutting the lateral aspect of the stomac h. This could represent a peritoneal implant, or represent sequela of infection given the prior infla mmatory changes in this region. Careful attention to this is recommended on follow-up imaging 5. Interval development of multiple low density peripheral and periportal hepatic hypodense lesions. Diagnostic considerations include low density metastatic deposits, multiple abscesses, or cystic hepa tic lesions. A dedicated hepatic MRI might be of benefit for further characterization. ACT 112: Negative or not required by law. Electronically signed by: Rogelio Álvarez M.D. 05/21/2020 8:47 PM
[2020-05-21] MEDS: POLYETHYLENE (MIRALAX) 17 GM PACK PO PRN (21:08)
[2020-05-21] MEDS ORDERED: SODIUM CHLORIDE 0.65% NA SOLN 45 ML (OCEAN) ONE (21:30)
[2020-05-21] MEDS: LORATADINE 10 MG TAB PO SCH (22:36)
[2020-05-21] MEDS: FLUTICASONE PROPIONATE NA SPR 16 GM BTL SCH (22:36)
[2020-05-22] MEDS ORDERED: LEVOTHYROXINE SODIUM 50 MCG TABLET PO SCH (06:30)
[2020-05-22 07:10] LABS: BUN Creatinine Ratio 17.7 (10-20); Calcium 8.6 mg/dl (8.5-10.1); Creatinine Clr Calc Pharmacy 36.5 ml/min; Est GFR (African American) 36.8; Est GFR (Non-African American) 31.7
[2020-05-22 07:22] LABS: Hematocrit (blood only) 34.6 % (37-47); Hemoglobin 11.4 g/dL (12.0-16.0); Mean Corpuscular Hemoglobin 30.5 pg (25-34); Mean Corpuscular Hgb Conc 32.9 g/dL (32-36); Mean Corpuscular Volume 92.5 fL (80-100); Nucleated RBC # (auto) 0.96 K/uL (0-0); Nucleated RBC % (auto) 8.3 %; Platelet Count 203 K/uL (130-400); RDW Coefficient of Variation 28.6 % (11.5-14.5); RDW Standard Deviation 88.3 fL (36.4-46.3); Red Blood Count 3.74 M/uL (4.2-5.4); White Blood Count 11.62 K/uL (4.8-10.8)
[2020-05-22 07:23] LABS: Platelet Estimate Normal (Normal)
[2020-05-22] MEDS: INSULIN ASPART 100 UNITS/ML 3 ML PEN SC SCH ×3 (08:22→16:36)
[2020-05-22] MEDS: ENOXAPARIN INJ 120 MG/0.8 ML SYR SC SCH (08:24)
[2020-05-22] MEDS: LORATADINE 10 MG TAB PO SCH (08:26)
[2020-05-22] MEDS: FLUTICASONE PROPIONATE NA SPR 16 GM BTL SCH (08:27)
[2020-05-22] MEDS: ASPIRIN 81 MG ECTAB PO SCH (08:27)
[2020-05-22] MEDS: INSULIN GLARGINE SOLOSTAR 100 UNITS/ML 3 ML PEN SC SCH (08:27)
[2020-05-22] MEDS: AMLODIPINE BESYLATE 5 MG TAB PO SCH (08:29)
[2020-05-22] MEDS: METOPROLOL TARTRATE 50 MG TAB PO SCH (08:29)
--- NOTE | 2020-05-22 13:53 | Pharmacy Report ---
Pharmacy Glycemic Short Note 2 - Date of Service May 22, 2020 - Glycemic Short BSG Results (Last 24 hours): 05/21/20 05/21/20 05/22/20 16:31 21:04 06:03 Glucose 135 H POC Glucose 152 H 181 H 05/22/20 05/22/20 07:16 11:09 Glucose POC Glucose 167 H 184 H OUTPATIENT ANTIDIABETIC REGIMEN (per patient report): * Lantus 40 units SQ BID * Humalog 10-12 units with each meal * A1c = 8.6% 05/19/20 ASSESSMENT: 05/22: * 79 units insulin administered over the last 24 hrs (patient was tolerating a diet) * Fasting BSG remains adequate, if trending upwards slightly. Lantus scale accounted for this. * Post prandial BSGs somewhat elevated, will conservatively tighten CR. This may need to be tightened further. 05/21 * 72 units insulin administered over the last 24 hrs (patient was tolerating a diet) * Fasting BSG 128 this AM with 40 units basal insulin on board, and after receiving 7 units Novolog correction last evening * Post-prandial BSGs did climb during the day yesterday, however this may have been due to a basal insulin deficiency as her AM dose Lantus held and reduced dose given with lunch. Given out-pt regimen provided a total daily dose of ~110 units, there is room to increase the prandial insulin dose at this time given the basal insulin dose is being reduced. 05/20 * Type 2 diabetic admitted to [facility] for distal R main PE * Patient reports being compliant with out-pt regimen and very rarely experiences a low with the current regimen. She does however report having a more carb restricted diet while hospitalized. * Fasting BSG 97 this AM with 70 units of basal insulin on board - will reduce Lantus doses and use dosing scale to lessen hypoglycemia risk * Novolog doses are reasonable to continue at this time, doses are consistent w/ "moderate" stress level based upon weight. Her outpt regimen was heavily weighted basal. May need to transition more insulin into prandial regimen with time, however she has a relatively higher basal insulin dose on board at this time. PLAN FOR INPATIENT GLYCEMIC CONTROL: * Basal insulin * Lantus SQ BID per scale: 0 units if less than 110, 20 units if 110-130, 25 units if 131-200, 30 units if greater than 200 * Bolus insulin * NovoLog per scale ACHS or Q6hrs while NPO * Goal Range: Low 110 mg/dL - High 140 mg/dL * Correction Factor: 18 mg/dL/unit * Nutritional / Prandial insulin per carb ratio of 1 unit per 5 grams CHO consumed PLAN FOR DISCHARGE: * A1c of 8.6 is above goal for many patients, however goals need to be individualized. Given patient's chemotherapy and changes in eating habits it may be difficult to achieve lower A1c without a higher risk of hypoglycemia.
--- NOTE | 2020-05-22 17:39 | Discharge Summary ---
Date of Service date of admission - May 19, 2020 date of discharge - May 22, 2020 Admission HPI Per Admitting Provider Patient is a 75 year old female with PMHx Pancreatic cancer s/p distal pancreatectomy 12/10/19, splenectomy, HTN, DM2, Hypothyroidism, CKD III, who presents with 2 weeks of worsening shortness of breath, fatigue, and KING. Patient notes that for the past 2 weeks she has had increasingly worsening shortness of breath and fatigue, and that anytime she would bring it up it was noted that it was likely secondary to her chemotherapy. Patient notes that she has had 7 treatments of chemotherapy since her pancreatic resection, she gets treatments once a week x3 weeks and then has a break. She is currently on her break from chemotherapy. Also of note, patient states that roughly 5-6 weeks ago she began having worsening swelling in her legs L>R and that she was also having redness and pain in her thighs respectively. She notes that she currently has some epigastric tightness that worsens with deep inhalation, KING, orthopnea, and bilateral calf tenderness and swelling L > R. She denies any fever, chills, chest pain, abdominal pain, diarrhea, dysuria, headache, visual changes. Social Hx: Does not use tobacco, alcohol, or illicit drugs Patient is a DNR/DNI. Principal Diagnosis 1. extensive Pulmonary emboli 2. acute hypoxic respiratory failure 2nd to #1 Discharge Exam Constitutional + obese; no acute distress and no altered mental status ENMT external ear and nose normal, oropharynx normal Neck trachea midline, no thyromegaly Respiratory no respiratory distress Auscultation: + diminished lung sounds (Bases); no crackles and no wheezes Cardiovascular Rate/Rhythm: regular rate and regular rhythm Heart Sounds: normal S1 and normal S2; no murmur Vessels: posterior tibial pulses present and dorsalis pedis pulses present; no JVD Extremities: + edema (1+ b/l ) Gastrointestinal (Abdomen) normal bowel sounds, soft, nontender, no hepatosplenomegaly Psychiatric A+Ox3, euthymic affect Discharge Data Allergies Allergy/AdvReac Type Severity Reaction Status Date / Time Sulfa (Sulfonamide Allergy Mild "SULFA Verified 05/19/20 16:15 Antibiotics) DRUGS"-HIVES Consultations PT, OT Respiratory for 2-step oxygen test Before School Ordered Studies 05/19/20 15:44 CT angio chest PE protocol Stat IMPRESSION: 1. Extensive right-sided pulmonary emboli as above. 2. Diffuse intralobular septal thickening and diffuse peribronchial thickening suggest a component of congestive failure. Clinical correlation will be required. 3. Trace left pleural effusion. 4. There is no airspace consolidation typical for pneumonia. 5. There is abnormal right perihilar soft tissue, some of which may represent hilar adenopathy. An infiltrative soft tissue lesion/neoplasm is not excluded. Attention at follow-up is recommended. 6. There is an enlarged subcarinal lymph node. 7. There are abnormal findings in the liver which represents a change from 12/25/2019. Additionally, there is a small residual collection or tract identified in the left upper quadrant. Follow-up with a contrast enhanced abdominal CT is recommended when the patient is clinically able. 05/19/20 20:22 US venous doppler LE BI Urgent - negative for DVT 05/21/20 18:59 CT abd pelvis IV con only Routine IMPRESSION: 1. Postsurgical changes of a partial pancreatectomy, cholecystectomy, and splenectomy. 2. Right renal staghorn calculus. No evidence of hydronephrosis. 3. No evidence of bowel obstruction. No evidence of free air. 4. 3.5 x 2 x 2 cm low-density peritoneal soft tissue nodule abutting the lateral aspect of the stomach. This could represent a peritoneal implant, or represent sequela of infection given the prior inflammatory changes in this region. Careful attention to this is recommended on follow-up imaging. 5. Interval development of multiple low density peripheral and periportal hepatic hypodense lesions. Diagnostic considerations include low density metastatic deposits, multiple abscesses, or cystic hepatic lesions. A dedicated hepatic MRI might be of benefit for further characterization. Echocardiogram: * poor image quality * EF 60-65% * borderline RV enlargement Hospital Course (1) Acute respiratory failure with hypoxia: 2nd to extensive right-sided PEs along with acute diastolic CHF. Required NC O2 her entire stay. 2-step oxygen test on day of discharge revealed ongoing need for 2 L NC O2 at ALL TIMES (at rest, and with ambulation). (2) Pulmonary embolism on right: Provoked - in setting of pancreatic cancer. Extensive clot in right lung as detailed in CTA report in this discharge summary. Initially was treated with lovenox 1mg/kg BID. No evidence of any residual DVT on venous dopplers of legs. After speaking with her primary oncologist at [facility] a decision was made to stop the lovenox and transition to eliquis. Thus, she will take eliquis 10mg BID x 7 days, then 5mg BID thereafter. This will be life-long therapy. (3) Acute diastolic (congestive) heart failure: Patient had mild volume overload clinically and radiographically. She received some diuresis. Echo with preserved EF. At discharge her volume status seemed euvolemic. (4) Adenocarcinoma of pancreas: 12/2019 s/p partial pancreatectomy and splenectomy. Unfortunately CT chest/abd/pelvis is very worrisome for metastatic disease in the liver, peritoneum, and possibly the lungs (see CT reports). Follows with [facility] - [place] - Dr Isabell Chi. Dr Chi was made aware of her hospitalization, VTE, and the concern for metastatic disease and will be seeing the patient on 05/27/20. He is currently coordinating her chemotherapy regimen. On day of discharge the patient and her daughter were extensively counseled about the CT findings. They were reassured that Dr Chi was kept abreast of these discoveries. (5) Stage III chronic kidney disease: Cr 1.2 to 1.5 during the stay (6) Hypertension: controlled during the visit. She will continue amlodipine and metoprolol but HOLD her HCTZ as her BPs were controlled without it. (7) Diabetic nephropathy: CKD stage 3 discharge Cr 1.5 baseline about 1.2/1.3 (8) Uncontrolled type 2 diabetes mellitus with kidney complication, with long- term current use of insulin: pharmacy provided glycemic management recommendations during the stay. she will continue twice daily lantus and humalog with meals at discharge. (9) Hypothyroidism: TSH was mildly high at 6. recommended increase in synthroid to 50mcg daily. repeat TSH 6 weeks. (10) Morbid obesity with BMI of 40.0-44.9, adult: BMI 44 Total Time Total Time Spent Total Time Spent (In Minutes): 45 Total Time Includes: Examination of the Patient, Discharge Planning, Medication Reconciliation and Communication With Other Providers Discharge Plan Discharge Items Patient Disposition: Home - Home Health Services Reason For Visit: pulmonary emboli Discharge Diagnosis: pulmonary emboli (blood clots in lungs) Activity: As commented below Activity Comment: as tolerated Non-emergency contact: Primary Care Provider and Oncologist Call non-emergency contact if: you have any medication questions, your symptoms worsen and you have a fever Follow-up/Referrals: Dinora Torre MD [Physician] - (see Dr Torre as new patient - 1-2 weeks if possible) Isabell Chi MD [Hospitalist] - 05/27/20 8:30 am Diet: Carb Consistent or DM2 and Heart Healthy Addtl Attending Provider Instructions: You were admitted to the hospital for shortness of breath. We discovered blood clots in your right lung ("pulmonary emboli"). These typically originate in the legs and then travel to the lungs. You do not have any residual clots in your legs. The blood clots did not affect your heart function -- your heart ultrasound (echo) was normal. You will need oxygen at home, 2 liters continuously including while sleeping. Please take your oxygen with you when you leave your home. The oxygen may be temporary. Your outpatient doctors can check periodically to see if you still need it. I spoke with Dr Chi and he approved the use of oral blood thinners to treat your blood clots and prevent new ones from forming. Your blood thinner is eliquis. Take as follows -- STARTING TONIGHT about 8pm take 2 tablets (each tablet is 5mg) twice daily for SEVEN (7) days, then decrease to 5mg twice daily thereafter. You will need to get refills from Dr Chi or your family doctor. You will take this medication indefinitely. Again -- 2 tabs twice daily x 7 days, then 1 tablet twice daily thereafter. We checked your thyroid level and it appears you need an increase in your thyroid medication. We increased the thyroid medication to 50mcg once daily. New script sent to your pharmacy. Have your thyroid level rechecked in about 6 weeks. I discussed your CAT scan results with Dr Chi and he will also receive a copy of all of your test results. Please note that we have discontinued several medications including - * lisinopril * hydrochlorothiazide * aspirin Your family doctor can resume 1 or more medications if your blood pressure needs them. Follow-up - see separate section Return to [facility] if - * you have fever over 100.4 degrees * you have worsening shortness of breath * you have chest pain * you have bleeding from any location * any other concerns Addtl [employer] Worker Provider Instructions: Medication Instructions: Your condition (pulmonary emboli) is typically treated with an anticoagulant. Anticoagulants will thin your blood to help prevent new clots. Your blood thinner is ELIQUIS. * You should take her medication exactly as directed. * Never skip a dose. * Never take a double dose. If you miss a dose, take it as soon as you remember. Call your Primary Care doctor if you experience any of the following: * Swelling or Pain in your leg * Sudden, continuous pain deep in a muscle * Pain that worsens when you are active or when you stand still for a long time * Chest Pain * Sudden Shortness of Breath * Rapid or pounding heart beat * Fainting * Dizziness * Cough with blood or bloody sputum * Sweating more than normal * Bruises * Heavy or uncontrolled bleeding * Blood in your urine, stool or vomit * Black or tarry stools * Severe nose bleeding Caring for Your Self at Home: * Avoid sitting, standing or lying down for long periods without moving your legs and feet * When traveling by car, stop to get out and move around at least once every 3 hours * On long airplane, train or bus rides, get up and move around when possible * If you can't get up, wiggle your toes and tighten your calves to keep your blood moving Pending Studies at Discharge: No Stand-Alone Forms: My [facility] CBA PHARMA, Smoking Cessation Medications and DC Order Prescriptions: New (DME) Oxygen Home Liters Per Minute See Rx Instructions .ROUTE .MEDSUPPLY Qty: 1 RF: 5 levothyroxine [Synthroid] 50 mcg Tablet 50 mcg PO DAILYBB Qty: 30 RF: 5 Eliquis 5 mg Tablet 5 mg PO DIRECTED Qty: 74 RF: 0 Continued (DME) pen needle, diabetic [BD Ultra-Fine Josefina Pen Needle] 32 gauge x 5/32" needle See Rx Instructions .ROUTE .MEDSUPPLY Qty: 400 RF: 3 atorvastatin 80 mg tablet 80 mg PO HS Qty: 90 RF: 0 metoprolol tartrate 50 mg tablet 50 mg PO BID Qty: 180 RF: 0 acetaminophen 500 mg capsule 500 mg PO Q8H PRN (Reason: Pain) RF: 0 cyanocobalamin (vitamin B-12) 1,000 mcg capsule 1,000 mcg PO DAILY Qty: 30 RF: 0 cholecalciferol (vitamin D3) 2,000 unit tablet 2,000 units PO DAILY Qty: 30 RF: 0 polyethylene glycol 3350 [Miralax] 17 gram/dose Powder 17 g PO BID PRN (Reason: Constipation) RF: 0 amlodipine 5 mg tablet 5 mg PO DAILY RF: 0 Lantus U-100 Insulin 100 unit/mL Solution 40 unit SUBCUT BID RF: 0 insulin lispro [Humalog KwikPen Insulin] 100 unit/mL Insulin Pen 0 unit SUBCUT DIRECTED RF: 0 Discontinued hydrochlorothiazide 25 mg tablet 25 mg PO DAILY Qty: 90 RF: 1 lisinopril 10 mg tablet 10 mg PO QAM Qty: 90 RF: 1 aspirin [Adult Aspirin Regimen] 81 mg tablet,delayed release (DR/EC) 81 mg PO DAILY RF: 0 levothyroxine 25 mcg capsule See Rx Instructions .ROUTE .COMPLEX RF: 0 Discharge Orders: Discharge Order (Routine); Ordered 05/22/20 Ordered By: Alex Goodman/Other Patient Handouts: Managing Diabetes: The A1C Test Admission Data Admit Date/Time: 05/19/20 19:23 Attending Provider: Alex Ortiz Admit Provider: Gene Arambula Primary Care Provider: PCP,NO Other Providers: Marco Antonio Irizarry ; [facility],Home Healthcare Other Interventions: Discharge Summary Assessment (RN) Last Done: 05/22/20 15:46 DC Date/Time DO NOT enter until pt leaves facility: 05/22/20 18:30 Coding Level of Care Code D/C Day Management >30 mins Diagnoses Acute respiratory failure with hypoxia J96.01 Pulmonary embolism on right I26.99 Acute diastolic (congestive) heart failure I50.31 Adenocarcinoma of pancreas C25.9 Stage III chronic kidney disease N18.3 Hypertension I10 Diabetic nephropathy E11.21 Uncontrolled type 2 diabetes mellitus with kidney complication, with long-term current use of insulin E11.29; E11.65; Z79.4 Hypothyroidism E03.9 Morbid obesity with BMI of 40.0-44.9, adult E66.01; Z68.41
[2020-05-22] MEDS ORDERED: APIXABAN 5 MG TABLET PO SCH (21:00)
== END 2020-05-22 18:30 | disposition home health service (06) | DRG 175 ==
LOC: ED 13:30 → SUATTDRO 19:23 → 2E 19:23
DX: Z80.0 Family history of malignant neoplasm of digestive organs; Z80.42 Family history of malignant neoplasm of prostate; I26.94 Multiple subsegmental thrombotic pulmonary emboli without acute cor pulmonale; J96.01 Acute respiratory failure with hypoxia; Z80.41 Family history of malignant neoplasm of ovary; Z79.4 Long term (current) use of insulin; I50.31 Acute diastolic (congestive) heart failure; Z66 Do not resuscitate; E11.21 Type 2 diabetes mellitus with diabetic nephropathy; N18.3 Chronic kidney disease, stage 3 (moderate); C25.9 Malignant neoplasm of pancreas, unspecified; Z82.49 Family history of ischemic heart disease and other diseases of the circulatory system; E03.9 Hypothyroidism, unspecified; K76.9 Liver disease, unspecified; Z88.2 Allergy status to sulfonamides; Z79.82 Long term (current) use of aspirin; I12.9 Hypertensive chronic kidney disease with stage 1 through stage 4 chronic kidney disease, or unspecified chronic kidney disease; Z79.890 Hormone replacement therapy; Z90.81 Acquired absence of spleen; Z68.41 Body mass index [BMI] 40.0-44.9, adult; E11.22 Type 2 diabetes mellitus with diabetic chronic kidney disease; Z83.3 Family history of diabetes mellitus; E78.5 Hyperlipidemia, unspecified; Z79.899 Other long term (current) drug therapy; Z90.411 Acquired partial absence of pancreas; Z51.81 Encounter for therapeutic drug level monitoring; E66.01 Morbid (severe) obesity due to excess calories; R93.89 Abnormal findings on diagnostic imaging of other specified body structures; Z80.3 Family history of malignant neoplasm of breast

== ENCOUNTER 2020-11-01 02:03 | Inpatient (IN) ==
[2020-11-01] MEDS ORDERED: ONDANSETRON INJ 2 MG/ML 2 ML VIAL IV STA (02:19)
[2020-11-01] MEDS ORDERED: HYDROmorphone INJ 0.5 MG/0.5 ML SYR IV STA (02:19)
--- NOTE | 2020-11-01 02:27 | Emergency Department Note ---
History of Present Illness General Chief complaint: Abdominal Pain Stated complaint: ABDOMINAL PAIN, CANCER PATIENT Time Seen by Provider: 11/01/20 02:12 History of Present Illness Maximum Pain Intensity: 10 This 75-year-old with pancreatic cancer with mets that is terminal presents to t he ER complaining of worsening abdominal pain with nausea and feeling dehydrated Location: Abdomen Quality: Painful Severity: Moderate Duration: Past several days Timing: Started several days ago Context: Pain got worse and patient came in Modifying factors: better with nothing; worse with palpation Patient was recently switched to fentanyl patches. She states this is not helping. Patient states she is 6 months left to live. They are currently giving her palliative care. She is no longer receiving chemo. She states she might be going to radiation soon for palliative care. Patient is requesting pain meds and IV fluids. She declines a repeat CAT scan. Patient denies fevers, vomiting, diarrhea, flulike illness. Home Medications Medication Instructions Recorded Confirmed Type cholecalciferol (vitamin D3) 50 2,000 units PO DAILY #30 tab 10/09/19 10/20/20 Rx mcg (2,000 unit) tablet cyanocobalamin (vitamin B-12) 1,000 mcg PO DAILY #30 cap 10/09/19 10/20/20 Rx 1,000 mcg capsule BD Ultra-Fine Josefina Pen Needle 32 #400 ea NS 11/13/19 10/20/20 Rx gauge x 5/32" polyethylene glycol 3350 [Miralax] 17 g PO BID PRN 12/25/19 11/01/20 History amlodipine 5 mg tablet 5 mg PO DAILY #90 tab 06/02/20 10/20/20 Rx atorvastatin 80 mg tablet 80 mg PO HS #90 tab 06/02/20 10/20/20 Rx docusate sodium 100 mg tablet 100 mg PO BID #60 tab 06/02/20 10/20/20 Rx famotidine 20 mg tablet 20 mg PO DAILY #30 tab 06/02/20 10/20/20 Rx fexofenadine 180 mg tablet 180 mg PO DAILY #30 tab 06/02/20 10/20/20 Rx metoprolol tartrate 50 mg tablet 50 mg PO BID #180 tab 06/02/20 10/20/20 Rx lisinopril 10 mg tablet 10 mg PO QAM #90 tab 06/09/20 10/20/20 Rx apixaban 5 mg tablet 5 mg PO BID #60 tab 06/15/20 10/20/20 Rx insulin glargine 100 unit/mL (3 40 unit SUBCUT BID #75 ml 07/23/20 10/20/20 Rx mL) subcutaneous pen ondansetron 4 mg disintegrating 4 mg PO Q8H PRN #30 tab 08/21/20 11/01/20 Rx tablet insulin lispro 100 unit/mL See Rx Instructions SUBCUT TID ml 08/25/20 10/20/20 History subcutaneous pen levothyroxine 50 mcg tablet 50 mcg PO DAILYBB #90 tab 10/06/20 11/01/20 Rx lorazepam 0.5 mg tablet 0.5 mg PO BID PRN #30 tab 10/06/20 11/01/20 Rx sertraline 50 mg tablet 50 mg PO DAILY #30 tab 10/06/20 10/20/20 Rx hydrochlorothiazide 25 mg tablet 25 mg PO DAILY #90 tab 10/12/20 11/01/20 Rx hydrocodone 10 mg-acetaminophen See Rx Instructions PO Q6H PRN #90 10/20/20 11/01/20 Rx 325 mg tablet tab dicyclomine 10 mg PO .MID AFTERNOON PRN 11/01/20 11/01/20 History dicyclomine 10 mg PO BID 11/01/20 11/01/20 History tramadol 50 mg PO Q8 PRN 11/01/20 11/01/20 History Allergies Allergy/AdvReac Type Severity Reaction Status Date / Time Sulfa (Sulfonamide Allergy Mild "SULFA Verified 11/01/20 02:20 Antibiotics) DRUGS"-HIVES Past Med/Surg History Medical History (Updated 11/01/20 @ 03:23 by Jacy Rainey PA-C) Adenocarcinoma of pancreas Diverticulosis of colon History of adenomatous polyp of colon Hypertension Perforated sigmoid colon Renal colic on right side Right knee injury Right-sided thoracic back pain Stage III chronic kidney disease Surgical History History of section (02/05/12) History of colon surgery History of eye surgery History of partial pancreatectomy Hx of cholecystectomy Hx of hernia repair Hx of tonsillectomy Post-splenectomy S/P exploratory laparotomy Family History Father Myocardial infarction Mother Cardiac disorder Stroke Diabetes Gallbladder disease Hypertension Brother Cardiac disorder Diabetes Kidney disease Myocardial infarction Denies family history of Ovarian cancer Prostate cancer Breast cancer Colorectal cancer Social History Smoking Status: Never smoker Hx Alcohol Use: No Hx Substance Use: No Preferred Language: Estonian Communication Ability: Effective Beliefs That Will Affect Care: None marital status: Current Living Situation: Spouse and Family current occupational status: retired Feels Safe at Home: Yes caffeine: No Dental Care, Regularly: No Physical Activity Frequency: Daily Seatbelt Use: never Sunscreen Use: No Assistive Devices: Oxygen - Continuous Review of Systems A total of 10 systems reviewed and were otherwise negative Physical Exam Vital Signs Vital Signs - 24 hr 11/01/20 02:09 11/01/20 02:28 Temperature 36.7 C Temperature Source Oral Pulse Rate 66 Respiratory Rate 18 Respiratory Effort / Characteristics Non-Labored Spontaneous Respiratory Depth Normal Blood Pressure 180/81 H Blood Pressure Mean 114 Pulse Oximetry 93 Oxygen Delivery Method Room Air Room Air Sepsis Recent Fever Within 48 Hours No Sepsis New/Unexplained Change in Mental Status N/A Sepsis Action Taken by Nursing No Action Required VITALS: Vitals are noted on the nurse's note and reviewed by myself. Vital signs stable. GENERAL: Pleasant female who appears in pain SKIN: Capillary reflex less than 2 seconds. HEENT: Normocephalic. PERRLA. EOMI. Nares patent. Mucous membranes moist. Neck is supple without nuchal rigidity. HEART: Regular rate and rhythm LUNGS: Clear to auscultation bilaterally without wheezes, rales or rhonchi. No retractions or accessory muscle use. ABDOMEN: Positive bowel sounds x 4. Normal tympanic percussion. Soft, diffusely tender to palpation, without masses or organomegaly. Williamson sign negative. No guarding or rebound tenderness. No CVA tenderness MUSCULOSKELETAL: No gross musculoskeletal defects. NEURO: Patient was alert and oriented to person place and time. No focal neurological deficits. Course Administered Medications Discontinued Medications Hydromorphone HCl (Hydromorphone Inj 0.5 Mg/0.5 Ml Syr) 0.5 mg IV NOW STA Stop: 11/01/20 02:20 Last Admin: 11/01/20 02:31 Dose: 0.5 mg Documented by: [id number] Hydromorphone HCl (Hydromorphone Inj 1 Mg/Ml Syringe) 1 mg IV NOW STA Stop: 11/01/20 02:52 Last Admin: 11/01/20 02:55 Dose: 1 mg Documented by: [id number] Sodium Chloride (Nss) 500 mls @ 999 mls/hr IV .Q31M NAM Stop: 11/01/20 03:00 Last Infusion: 11/01/20 03:21 Dose: 0 mls/hr Documented by: [id number] Admin: 11/01/20 02:32 Dose: 999 mls/hr Documented by: [id number] Ondansetron HCl (Ondansetron Inj 2 Mg/Ml 2 Ml Vial) 4 mg IV NOW STA Stop: 11/01/20 02:20 Last Admin: 11/01/20 02:31 Dose: 4 mg Documented by: [id number] Medical Decision Making Medical Records Attestation: I reviewed the patient's medical records. Home Medications Current Medication List: was personally reviewed by me Laboratory Data Attestation: I reviewed the patient's lab results. Result diagrams: 11/01/20 02:28 11/01/20 02:28 Lab Results 11/01/20 11/01/20 Range/Units 02:28 02:28 WBC 10.16 (4.8-10.8) K/uL RBC 5.10 (4.2-5.4) M/uL Hgb 15.3 (12.0-16.0) g/dL Hct 45.9 (37-47) % MCV 90.0 (80-100) fL MCH 30.0 (25-34) pg MCHC 33.3 (32-36) g/dL RDW Std Deviation 72.3 H (36.4-46.3) fL RDW Coeff of Inés 22.4 H (11.5-14.5) % Plt Count 245 (130-400) K/uL MPV 12.1 H (7.4-10.4) fL Immature Gran % (Auto) 0.4 % Neut % (Auto) 64.1 % Lymph % (Auto) 19.3 % [place] % (Auto) 13.4 % Eos % (Auto) 2.4 % Baso % (Auto) 0.4 % Neut # (Auto) 6.52 H (1.4-6.5) K/uL Lymph # (Auto) 1.96 (1.2-3.4) K/uL [place] # (Auto) 1.36 H (0.11-0.59) K/uL Eos # (Auto) 0.24 (0-0.5) K/uL Baso # (Auto) 0.04 (0-0.2) K/uL Immature Gran # (Auto) 0.04 H (0.00-0.02) K/uL Giant Platelets 1+ Polychromasia 1+ Target Cells 1+ Lal-Shellman Bodies 1+ Acanthocytes (Spur) 1+ Sodium 139 (136-145) mmol/L Potassium 3.5 (3.5-5.1) mmol/L Chloride 103 (98-107) mmol/L Carbon Dioxide 30 (21-32) mmol/L Anion Gap 6.0 (3-11) BUN 21 H (7-18) mg/dl Creatinine 1.14 (0.6-1.2) mg/dl Est Cr Clr Drug Dosing 46.3 ml/min Est GFR ( Amer) 53.7 Est GFR (Non-Af Amer) 46.3 BUN/Creatinine Ratio 18.4 (10-20) Glucose 160 H (70-99) mg/dl Calcium 8.8 (8.5-10.1) mg/dl Total Bilirubin 0.5 (0.2-1) mg/dl AST 23 (15-37) U/L ALT 22 (12-78) U/L Alkaline Phosphatase 125 H (45-117) U/L Total Protein 7.3 (6.4-8.2) gm/dl Albumin 3.1 L (3.4-5.0) gm/dl Globulin 4.2 H (2.5-4.0) gm/dl Albumin/Globulin Ratio 0.7 L (0.9-2) Lipase 42 L (73-393) U/L Specimen Hemolysis MDM Narrative Prior records/ancillary studies reviewed. Triage Nursing notes reviewed. The patient's history was concerning for abdominal pain. Differential diagnosis: Etiologies such as progression of cancer, cancer pain, appendicitis, diverticulitis, PUD, biliary pathology, UTI, pancreatitis, obstruction, mesenteric ischemia, aortic pathology, infections, inflammatory bowel disease, renal colic, as well as others were entertained. Physical examination findings: As above. ER treatment provided: An order was placed for continuous cardiac monitoring. The monitor shows a rate of 60-100 with a sinus rhythm. Dilaudid, Zofran, IV fluids On reassessment the patient felt better. Diagnostics interpreted by me: The labs revealed no leukocytosis. Glucose 160 Imaging studies: CT from last visit was reviewed and shows progression of cancer CT OF THE ABDOMEN AND PELVIS WITH CONTRAST CLINICAL HISTORY: h/o pancreatic cancer, weight loss, upper abdominal pain. COMPARISON STUDY: CT of the abdomen and pelvis October 15, 2020 6:[address] of the abdomen and pelvis August 02, 2020. TECHNIQUE: Following IV administration of 94 mL of Optiray-320, axial images of the abdomen and pelvis were obtained from the lung bases to the proximal femurs. Images were reviewed in the axial, sagittal, and coronal planes. IV contrast was administered without complication. Automated exposure control was utilized for the study. A dose lowering technique was utilized adhering to the princip les of VANDANA. Oral contrast was administered. CT DOSE: 1574.52 mGy.cm FINDINGS: Imaged portions of the lower chest demonstrate stable subcarinal and hilar lymphadenopathy from earlier exams. This is benign given stability. However, a 1.8 cm pleural nodule within the medial right lower hemithorax and image 84 of 456 has increased in size since CT of August 02, 2020. An adjacent 1.1 cm pleural/subpleural nodule is new. Several left lower lobe pulmonary nodules measuring up to 7 mm are new since that exam as well. A 6 mm hypodense segment 7 hepatic lesion is unchanged. This is benign. A hypodense lesion within the lateral segment of the liver is also unchanged. There are postoperative findings consistent with distal pancreatectomy and splenectomy. Ill-defined soft tissue within the operative bed extending along the celiac axis and superior mesenteric artery has increased from earlier exam. There is occlusion at the portosplenic confluence. This is age indeterminate. Note is made of a 1.7 cm suspected implant along the stomach. Multiple smaller peritoneal/omental implants have increased since prior examination. There is no evidence for a bowel obstruction. No pneumatosis, free air or portal venous gas is present. Large calculi within the upper pole the right kidney are noted. There is no hydronephrosis. No ureteral calculi are present. Several renal cysts are noted. No suspicious lesions are identified within visualized skeletal structures. Colonic diverticulosis is noted without evidence for acute diverticulitis. The appendix is normal. IMPRESSION: 1. Findings consistent with progression of metastatic disease with increase in multiple peritoneal/omental implants since CT of August 02, 2020. Increase in infiltrative tumor extending along the celiac axis and superior mesenteric artery which could account for the patient's increasing pain. Status post distal pancreatectomy and splenectomy. Occlusion of the portosplenic confluence which is age indeterminate. 2. Increase in size of several pleural nodules within the right lower hemithorax which likely reflect pleural implants. A few new left lower lobe pulmonary nodules which are suspicious for metastases. 3. No bowel obstruction. 4. Right-sided nephrolithiasis. No ureteral calculi or hydronephrosis. ACT 112: Negative or not required by law. Electronically signed by: Roby Rios M.D. 10/15/2020 9:58 AM Consultation: A consultation was placed with Dr. Sanz. The case was discussed and diagnostics were reviewed. The patient was evaluated in the ER for further treatment. Per the patient's request I did speak to the son and all questions were answered. Exam and history seem consistent with abdominal pain most likely related to patient's pancreatic cancer metastases. Patient was offered CAT scan and declined. She is terminal. She is requesting to be transitioned to hospice care. Patient was still in severe amount of pain. She is agreeable to treatment plan of admission. Medicine was consulted. Family was made aware. By the evaluation outlined above emergent etiologies such as appendicitis, diverticulitis, PUD, biliary pathology, UTI, pancreatitis, mesenteric ischemia, aortic pathology, inflammatory bowel disease, renal colic, as well as others were deemed relatively unlikely. The pt informed about the findings as listed above. All questions were answered and pleased with the treatment. The chart was completed utilizing Sprout[employer] voice recognition software. Grammatical errors, random word insertions, pronoun errors, and incomplete sen tences are an occassional consequence of this system due to software limitations, ambient noise, and hardware issues. Any formal questions or concerns about the content, text, or information contained within the body of this dictation should be directly addressed to the physician assistant finance manager for clar ification. Impression & Plan Intractable abdominal pain, Metastasis from pancreatic cancer Discharge Plan Visit Data Chief Complaint: Abdominal Pain Stated Complaint: ABDOMINAL PAIN, CANCER PATIENT ED Provider: Velvet Coppola ED Midlevel Provider: Jacy Rainey Discharge Problem: Intractable abdominal pain, Metastasis from pancreatic cancer Patient Disposition: Being Evaluated by Hospitalist Condition: Fair Forms Stand Alone Forms: My [facility] Prescriptions Prescriptions: No Action (DME) pen needle, diabetic [BD Ultra-Fine Josefina Pen Needle] 32 gauge x 5/32" needle See Rx Instructions .ROUTE .MEDSUPPLY Qty: 400 RF: 3 Eliquis 5 mg tablet 5 mg PO BID Qty: 60 RF: 5 Lantus Solostar U-100 Insulin 100 unit/mL (3 mL) insulin pen 40 unit subcut BID Qty: 75 RF: 3 ondansetron 4 mg tablet,disintegrating 4 mg PO Q8H PRN (Reason: nausea and vomiting) Qty: 30 RF: 5 hydrochlorothiazide 25 mg tablet 25 mg PO DAILY Qty: 90 RF: 3 sertraline 50 mg tablet 50 mg PO DAILY Qty: 30 RF: 6 lorazepam 0.5 mg tablet 0.5 mg PO BID PRN (Reason: anxiety) Qty: 30 RF: 0 levothyroxine [Synthroid] 50 mcg tablet 50 mcg PO DAILYBB Qty: 90 RF: 3 hydrocodone-acetaminophen 10-325 mg tablet See Rx Instructions PO Q6H PRN (Reason: pain) Qty: 90 RF: 0 cyanocobalamin (vitamin B-12) 1,000 mcg capsule 1,000 mcg PO DAILY Qty: 30 RF: 0 cholecalciferol (vitamin D3) 2,000 unit tablet 2,000 units PO DAILY Qty: 30 RF: 0 famotidine [Pepcid] 20 mg tablet 20 mg PO DAILY Qty: 30 RF: 5 docusate sodium 100 mg tablet 100 mg PO BID Qty: 60 RF: 5 atorvastatin 80 mg tablet 80 mg PO HS Qty: 90 RF: 3 amlodipine 5 mg tablet 5 mg PO DAILY Qty: 90 RF: 3 metoprolol tartrate 50 mg tablet 50 mg PO BID Qty: 180 RF: 3 fexofenadine 180 mg tablet 180 mg PO DAILY Qty: 30 RF: 5 lisinopril 10 mg tablet 10 mg PO QAM Qty: 90 RF: 1 polyethylene glycol 3350 [Miralax] 17 gram/dose Powder 17 g PO BID PRN (Reason: Constipation) RF: 0 insulin lispro [Humalog KwikPen Insulin] 100 unit/mL insulin pen See Rx Instructions SUBCUT TID RF: 0 dicyclomine 10 mg capsule 10 mg PO BID RF: 0 dicyclomine 10 mg capsule 10 mg PO .MID AFTERNOON PRN (Reason: abdominal cramping) RF: 0 tramadol 50 mg tablet 50 mg PO Q8 PRN (Reason: Pain) RF: 0 Referrals Referrals: Amy Zuñiga CRNP [Primary Care Provider] -
[2020-11-01] MEDS ORDERED: SODIUM CHLORIDE 0.9% 500 ML IV SCH (02:30)
[2020-11-01 02:40] LABS: Basophils # (auto) 0.04 K/uL (0-0.2); Basophils % (auto) 0.4 %; Eosinophils # (auto) 0.24 K/uL (0-0.5); Eosinophils % (auto) 2.4 %; Hematocrit (blood only) 45.9 % (37-47); Hemoglobin 15.3 g/dL (12.0-16.0); Immature Granulocytes # (auto) 0.04 K/uL (0.00-0.02); Immature Granulocytes % (auto) 0.4 %; Lymphocytes # (auto) 1.96 K/uL (1.2-3.4); Lymphocytes % (auto) 19.3 %; Mean Corpuscular Hgb Conc 33.3 g/dL (32-36); Mean Platelet Volume 12.1 fL (7.4-10.4); Monocytes # (auto) 1.36 K/uL (0.11-0.59); Monocytes % (auto) 13.4 %; Neutrophils # (auto) 6.52 K/uL (1.4-6.5); Neutrophils % (auto) 64.1 %; Platelet Count 245 K/uL (130-400); RDW Coefficient of Variation 22.4 % (11.5-14.5); RDW Standard Deviation 72.3 fL (36.4-46.3); White Blood Count 10.16 K/uL (4.8-10.8)
[2020-11-01] MEDS ORDERED: HYDROmorphone INJ 1 MG/ML SYRINGE IV STA (02:51)
[2020-11-01 03:08] LABS: Acanthocytes 1+; Giant Platelets 1+; Howell-Jolly Bodies 1+; Polychromasia 1+; Target Cells 1+
[2020-11-01] MEDS ORDERED: fentaNYL citrate 100 MCG/2 ML VIAL IV STA (03:16)
[2020-11-01 03:21] LABS: Albumin Globulin Ratio 0.7 (0.9-2); Albumin Level 3.1 gm/dl (3.4-5.0); BUN Creatinine Ratio 18.4 (10-20); Bilirubin,Total 0.5 mg/dl (0.2-1); Calcium 8.8 mg/dl (8.5-10.1); Creatinine Clr Calc Pharmacy 46.3 ml/min; Est GFR (African American) 53.7; Est GFR (Non-African American) 46.3; Globulin 4.2 gm/dl (2.5-4.0); Potassium 3.5 mmol/L (3.5-5.1); Total Protein 7.3 gm/dl (6.4-8.2)
[2020-11-01] MEDS ORDERED: DROPERIDOL 5 MG/2 ML VIAL IV STA (03:30)
--- NOTE | 2020-11-01 03:44 | Emergency Department Note ---
ED Visit Note Pt seen and examined after discussed with the JOSH, please refer to her note for additional details. VS stable. Pt here due to worsening pain. Pt with known metastatic cancer and already taking some pain medication. VS stable. Pt doesn't feel comfortable going home with additional meds. Pt received multiple doses of pain medication in the ER without significant improvement. .
--- NOTE | 2020-11-01 04:40 | History & Physical Report ---
Date of Service November 01, 2020 Assessment & Plan (1) Intractable abdominal pain: INtractable abdominal pain Will double fentanyl patch to 50 micrograms with IV dilaudid for breakthrough pain Patient not actively pursing treatment, would likely benefit from hospice who can help manage pain meds at home perhaps fentanyl patch +roxanol for pain control Palliative care consult placed Does not appear to have a bowel obstruction or biliary obstruction as cause of her pain and will defer imaging based on her wishes. HTN Continuing home amlodipine VTE disease COntinuing home eliquis DMII Placed on sliding scale Will hold basal insulin for now based her description of recently decreased PO intake. DVT PPx: ELiquis F/E/N: REgular diet as tolerated DIspo: Admit for pain mangement discuss goals of care and possibly arrange hospice for patient DNR/DNI (2) Metastasis from pancreatic cancer: (3) Weight loss: (4) Anxiety: (5) Depression: (6) Stage III chronic kidney disease: (7) Pulmonary embolism on right: History of Present Illness Chief Complaint: Abdominal Pain Primary Care Provider: KATE Peters Stacie Lozano is a 75 year old man with a past medical history significant for metastatic prostate cancer who is not currently pursuing further curative treatment who is having severe abdominal pain. She has been having abdominal pain for some time, but had an appointment with a pipe bowls paint trimmer in [place] several days ago and started on a fentanyl patch. THe 25 microgram patch proved to be much more ineffective than the oxydone and tramadol she had taken previously and she has been in agony since. On presentation to ED patient declines any imaging studies and is just requesting IV pain medicine and fluid rehydration, tells me she hasn't been eating or drinking much of anything and has lost 30-40 pounds. VItals WNL apart from some mild bradycardi and hypotension, lab results singificant for no elevated white count, negative lipase COVID negative. Patient was given IV diluadid and fentanyl in ED. Allergies Allergy/AdvReac Type Severity Reaction Status Date / Time Sulfa (Sulfonamide Allergy Mild "SULFA Verified 11/01/20 02:20 Antibiotics) DRUGS"-HIVES Home Medications Medication Instructions Recorded Confirmed Type cholecalciferol (vitamin D3) 50 2,000 units PO DAILY #30 tab 10/09/19 11/01/20 Rx mcg (2,000 unit) tablet cyanocobalamin (vitamin B-12) 1,000 mcg PO DAILY #30 cap 10/09/19 11/01/20 Rx 1,000 mcg capsule BD Ultra-Fine Josefina Pen Needle 32 #400 ea NS 11/13/19 10/20/20 Rx gauge x 5/32" polyethylene glycol 3350 [Miralax] 17 g PO DAILY 12/25/19 11/01/20 History amlodipine 5 mg tablet 5 mg PO DAILY #90 tab 06/02/20 11/01/20 Rx atorvastatin 80 mg tablet 80 mg PO HS #90 tab 06/02/20 11/01/20 Rx lisinopril 10 mg tablet 10 mg PO QAM #90 tab 06/09/20 11/01/20 Rx apixaban 5 mg tablet 5 mg PO BID #60 tab 06/15/20 11/01/20 Rx insulin lispro 100 unit/mL See Rx Instructions SUBCUT TID ml 08/25/20 11/01/20 History subcutaneous pen lorazepam 0.5 mg tablet 0.5 mg PO BID PRN #30 tab 10/06/20 11/01/20 Rx sertraline 50 mg tablet 50 mg PO DAILY #30 tab 10/06/20 11/01/20 Rx hydrochlorothiazide 25 mg tablet 25 mg PO DAILY #90 tab 10/12/20 11/01/20 Rx hydrocodone 10 mg-acetaminophen See Rx Instructions PO Q6H PRN #90 10/20/20 11/01/20 Rx 325 mg tablet tab esomeprazole magnesium [Nexium] 40 mg PO DAILYBB 11/01/20 11/01/20 History famotidine 20 mg PO BID 11/01/20 11/01/20 History fexofenadine [Elle] 180 mg PO DAILY 11/01/20 11/01/20 History insulin glargine [Lantus Solostar 10 unit SUBCUT BIDM 11/01/20 11/01/20 History U-100 Insulin] levothyroxine 25 mcg PO DAILYBB 11/01/20 11/01/20 History metoprolol tartrate 50 mg PO QAM 11/01/20 11/01/20 History ondansetron 8 mg PO Q8H PRN 11/01/20 11/01/20 History Past Med/Surg History Medical History (Updated 11/03/20 @ 11:04 by Alex Ortiz) Adenocarcinoma of pancreas Diverticulosis of colon History of adenomatous polyp of colon Hypertension Palliative care encounter Perforated sigmoid colon Renal colic on right side Right knee injury Right-sided thoracic back pain Stage III chronic kidney disease Surgical History History of section (02/05/12) History of colon surgery History of eye surgery History of partial pancreatectomy Hx of cholecystectomy Hx of hernia repair Hx of tonsillectomy Post-splenectomy S/P exploratory laparotomy Family History Father Myocardial infarction Mother Cardiac disorder Stroke Diabetes Gallbladder disease Hypertension Brother Cardiac disorder Diabetes Kidney disease Myocardial infarction Denies family history of Ovarian cancer Prostate cancer Breast cancer Colorectal cancer Social History Smoking Status: Never smoker Do You Dip or Chew Tobacco: No; Hx Alcohol Use: No Hx Substance Use: No Preferred Language: Cook Islander Communication Ability: Effective Beliefs That Will Affect Care: None marital status: Current Living Situation: Spouse Current Living Situation Comment: and son current occupational status: retired Other Information That Helps Us Care for You: No Feels Safe at Home: Yes Safety Concerns: Feels Safe At This Time caffeine: No Dental Care, Regularly: No Physical Activity Frequency: Daily Seatbelt Use: never Sunscreen Use: No Assistive Devices: None Review of Systems Review of Systems: All systems reviewed & are unremarkable except as noted in HPI & below Physical Exam Constitutional: + acute distress, + ill appearing, + obese and cooperative; + uncomfortable Eyes: PERRL, conjunctivae normal, anicteric sclerae Neck: normal visual inspection Respiratory: normal respiratory effort, lungs clear to auscultation Cardiovascular: RRR, no murmur, no edema Gastrointestinal (Abdomen): Inspection/Auscultation: normal bowel sounds Percussion/Palpation: + abdomen tender (exquisitely tender, limited exam) and abdomen soft Results & Data Results & Data ([facility]) Vital Signs (Past 12 Hours) Vital Signs Temp Pulse Resp BP Pulse Ox 11/01/20 04:00 60 18 11/01/20 03:30 61 18 11/01/20 03:19 65 16 177/95 H 11/01/20 03:00 64 16 92 11/01/20 02:53 61 20 217/97 H 96 11/01/20 02:39 63 14 95 11/01/20 02:09 36.7 C 66 18 180/81 H 93 Code Status & VTE Plan VTE Prophylaxis Plan VTE Prophylaxis will be ordered: Yes Supervising Physician Co-Signing Physician Notes Attending addendum: I have physically seen this patient, have supervised the medical residents activities, and agree with the H&P unless as otherwise noted. Assessment and Plan: Intractable abdominal pain/metastatic pancreatic cancer- Increasing fentanyl patch from 25 to 50 mcg change every 3 days. Dilaudid 1 mg IV every 3 hours as needed breakthrough pain Consult palliative care Hypertension- Continue amlodipine with hold parameters Venous thromboembolic disease- Continue Eliquis Diabetes mellitus- Placed on Accu-Cheks before meals and at bedtime with NovoLog coverage per scale Remainder of orders and notations as noted
[2020-11-01] MEDS ORDERED: ONDANSETRON 8MG OD TAB PO PRN (05:26)
[2020-11-01] MEDS ORDERED: LORazepam 0.5 MG TAB PO PRN (05:26)
[2020-11-01] MEDS ORDERED: DEXTROSE 50% 50 ML SYRINGE IV PRN (05:26)
[2020-11-01] MEDS ORDERED: CARBOHYDRATES FOR HYPOGLYCEMIA PO PRN (05:26)
[2020-11-01] MEDS ORDERED: GLUCOSE 40% GEL 15 GM TUBE PO PRN (05:26)
[2020-11-01] MEDS ORDERED: GLUCOSE 10 TABS/TUBE PO PRN (05:26)
[2020-11-01] MEDS ORDERED: GLUCAGON FOR INJ 1 MG VIAL SQ PRN (05:26)
[2020-11-01] MEDS: fentaNYL 50 MCG/HR TDSY TD SCH (05:57)
[2020-11-01] MEDS: HYDROmorphone INJ 1 MG/ML SYRINGE IV PRN ×2 (05:58→10:00)
[2020-11-01] MEDS: LEVOTHYROXINE SODIUM 25 MCG TABLET PO SCH (05:59)
[2020-11-01] MEDS: PANTOprazole 40 MG TAB PO SCH (05:59)
[2020-11-01] MEDS ORDERED: hydroCHLOROthiazide 25 MG TAB PO SCH (09:00)
[2020-11-01] MEDS ORDERED: lisinopril 10 MG TAB PO SCH (09:00)
[2020-11-01] MEDS: APIXABAN 5 MG TABLET PO SCH ×2 (09:48→20:25)
[2020-11-01] MEDS: METOPROLOL TARTRATE 50 MG TAB PO SCH (09:48)
[2020-11-01] MEDS: POLYETHYLENE (MIRALAX) 17 GM PACK PO SCH (09:48)
[2020-11-01] MEDS: SERTRALINE HCL 50 MG TABLET PO SCH (09:48)
[2020-11-01] MEDS: CYANOCOBALAMIN 500 MCG TABLET (VITAMIN B-12) PO SCH (09:48)
[2020-11-01] MEDS: amLODIPine BESYLATE 5 MG TAB PO SCH (09:48)
[2020-11-01] MEDS: CHOLECALCIFEROL 1,000 UNITS 25 MCG TAB PO SCH (09:48)
[2020-11-01] MEDS: FEXOFENADINE HCL 180 MG TAB PO SCH (09:48)
[2020-11-01] MEDS: CHECK fentaNYL PATCH PLACEMENT SCH ×3 (09:49→22:56)
[2020-11-01] MEDS: INSULIN ASPART 100 UNITS/ML 3 ML PEN SC SCH ×4 (09:50→20:46)
[2020-11-01] MEDS: INSULIN GLARGINE SOLOSTAR 100 UNITS/ML 3 ML PEN SQ SCH ×2 (09:50→18:33)
[2020-11-01] MEDS: FAMOTIDINE 20 MG TAB PO SCH ×2 (10:00→20:45)
[2020-11-01] MEDS: HYDROmorphone INJ 2 MG/ML SYR/VIAL IV PRN ×3 (13:28→22:56)
--- NOTE | 2020-11-01 17:43 | History & Physical Bridge Note ---
Date of Service November 01, 2020 History & Physical Bridge Note Seen today. Still with some pain despite the 1 mg Dilaudid. Ordered higher dose. - At present time, she would like to be comfort care. She does not want further labs or tests. She understand that her cancer will be fatal and is accepting of that. - Discussed with palliative care who will see her tomorrow.
[2020-11-01] MEDS: ATORVASTATIN 40 MG TAB PO SCH (20:25)
[2020-11-02] MEDS: HYDROmorphone INJ 2 MG/ML SYR/VIAL IV PRN ×3 (03:51→13:06)
[2020-11-02] MEDS: PANTOprazole 40 MG TAB PO SCH (06:13)
[2020-11-02] MEDS: LEVOTHYROXINE SODIUM 25 MCG TABLET PO SCH (06:13)
[2020-11-02] MEDS: CHECK fentaNYL PATCH PLACEMENT SCH ×2 (08:18→15:25)
[2020-11-02] MEDS: POLYETHYLENE (MIRALAX) 17 GM PACK PO SCH (09:09)
[2020-11-02] MEDS: INSULIN ASPART 100 UNITS/ML 3 ML PEN SC SCH ×4 (09:10→22:07)
[2020-11-02] MEDS: INSULIN GLARGINE SOLOSTAR 100 UNITS/ML 3 ML PEN SQ SCH ×2 (09:11→18:30)
[2020-11-02] MEDS: CYANOCOBALAMIN 500 MCG TABLET (VITAMIN B-12) PO SCH (09:12)
[2020-11-02] MEDS: FEXOFENADINE HCL 180 MG TAB PO SCH (09:13)
[2020-11-02] MEDS: METOPROLOL TARTRATE 50 MG TAB PO SCH (09:13)
[2020-11-02] MEDS: APIXABAN 5 MG TABLET PO SCH ×2 (09:13→21:03)
[2020-11-02] MEDS: SERTRALINE HCL 50 MG TABLET PO SCH (09:14)
[2020-11-02] MEDS: amLODIPine BESYLATE 5 MG TAB PO SCH (09:14)
[2020-11-02] MEDS: CHOLECALCIFEROL 1,000 UNITS 25 MCG TAB PO SCH (09:14)
[2020-11-02] MEDS: FAMOTIDINE 20 MG TAB PO SCH ×2 (09:26→22:30)
--- NOTE | 2020-11-02 12:40 | Palliative Care Consultation ---
Date of Consultation November 02, 2020 Assessment & Plan (1) Palliative care encounter: This patient is an unfortunate individual who presented to the [facility] with intractable abdominal pain. She has metastatic pancreatic cancer and has been experiencing increased episodes of pain that she claims to be exacerbated by eating. A CT scan was performed and ruled out a small bowel obstruction. Her pain medications were adjusted in the emergency room. Palliative care was consulted for pain management. -This patient was being evaluated by Dr. Ortiz just prior to my entering the room. The patient was sitting upright in her bedside chair in no apparent distress. She has expressed that she no longer wants to receive any further aggressive treatment. Her daughter, Haydee would like to pursue some diagnostics and treatment options. The patient was to see radiation oncology tomorrow as an outpatient. We suggested this appointment occurs while she is inpatient, along with allowing us to convert her back to oral pain medications and ensure appropriate pain control. Dr. Lemons was able to see the patient this afternoon and the patient and daughter agreed to proceed with palliative radiation, for which a CT simulation would occur tomorrow, with palliative radiation beginning next week. -She recently started to see palliative care as an outpatient with [facility], under Dr. Wilkins's care and was started on a Fentanyl patch and Vicodin. She had started to receive IV Dilaudid here in the ED. She has received SIX doses of Dilaudid over the past 24 hours. -Converting this patients total narcotic use, she would require 60 mg of Hydrocodone daily PRN. I discontinued the IV Dilaudid and ordered Vicodin 10 mg PO Q4 PRN. I will keep her Fentanyl patch at 50mcg. I will evaluate her PRN use over the next 24 hours. -Discussion held with hospitalist about moving forward, considering evaluation with pain management for a possible celiac plexus block. We will continue to follow accordingly. (2) Intractable abdominal pain: (3) Metastasis from pancreatic cancer: (4) Anxiety: (5) Abdominal pain: History of Present Illness Reason for Consultation: Goals of care Requesting Physician: Dr. Ortiz Attending Physician: Alex Ortiz History of Present Illness This patient is an unfortunate individual who presented to the [facility] with intractable abdominal pain. She has metastatic pancreatic cancer and has been experiencing increased episodes of pain that she claims to be exacerbated by eating. A CT scan was performed and ruled out a small bowel obstruction. Her pain medications were adjusted in the emergency room. Palliative care was consulted for pain management. Please see A/P for further information. Thank you kindly for involving palliative care with this individual. Allergies Allergy/AdvReac Type Severity Reaction Status Date / Time Sulfa (Sulfonamide Allergy Mild "SULFA Verified 11/01/20 02:20 Antibiotics) DRUGS"-HIVES Home Medications Medication Instructions Recorded Confirmed Type cholecalciferol (vitamin D3) 50 2,000 units PO DAILY #30 tab 10/09/19 11/01/20 Rx mcg (2,000 unit) tablet cyanocobalamin (vitamin B-12) 1,000 mcg PO DAILY #30 cap 10/09/19 11/01/20 Rx 1,000 mcg capsule BD Ultra-Fine Josefina Pen Needle 32 #400 ea NS 11/13/19 10/20/20 Rx gauge x 5/32" polyethylene glycol 3350 [Miralax] 17 g PO DAILY 12/25/19 11/01/20 History amlodipine 5 mg tablet 5 mg PO DAILY #90 tab 06/02/20 11/01/20 Rx atorvastatin 80 mg tablet 80 mg PO HS #90 tab 06/02/20 11/01/20 Rx lisinopril 10 mg tablet 10 mg PO QAM #90 tab 06/09/20 11/01/20 Rx apixaban 5 mg tablet 5 mg PO BID #60 tab 06/15/20 11/01/20 Rx insulin lispro 100 unit/mL See Rx Instructions SUBCUT TID ml 08/25/20 11/01/20 History subcutaneous pen lorazepam 0.5 mg tablet 0.5 mg PO BID PRN #30 tab 10/06/20 11/01/20 Rx sertraline 50 mg tablet 50 mg PO DAILY #30 tab 10/06/20 11/01/20 Rx hydrochlorothiazide 25 mg tablet 25 mg PO DAILY #90 tab 10/12/20 11/01/20 Rx hydrocodone 10 mg-acetaminophen See Rx Instructions PO Q6H PRN #90 10/20/20 11/01/20 Rx 325 mg tablet tab esomeprazole magnesium [Nexium] 40 mg PO DAILYBB 11/01/20 11/01/20 History famotidine 20 mg PO BID 11/01/20 11/01/20 History fexofenadine [Elle] 180 mg PO DAILY 11/01/20 11/01/20 History insulin glargine [Lantus Solostar 10 unit SUBCUT BIDM 11/01/20 11/01/20 History U-100 Insulin] levothyroxine 25 mcg PO DAILYBB 11/01/20 11/01/20 History metoprolol tartrate 50 mg PO QAM 11/01/20 11/01/20 History ondansetron 8 mg PO Q8H PRN 11/01/20 11/01/20 History Patient History Medical History (Updated 11/02/20 @ 22:27 by KATE Dueñas) Adenocarcinoma of pancreas Diverticulosis of colon History of adenomatous polyp of colon Hypertension Palliative care encounter Perforated sigmoid colon Renal colic on right side Right knee injury Right-sided thoracic back pain Stage III chronic kidney disease Surgical History History of section (02/05/12) History of colon surgery History of eye surgery History of partial pancreatectomy Hx of cholecystectomy Hx of hernia repair Hx of tonsillectomy Post-splenectomy S/P exploratory laparotomy Family History Father Myocardial infarction Mother Cardiac disorder Stroke Diabetes Gallbladder disease Hypertension Brother Cardiac disorder Diabetes Kidney disease Myocardial infarction Denies family history of Ovarian cancer Prostate cancer Breast cancer Colorectal cancer Social History Smoking Status: Never smoker Do You Dip or Chew Tobacco: No; Hx Alcohol Use: No Hx Substance Use: No Preferred Language: Urdu Communication Ability: Effective Beliefs That Will Affect Care: None marital status: Current Living Situation: Spouse Current Living Situation Comment: and son current occupational status: retired Other Information That Helps Us Care for You: No Feels Safe at Home: Yes Safety Concerns: Feels Safe At This Time caffeine: No Dental Care, Regularly: No Physical Activity Frequency: Daily Seatbelt Use: never Sunscreen Use: No Assistive Devices: Glasses Review of Systems Review of Systems: All systems reviewed & are unremarkable except as noted in HPI & below Hope Symptom Assessment Scale - Revised Pain: 3/3 Tiredness: 0/3 SOB: 0/3 Anxiety: 0/3 Depression: 1/3 PPS: 30% Physical Exam Constitutional: cooperative and comfortable Respiratory: normal respiratory effort, lungs clear to auscultation Cardiovascular: RRR, no murmur, no edema Gastrointestinal (Abdomen): Percussion/Palpation: + abdomen tender, + guarding and abdomen soft Psychiatric: A+Ox3, euthymic affect Insight: good insight Judgement: good judgement Results & Data ([facility]) Vital Signs (Past 12 Hours) Vital Signs Temp Pulse Resp BP Pulse Ox 11/02/20 07:55 36.6 C 75 16 125/72 92 PG Care Time/CCT Total # of Minutes Spent Total Time Spent with Patient: Total time spent is greater than 50% in coordination of care (as documented) at patient's floor/unit and/or counseling patient: 100 Coding Level of Care Code 38662 Inpt Consult Level 4 Diagnoses Palliative care encounter Z51.5 Intractable abdominal pain R10.9 Metastasis from pancreatic cancer C79.9; C25.9 Anxiety F41.9 Abdominal pain R10.9 Time Spent (min) 100 Time Spent Midlevel Total time spent 100 minutes with > 50% of that time spent assessing the patient, discussing goals of care, providing pain management and collaborating with IDT.
--- NOTE | 2020-11-02 13:23 | Hospitalist Progress Note ---
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 Agree with fentanyl. Started last week. Palliative care consult appreciated; pain med recs appreciated. Will consult rad onc for palliative xrt. If all else fails could consider pain management referral for ?celiac block?? Cont eliquis for h/o PE and DVT prevention. Bowel regimen due to narcotics. No longer receiving chemo. Hold of on d/c today - needs improved pain control as above. Add carafate - uncertain if some pain is esophageal/gastric. Cont PPI. Care d/w palliative and rad onc extensively. 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 This includes certification that hospital inpatient services are reasonable and necessary and in the case of services not specified as inpatient-only under 42 CFR 419.22(n), that they are appropriately provided as inpatient services in accordance to with the 2-midnight benchmark under 43 CFR 412.3(e) Change observation status to full admission Admission and Anticipated Discharge Date Admission Date: November 01, 2020 Subjective pt reports "better night" with use of IV dilaudid much more comfortable able to eat breakfast, but it does cause abdominal pain sometimes right away no overt heartburn no vomiting no dyspnea or KING daughter wanting her released today to go to rad onc appt tomorrow - I explained we can ask rad onc to see her here also told patient we can't simply cut off dilaudid IV and send her home - pain won't be controlled Saw Dr Albert, palliative - in [place] recently no longer doing chemo for pancreatic ca Review of Systems Constitutional: no fever and no chills Respiratory: no cough and no dyspnea Cardiovascular: no chest pain Physical Exam Constitutional: no acute distress, not obese and no altered mental status ENMT: external ear and nose normal, oropharynx normal Respiratory: normal respiratory effort, lungs clear to auscultation no respiratory distress Auscultation: no diminished lung sounds Cardiovascular: Rate/Rhythm: regular rate and regular rhythm Heart Sounds: normal S1 and normal S2 Vessels: posterior tibial pulses present and dorsalis pedis pulses present; no JVD Gastrointestinal (Abdomen): Inspection/Auscultation: normal bowel sounds; abdomen not distended Percussion/Palpation: + abdomen tender (mild - epigas tric region ) and + hepatomegaly Psychiatric: A+Ox3, euthymic affect Results & Data Results & Data ([facility]) Vital Signs (Past 12 Hours) Vital Signs Temp Pulse Resp BP Pulse Ox 11/02/20 07:55 36.6 C 75 16 125/72 92 Laboratory Results cbc, bmp 11/01 wnl BSGs wnl PG Care Time/CCT Total # of Minutes Spent Total Time Spent with Patient: Total time spent is greater than 50% in coordination of care (as documented) at patient's floor/unit and/or counseling patient: Coding Level of Care Code 70739 Subseq Hosp Care Lvl 3 Diagnoses Intractable abdominal pain R10.9 Metastasis from pancreatic cancer C79.9; C25.9 Depression F32.9 Stage III chronic kidney disease N18.3 Pulmonary embolism on right I26.99 Uncontrolled type 2 diabetes mellitus with kidney complication, with long-term current use of insulin E11.29; E11.65; Z79.4 Hypothyroidism E03.9 Hyperlipidemia E78.5 Hypertension I10 Hypertension type: essential hypertension (1) Hypertension Hypertension type: essential hypertension Qualified Code(s): I10 - Essential (primary) hypertension
[2020-11-02] MEDS: SUCRALFATE 1 GM/10 ML UDC PO SCH ×3 (14:01→21:02)
--- NOTE | 2020-11-02 17:09 | Radiation OncologyConsultation ---
Date of Consultation November 02, 2020 Assessment & Plan (1) Intractable abdominal pain: The patient has evidence of progressive metastatic disease involving the celiac axis. She is having increased episodes of pain that are controlled with greater difficulty with pain medication. These are exacerbated by eating. I have suggested an option of palliative radiation to the area of metastatic disease. After discussion with the patient and with her daughter they have agreed to proceed with a course of palliative radiation. We will arrange for the patient to come down if possible tomorrow for CT simulation with palliative treatment to begin the first week of November. The patient is in much better control with adjustment of her pain medication and is presently asymptomatic. Present on Admission?: Yes (2) Metastasis from pancreatic cancer: (3) Adenocarcinoma of pancreas: History of Present Illness Reason for Consultation: Severe abdominal pain. Requesting Physician: Dr. Chi. Attending Physician: Alex Ortiz History of Present Illness Ms. Lozano is a 75-year-old female who presented with back pain and was thought to have renal issues. She was ultimately found to have a pancreatic carcinoma. 09/21/2019. Patient undergoes abdominal pelvic CT scan with IV contrast for complaint of acute generalized abdominal pain with bloody stools. This study showed an ill-defined area of decreased attenuation involving the pancreatic body measuring up to 4.4 cm that is suspicious for an underlying lesion such as a pancreatic adenocarcinoma. Correlation with endoscopy was recommended. 11/20/2019. Dr. Vidal performed an upper EUS for suspected mass of the pancreas on CT scan. There was no sign of significant endosonographic abnormalities in the ampulla or common bile duct. There was abnormal echogenicity in the visualized portion of the liver which was hyperechoic. An oval mass was identified in the pancreatic body that was hypoechoic measuring 3.8 x 2.8 cm. There was sonographic evidence suggesting invasion into the splenic artery and splenic vein FNA were taken with final cytology. This reportedly showed pancreatic carcinoma. 12/11/2019. Dr. Juan M Trujillo performed a distal subtotal pancreatectomy with splenectomy and pedicled intra-abdominal omental flap. This confirmed an invasive ductal adenocarcinoma the pancreas. 1 of 17 lymph nodes were positive. Her final stage was T3 N1 M0. The mass was in the body the pancreas measured 6.3 cm. 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 12/25/2019. Patient presented emergency department and was found to have intra- abdominal abscess post procedure. Patient was admitted and discharged on 12/28/2019. 12/25/2019. CT scan of the chest abdomen and pelvis performed. Examination of the pancreas shows a heterogeneous appearance of the pancreatic head with a surgical drain in place there was no evidence of liver metastasis. CT of the chest showed interval splenectomy and postoperative changes but no evidence of metastatic disease. 02/25/2020. Patient seen by Dr. Chi who recommended postoperative gemcitabine of 1000 mg/m with 3 weeks on and 1 week off every 28 days. 05/19/2020. Patient presented with shortness of breath fatigue and dyspnea. She was found to have a pulmonary embolism on the right and was admitted and treated. She was discharged on 05/22/2020. CT of the abdomen and pelvis showed a 3.5 x 2.0 x 2.0 cm low-density peritoneal soft tissue nodule that could represent a peritoneal implant. 06/04/2020. Patient has MRI of the liver and abdomen which confirmed small hepatic cyst and possible perigastric nodule. Right hilar and subcarinal lymphadenopathy was again noted and nonspecific. Patient had completed 3 cycles of chemotherapy 08/02/2020. Patient undergoes abdominal pelvic CT scan. This showed extensive sigmoid diverticulosis right-sided nephrolithiasis no bowel obstruction and status post distal pancreatic ectomy and splenectomy. There was a stable 2.1 cm nodule along the greater curvature of the stomach with additional smaller nodules and hypodensities along the capsule of the liver. Short-term follow-up was recommended. 08/19/2020. Patient undergoes PET CT scan. This showed no localized metabolic activity in the lung mediastinum hilar or axilla. There was interval decrease in the size of a fluid collection along the curvature of the stomach in addition a metabolically active mass had decreased with SUV of 2.1 with previous SUV of 6.3. There was no evidence of metastatic disease. 10/05/2020. Dr. Vidal performed an upper GI endoscopy. This showed diffuse mild inflammation characterized by edema and erythema of the entire examined stomach. Biopsies were taken. The examined duodenum was normal. Biopsy of the duodenum showed no pathologic abnormalities and biopsy of the stomach showed mild chronic inactive gastritis. Accession #: [id number]. 10/15/2020. Patient presented to the emergency department with complaint of severe abdominal pain. 10/15/2020. Patient undergoes CT scan of the abdomen pelvis without contrast for increasing right flank pain. This again showed diverticulosis with right- sided nephrolithiasis with no evidence of bowel obstruction and postsurgical changes. However multiple peritoneal nodules were noted suspicious for abdominal carcinomatosis. There was infiltration of the fat surrounding the pr oximal celiac and superior mesenteric artery suspicious for neoplastic involvement not seen previously. These findings were consistent with progression of metastatic disease with increase in multiple peritoneal/omental implants compared to the CT scan of 08/02/2020. There was increase in infiltrative tumor extending along the celiac axis and superior mesenteric artery which could account for the patient's increasing pain. There was increase in the size of several pleural nodules within the right lower hemithorax likely reflecting pleural implants. A few new left lower lobe pulmonary nodules are suspicious for metastasis. 11/01/2020. Patient seen the emergency department and ultimately admitted with complaint of severe intractable abdominal pain. 11/02/2020. Patient seen by radiation oncology for evaluation and discussion of the role of palliative radiation for pain control. 11/03/2020. Patient was scheduled by Dr. Chi to be seen as an outpatient for referral for pain control. This chart was completed in part utilizing [employer] Voice Recognition software. Grammatical errors, random word insertions, pronoun errors and incomplete sentences are occasional consequence of this system due to software limitations, ambient noise and hardware issues. Any formal questions or concerns about the content, text or information contained within the body of this dictation should be directly addressed to the provider for clarification. Boubacar Calero MD Department of Radiation Oncology [facility] Allergies Allergy/AdvReac Type Severity Reaction Status Date / Time Sulfa (Sulfonamide Allergy Mild "SULFA Verified 11/01/20 02:20 Antibiotics) DRUGS"-HIVES Home Medications Medication Instructions Recorded Confirmed Type cholecalciferol (vitamin D3) 50 2,000 units PO DAILY #30 tab 10/09/19 11/01/20 Rx mcg (2,000 unit) tablet cyanocobalamin (vitamin B-12) 1,000 mcg PO DAILY #30 cap 10/09/19 11/01/20 Rx 1,000 mcg capsule BD Ultra-Fine Josefina Pen Needle 32 #400 ea NS 11/13/19 10/20/20 Rx gauge x 5/32" polyethylene glycol 3350 [Miralax] 17 g PO DAILY 12/25/19 11/01/20 History amlodipine 5 mg tablet 5 mg PO DAILY #90 tab 06/02/20 11/01/20 Rx atorvastatin 80 mg tablet 80 mg PO HS #90 tab 06/02/20 11/01/20 Rx lisinopril 10 mg tablet 10 mg PO QAM #90 tab 06/09/20 11/01/20 Rx apixaban 5 mg tablet 5 mg PO BID #60 tab 06/15/20 11/01/20 Rx insulin lispro 100 unit/mL See Rx Instructions SUBCUT TID ml 08/25/20 11/01/20 History subcutaneous pen lorazepam 0.5 mg tablet 0.5 mg PO BID PRN #30 tab 10/06/20 11/01/20 Rx sertraline 50 mg tablet 50 mg PO DAILY #30 tab 10/06/20 11/01/20 Rx hydrochlorothiazide 25 mg tablet 25 mg PO DAILY #90 tab 10/12/20 11/01/20 Rx hydrocodone 10 mg-acetaminophen See Rx Instructions PO Q6H PRN #90 10/20/20 11/01/20 Rx 325 mg tablet tab esomeprazole magnesium [Nexium] 40 mg PO DAILYBB 11/01/20 11/01/20 History famotidine 20 mg PO BID 11/01/20 11/01/20 History fexofenadine [Elle] 180 mg PO DAILY 11/01/20 11/01/20 History insulin glargine [Lantus Solostar 10 unit SUBCUT BIDM 11/01/20 11/01/20 History U-100 Insulin] levothyroxine 25 mcg PO DAILYBB 11/01/20 11/01/20 History metoprolol tartrate 50 mg PO QAM 11/01/20 11/01/20 History ondansetron 8 mg PO Q8H PRN 11/01/20 11/01/20 History Patient History Medical History Adenocarcinoma of pancreas Diverticulosis of colon History of adenomatous polyp of colon Hypertension Perforated sigmoid colon Renal colic on right side Right knee injury Right-sided thoracic back pain Stage III chronic kidney disease Surgical History History of section (02/05/12) History of colon surgery History of eye surgery History of partial pancreatectomy Hx of cholecystectomy Hx of hernia repair Hx of tonsillectomy Post-splenectomy S/P exploratory laparotomy Family History Father Myocardial infarction Mother Cardiac disorder Stroke Diabetes Gallbladder disease Hypertension Brother Cardiac disorder Diabetes Kidney disease Myocardial infarction Denies family history of Ovarian cancer Prostate cancer Breast cancer Colorectal cancer Social History Smoking Status: Never smoker Do You Dip or Chew Tobacco: No; Hx Alcohol Use: No Hx Substance Use: No Preferred Language: Kazakh Communication Ability: Effective Beliefs That Will Affect Care: None marital status: Current Living Situation: Spouse Current Living Situation Comment: and son current occupational status: retired Other Information That Helps Us Care for You: No Feels Safe at Home: Yes Safety Concerns: Feels Safe At This Time caffeine: No Dental Care, Regularly: No Physical Activity Frequency: Daily Seatbelt Use: never Sunscreen Use: No Assistive Devices: Glasses Physical Exam Physical Exam: Constitutional: Patient was admitted with severe uncontrolled abdominal pain. However he has been placed on adjusted pain medication. Presently she is without pain. She is obese and cooperative. Eyes: Sclera white conjunctival pink. Oral cavity. There is no evidence of mucositis. There is evidence of poor dentition but no active dental disease. Neck: No palpable cervical or supraclavicular adenopathy. Lungs: Adequate respiratory effort with lungs clear to auscultation and percussion. Heart: Regular rhythm without murmurs. Breast: There are no palpable breast masses skin changes or axillary adenopathy upon examination of the right and left breast. Abdomen: Soft with a area of tenderness in the upper central portion of the abdomen. There is no palpable abdominal masses and normal bowel sounds. Extremities: Adequate movement of all 4 extremities with no edema. Adenopathy: There is no cervical, supraclavicular, axillary or inguinal adenopathy appreciated. Neurologic: Patient is alert and oriented. There is no evidence of cranial nerve deficits or motor or cerebellar changes. Results (Rad Onc) Laboratory Results: were reviewed and pertinent findings noted in HPI Pathology Results: were reviewed and pertinent findings noted in HPI Imaging Studies: were reviewed and pertinent findings noted in HPI Time Spent Attending This documentation has been prepared in full by Dr. Calero. I have personally reviewed the services described and have reviewed the documentation to ensure its accuracy. I spent 40 minutes with direct face to face interaction with the patient which included obtaining clinical information, examining the patient recommending a plan of action discussing with the patient's daughter on the phone and answering questions. ABEBA
[2020-11-02] MEDS: HYDROcodone/ACETAMINOPHEN 10/325 TAB PO PRN ×2 (18:32→22:29)
[2020-11-02] MEDS: ATORVASTATIN 40 MG TAB PO SCH (22:29)
[2020-11-03] MEDS: CHECK fentaNYL PATCH PLACEMENT SCH ×4 (00:08→23:21)
[2020-11-03] MEDS: HYDROcodone/ACETAMINOPHEN 10/325 TAB PO PRN ×4 (02:29→20:19)
[2020-11-03] MEDS: PANTOprazole 40 MG TAB PO SCH (05:54)
[2020-11-03] MEDS: LEVOTHYROXINE SODIUM 25 MCG TABLET PO SCH (05:54)
[2020-11-03] MEDS: amLODIPine BESYLATE 5 MG TAB PO SCH (08:57)
[2020-11-03] MEDS: METOPROLOL TARTRATE 50 MG TAB PO SCH (08:57)
[2020-11-03] MEDS: CYANOCOBALAMIN 500 MCG TABLET (VITAMIN B-12) PO SCH (08:57)
[2020-11-03] MEDS: CHOLECALCIFEROL 1,000 UNITS 25 MCG TAB PO SCH (08:57)
[2020-11-03] MEDS: APIXABAN 5 MG TABLET PO SCH ×2 (08:57→20:18)
[2020-11-03] MEDS: POLYETHYLENE (MIRALAX) 17 GM PACK PO SCH (08:57)
[2020-11-03] MEDS: FAMOTIDINE 20 MG TAB PO SCH ×2 (08:57→20:18)
[2020-11-03] MEDS: SERTRALINE HCL 50 MG TABLET PO SCH (08:57)
[2020-11-03] MEDS: FEXOFENADINE HCL 180 MG TAB PO SCH (08:57)
[2020-11-03] MEDS: SUCRALFATE 1 GM/10 ML UDC PO SCH ×4 (08:58→20:18)
[2020-11-03] MEDS: INSULIN ASPART 100 UNITS/ML 3 ML PEN SC SCH ×4 (09:06→21:11)
[2020-11-03] MEDS: INSULIN GLARGINE SOLOSTAR 100 UNITS/ML 3 ML PEN SQ SCH ×2 (09:07→18:06)
[2020-11-03 09:36] LABS: BUN Creatinine Ratio 21.7 (10-20); Calcium 9.3 mg/dl (8.5-10.1); Creatinine Clr Calc Pharmacy 39.2 ml/min; Est GFR (African American) 43.8; Est GFR (Non-African American) 37.8; Potassium 3.7 mmol/L (3.5-5.1)
--- NOTE | 2020-11-03 15:00 | Palliative Care Progress Note ---
Date of Service November 03, 2020 Assessment & Plan (1) Palliative care encounter: As previously stated, patient was agreeable to pursue a radiation oncology appointment while here in the hospital. The patient went for CT simulation today and will undergo 10 radiation fraction doses starting next week. I spoke with the patient who is agreeable to such and would like to transition to hospice thereafter. I spoke directly with Haydee, the patients daughter, twice today. She is agreeable to Hospice as well. Since the patient will be receiving 10 fraction doses of radiation, we will discharge her with Home Health who will assist with transitioning her to hospice after the completion of her fractions. From a pain standpoint, I left her Fentanyl 50mcg patch in place. She appears to have tolerated the transition from IV Dilaudid to Vicodin. She has utilized FIVE doses of hydrocodone over the past 24 hours. I had a conversation with Dr. Wilkins who will see Ms. Lozano as an outpatient on . Plan is for patient to be discharged tomorrow morning. Thank you for involving us with Ms. Lozano. (2) Intractable abdominal pain: (3) Metastasis from pancreatic cancer: (4) Anxiety: (5) Abdominal pain: Admission and Anticipated Discharge Date Admission Date: November 02, 2020 Subjective Pt sitting in her bedside chair in no apparent distress Pt was able to have her CT simulation today (daughter was in attendance) Please see A/P for further details Review of Systems Review of Systems: [place] Symptom Assessment Scale - Revised Pain: 3/3 Tiredness: 0/3 SOB: 0/3 Anxiety: 0/3 Depression: 1/3 PPS: 30% Physical Exam Constitutional: cooperative and comfortable Respiratory: normal respiratory effort, lungs clear to auscultation Cardiovascular: RRR, no murmur, no edema Gastrointestinal (Abdomen): Percussion/Palpation: + abdomen tender, + guarding and abdomen soft Psychiatric: A+Ox3, euthymic affect Insight: good insight Judgement: good judgement Results & Data ([facility]) Vital Signs (Past 12 Hours) Vital Signs Temp Pulse Resp BP Pulse Ox 11/03/20 08:20 36.8 C 71 18 148/80 H 94 PG Care Time/CCT Total # of Minutes Spent Total Time Spent with Patient: Total time spent is greater than 50% in coordination of care (as documented) at patient's floor/unit and/or counseling patient: 45 Coding Level of Care Code 35563 Subseq Hosp Care Lvl 3 Diagnoses Palliative care encounter Z51.5 Intractable abdominal pain R10.9 Metastasis from pancreatic cancer C79.9; C25.9 Anxiety F41.9 Abdominal pain R10.9 Time Spent (min) 45 Time Spent Midlevel Total time spent 45 minutes with > 50% of that time spent assessing the patient, discussing goals of care with patients daughter and collaborating with IDT
[2020-11-03] MEDS ORDERED: POLYETHYLENE (MIRALAX) 17 GM PACK PO STA (16:08)
[2020-11-03] MEDS ORDERED: bisacodyL 5 MG TABEC PO ONE (16:08)
[2020-11-03] MEDS: ATORVASTATIN 40 MG TAB PO SCH (20:19)
--- NOTE | 2020-11-03 23:23 | Hospitalist Progress Note ---
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 Cont fentanyl patch - started last week at palliative care clinic in [place] (Dr Diamante Albert). Pain improved with use of hydrocodone prn. At discharge will cont the fentanyl patch and hydrocodone. Palliative care consult appreciated; pain med recs appreciated. Rad onc to perform outpatient palliative xrt. If all else fails could consider pain management referral for ?celiac block?? Cont eliquis for h/o PE and DVT prevention. Bowel regimen due to narcotics. No longer receiving chemo via [facility]. 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, with long- term current use of insulin: lantus/novolog (7) Hypothyroidism: TSH 06/2020 wnl cont synthroid (8) Hyperlipidemia: (9) Hypertension: cont home meds (10) Therapeutic opioid-induced constipation (OIC): dulcolax and miralax NOW at discharge - senna (or dulcolax) with miralax daily can likely d/c home tomorrow with family Admission and Anticipated Discharge Date Admission Date: November 02, 2020 Subjective patient today feeling much better abd pain improved with use of hydrocodone prn tolerating diet doesn't see much difference in upper GI pain w/ carafate ambulating when offered to d/c home today she declined stating "I would rather stay the night and make sure my pain is ok" Review of Systems Respiratory: no dyspnea Cardiovascular: no chest pain Gastrointestinal: + constipation; no nausea and no vomiting Physical Exam Constitutional: no acute distress, not obese and no altered mental status ENMT: external ear and nose normal, oropharynx normal Respiratory: normal respiratory effort, lungs clear to auscultation no respiratory distress Auscultation: + diminished lung sounds (Bases) Cardiovascular: Rate/Rhythm: regular rate and regular rhythm Heart Sounds: normal S1 and normal S2 Vessels: posterior tibial pulses present and dorsalis pedis pulses present; no JVD Gastrointestinal (Abdomen): Inspection/Auscultation: normal bowel sounds; abdomen not distended Percussion/Palpation: + hepatomegaly; abdomen nontender Psychiatric: A+Ox3, euthymic affect Results & Data Results & Data ([facility]) Vital Signs (Past 12 Hours) Vital Signs Temp Pulse Resp BP Pulse Ox 11/03/20 16:03 36.5 C 61 18 128/71 94 Laboratory Results Laboratory Results - last 24 hr 11/03/20 11/03/20 11/03/20 08:16 08:23 11:56 Sodium 140 Potassium 3.7 Chloride 103 Carbon Dioxide 28 Anion Gap 8.0 BUN 29 H Creatinine 1.35 H Est Cr Clr Drug Dosing 39.2 Est GFR ( Amer) 43.8 Est GFR (Non-Af Amer) 37.8 BUN/Creatinine Ratio 21.7 H Glucose 164 H POC Glucose 177 H 192 H Calcium 9.3 11/03/20 11/03/20 16:58 20:39 Sodium Potassium Chloride Carbon Dioxide Anion Gap BUN Creatinine Est Cr Clr Drug Dosing Est GFR ( Amer) Est GFR (Non-Af Amer) BUN/Creatinine Ratio Glucose POC Glucose 190 H 146 H Calcium PG Care Time/CCT Total # of Minutes Spent Total Time Spent with Patient: Total time spent is greater than 50% in coordination of care (as documented) at patient's floor/unit and/or counseling patient: Coding Level of Care Code 24567 Subseq Hosp Care Lvl 2 Diagnoses Intractable abdominal pain R10.9 Metastasis from pancreatic cancer C79.9; C25.9 Depression F32.9 Stage III chronic kidney disease N18.3 Pulmonary embolism on right I26.99 Uncontrolled type 2 diabetes mellitus with kidney complication, with long-term current use of insulin E11.29; E11.65; Z79.4 Hypothyroidism E03.9 Hyperlipidemia E78.5 Hypertension I10 Hypertension type: essential hypertension Therapeutic opioid-induced constipation (OIC) K59.03; T40.2X5A (1) Hypertension Hypertension type: essential hypertension Qualified Code(s): I10 - Essential (primary) hypertension
[2020-11-04] MEDS: HYDROcodone/ACETAMINOPHEN 10/325 TAB PO PRN ×3 (00:17→12:01)
[2020-11-04] MEDS: LEVOTHYROXINE SODIUM 25 MCG TABLET PO SCH (06:39)
[2020-11-04] MEDS: PANTOprazole 40 MG TAB PO SCH (06:39)
[2020-11-04] MEDS: fentaNYL 50 MCG/HR TDSY TD SCH (06:39)
[2020-11-04 07:06] VITALS: BP 138/81; TEMP 97.5; O2SAT 90
[2020-11-04] MEDS: APIXABAN 5 MG TABLET PO SCH (08:23)
[2020-11-04] MEDS: CHOLECALCIFEROL 1,000 UNITS 25 MCG TAB PO SCH (08:24)
[2020-11-04] MEDS: SERTRALINE HCL 50 MG TABLET PO SCH (08:24)
[2020-11-04] MEDS: FAMOTIDINE 20 MG TAB PO SCH (08:24)
[2020-11-04] MEDS: amLODIPine BESYLATE 5 MG TAB PO SCH (08:24)
[2020-11-04] MEDS: SUCRALFATE 1 GM/10 ML UDC PO SCH (08:24)
[2020-11-04] MEDS: FEXOFENADINE HCL 180 MG TAB PO SCH (08:24)
[2020-11-04] MEDS: CYANOCOBALAMIN 500 MCG TABLET (VITAMIN B-12) PO SCH (08:24)
[2020-11-04] MEDS: METOPROLOL TARTRATE 50 MG TAB PO SCH (08:24)
[2020-11-04] MEDS: CHECK fentaNYL PATCH PLACEMENT SCH (08:25)
[2020-11-04] MEDS: POLYETHYLENE (MIRALAX) 17 GM PACK PO SCH (08:26)
[2020-11-04] MEDS: INSULIN ASPART 100 UNITS/ML 3 ML PEN SC SCH (09:14)
[2020-11-04] MEDS: INSULIN GLARGINE SOLOSTAR 100 UNITS/ML 3 ML PEN SQ SCH (09:19)
--- NOTE | 2020-11-04 10:38 | Billing Data ---
Date of Service November 04, 2020 Coding Level of Care Code 89969 Initial Inpt Care Lvl 2
[2020-11-04 12:16] VITALS: PULSE 93
== END 2020-11-04 12:16 | disposition home health service (06) | DRG 436 ==
LOC: ED 02:03 → 3N 02:03 → SUATTDRO 04:29 → 3N 04:55 → SUATTDRO 11-02 15:00